=== PATIENT | male | born 1945 | race Caucasian/White ===

== ENCOUNTER → 2017-04-22 | Outpatient (CLI) | payer MEDICARE ==
--- NOTE | 2017-04-22 18:45 | CONS ---
DATE OF CONSULTATION: 04/22/2017 72-year-old gentleman who has been evaluated in the sleep center for possible obstructive sleep apnea-hypopnea syndrome. CONSULTATION/NEW PATIENT EVALUATION HISTORY OF PRESENT ILLNESS/SLEEP-WAKE EVALUATION: SLEEP SCHEDULE: Patient's usual sleep schedule is from around 11:30 p.m. until 7:30 or 8 a.m. FALLING ASLEEP: No problem with falling asleep. He has a TV set in bedroom. DURING SLEEP: Usually sleeps on the side position. He has loud snoring and witnessed episodes of stopped breathing during sleep by his . He wakes up from sleep 3 times with one episode nocturia. He has also sweating, dry mouth. DURING THE DAY/WAKE STATE: In the morning, patient wakes up tired, falling asleep during the day. He has problems with memory, [place] Sleepiness Scale is 5. Past medical history is positive for hypertension, end-stage renal disease, status post kidney transplant, coronary artery disease, with stent insertion and CABG. Recently has been told about atrial fibrillation, arthritis of the ankles, hips and arms. Left knee replacement. CABG, hernia repair, kidney transplant. MEDICATIONS: 1. Aspirin. 2. Simvastatin. 3. Tacrolimus. 4. Doxazosin. 5. Amlodipine. 6. Xarelto. 7. Vitamins. 8. Iron supplements. SOCIAL HISTORY: Positive for smoking many years ago; quit 45 years ago. Alcohol consumption rarely. FAMILY HISTORY: Hypertension, heart problems, hyperlipidemia, epilepsy, arthritis, cancer. REVIEW OF SYSTEMS: No fevers. No double vision. No recent chest pain. No shortness of breath. No abdominal pain. No bleeding episodes. No blood in urine. No seizure episodes. PHYSICAL EXAMINATION: gentleman without distress. VITAL SIGNS: BP 136/82, HR 58, RR 16. Height 5 feet 6 inches. Weight 167, BMI 26.9. Neck 15-1/2 inches in circumference. Temperature 97.3. Oxygen saturation at room air 96%. Oropharynx retrognathia 8 mm, low position of soft palate, restriction of nasal breathing. NECK: Supple. No JVD. Thyroid is not palpable. LUNGS: Clear to percussion and to auscultation. Good air exchange. No wheezing or rhonchi. HEART: S1, S2 irregular irregularly heart tones. ABDOMEN: Soft and nontender. Bowel sounds are present. No organomegaly appreciated. EXTREMITIES: No clubbing or cyanosis. FRUIT VENDOR: Awake, alert, and oriented x3. Cranial nerves 2 to 7 intact. There is no fasciculation or atrophy noted. No focal deficits observed. IMPRESSION: 1. Snoring, witnessed episodes of stopped breathing, low position of his soft palate, awakenings from sleep, retrognathia, patient takes naps during the day, obstructive sleep apnea-hypopnea syndrome. 2. Coronary artery disease, status post stent insertions coronary artery bypass graft. 3. Hypertension. 4. History of end-stage renal disease secondary to Hypertension ? Status post kidney transplant in 1997. 5. Status post hernia repair. 6. Hyperlipidemia. 7. Atrial fibrillation. 8. Status post left knee replacement. 9. Arthritis, of the hands, ankles and hips. PLAN: 1. Polysomnography for evaluation of patient's breathing during sleep. 2. CPAP/BiPAP titration if sleep study confirms obstructive sleep apnea-hypopnea syndrome. 3. Preferable position during sleep on the side. 4. No driving if patient feels any sleepiness. Patient is aware of civil and criminal liability for unsafe driving. 5. I will see patient for follow-up visit to explain results of the testing and following plan. Thank you very much for referring this patient for consultation. Sincerely, Mike Cervantes MD, PhD, FAASM. Diplomat of [place] [employer], Sleep Medicine Board by [place] [employer] [place] [employer] Care Connector of [facility] [place]
== END ==
LOC: SLEEP 13:55
PROVIDERS: ATTEND Internal Medicine
DX: R06.83 Snoring (principal); I25.10 Atherosclerotic heart disease of native coronary artery without angina pectoris; I10 Essential (primary) hypertension; I12.0 Hypertensive chronic kidney disease with stage 5 chronic kidney disease or end stage renal disease; N18.6 End stage renal disease; M19.90 Unspecified osteoarthritis, unspecified site; E78.5 Hyperlipidemia, unspecified; I48.91 Unspecified atrial fibrillation; Z96.652 Presence of left artificial knee joint; Z79.82 Long term (current) use of aspirin; Z79.899 Other long term (current) drug therapy
CPT/HCPCS: 99211

== ENCOUNTER → 2017-08-05 | Outpatient (CLI) | payer MEDICARE ==
--- NOTE | 2017-08-05 19:00 | PN ---
PROGRESS NOTE DATE OF SERVICE: 08/05/2017. 72-year-old gentleman has been followed in the Sleep center for treatment of severe obstructive sleep apnea-hypopnea syndrome. The patient recently had CPAP titration and I checked his new machine. He is trying to use machine every night with a nasal pillow mask but has some leak from the mask and sometimes probably takes his mask off for the second part of the night. I checked his CPAP unit. Usage is 30/30 nights, but 16/30 nights for more than 4 hours. Average usage according to the machine is 3.6 hours. Pressure on the machine is 10/6 cm of water. Apnea-hypopnea index 15.5. [place] Sleepiness Scale today is 7. MEDICATIONS: 1. Simvastatin. 2. . 3. Doxazosin. 4. Amlodipine. 5. Xarelto. 6. Vitamins. 7. Iron supplement. PHYSICAL EXAM: General: Patient is in no distress. VITAL SIGNS: BP 148/100, HR 60, RR 16, weight 174 pounds. Temp 98.2, oxygen saturation at room air 97%. HEENT: PERRLA, EOMI. Evaluation of oropharynx extremely low position of soft palate. NECK: Supple. No JVD. Thyroid is not palpable. HEART: S1, S2 irregularly irregular. LUNGS: clear to percussion and to auscultation. Good air exchange. No wheezing or rhonchi. ABDOMEN: Slightly obese. Soft and nontender. Bowel sounds are present. No organomegaly appreciated. EXTREMITIES: No cyanosis or clubbing. LASER PRINT OPERATOR: Awake, alert and oriented x3. Cranial nerves II through VII intact. There is no fasciculation or atrophy noted. No focal deficits observed. IMPRESSION: 1. Obstructive sleep apnea-hypopnea syndrome. Patient is using equipment every night but not for the whole night. Sleeps better with the machine and feels better. 2. Severe periodic limb movements during titration. 3. Coronary artery disease, status post stent insertion and coronary artery bypass grafting. 4. Hypertension. 5. History of end-stage renal disease, status post kidney transplant in 1997. 6. Status post hernia repair. 7. Hyperlipidemia. 8. Atrial fibrillation. 9. Status post left knee replacement. 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 PLAN: 1. We fitted the patient with a different nasal pillow mask Franco FX. 2. I adjusted regimen in the machine to higher level with maximum of 15 and minimal 6. 3. The patient is to continue to use equipment every night for the whole night. 4. No driving if feeling sleepiness. Thank you very much for allowing me to participate in management of your patient. Sincerely, Mike Cervantes MD, PhD, FAASM Diplomat of [place] Board of Sleep Medicine, Sleep Medicine Board by [employer] Specialties [employer] Board of Internal Medicine House Wrecker [facility] [place] MMODL / ENEDINAN: [id number] /
== END ==
LOC: SLEEP 16:38
PROVIDERS: ATTEND Internal Medicine
DX: G47.33 Obstructive sleep apnea (adult) (pediatric) (principal); G47.61 Periodic limb movement disorder; I25.10 Atherosclerotic heart disease of native coronary artery without angina pectoris; I10 Essential (primary) hypertension; E78.5 Hyperlipidemia, unspecified; I48.91 Unspecified atrial fibrillation; M19.041 Primary osteoarthritis, right hand; M19.042 Primary osteoarthritis, left hand; M16.0 Bilateral primary osteoarthritis of hip; Z79.899 Other long term (current) drug therapy

== ENCOUNTER → 2017-08-25 | Outpatient (CLI) | payer MEDICARE ==
--- NOTE | 2017-08-25 18:47 | PN ---
PROGRESS NOTE DATE OF SERVICE: 08/25/2017 72-year-old gentleman has been followed in Sleep Center for treatment of obstructive sleep apnea-hypopnea syndrome. The patient continued to use his machine every night, and according to him and his family he is using it for the whole nights, but reading from the machine shows for the last months usage is 30/30 nights, but usage for more than 4 hours only 9/30 nights. Average usage according to the machine 2.8 hours. Average pressure in the machine is 13.2/9.2. I put it in automatic regimen and a maximal inspiratory pressure 15 and minimal expiratory pressure 6. Leak is 29 L/minute which is borderline. With this regimen Apnea-hypopnea index 19.5, central abnormalities 2.3. [place] Sleepiness Scale today is 8. MEDICATIONS: 1. Simvastatin. 2. Doxazosin. 3. Amlodipine. 4. Xarelto. 5. Vitamins. 6. Iron supplement. PHYSICAL EXAM: gentleman without distress BP 167/92, HR 49, RR 16, height 5 feet 6 inches and weight 174, BMI 27.6, temperature 97.9, oxygen saturation on room air 96%. Evaluation of oropharynx showed low position of soft palate: Heart S1, S2 irregularly regular. Neck Supple, no JVD. Thyroid is not palpable. LUNGS Clear to percussion and to auscultation. Good air exchange. No wheezing or rhonchi. HEART S1, S2 regular. No murmurs, gallops, or rubs. ABDOMEN Soft and nontender. Bowel sounds are present. No organomegaly appreciated. EXTREMITIES No clubbing or cyanosis. HEDGE FUND TRADER Awake, alert, and oriented X3. Cranial nerves 2 to 7 intact. There is no fasciculation or atrophy. noted. No focal deficits observed. IMPRESSION: 1. Obstructive sleep apnea-hypopnea syndrome. Patient is using equipment every night but possibly not always for the whole night by the reading from the machine, but according to family, again he is using equipment every night for the whole night. Breathing improved on the machine, but not to the normal range. 2. Coronary artery disease, status post stent insertion. 3. Hypertension. 4. Atrial fibrillation. 5. Polyarthritis of hands and hips. 6. History of severe periodic limb movements during titration. 7. Hyperlipidemia. 8. Status post left knee replacement. PLAN: 1. I adjusted maximal inspiratory pressure to 16 and minimal expiratory pressure to 5. 2. Patient will continue to use his equipment every night for the whole night. 3. I will write a prescription to check machine in [employer]. 4. No driving if feeling sleepiness. Thank you very much for allowing me to participate in management of your patient. Sincerely, Mike Cervantes MD, PhD, FAASM Diplomat of [employer] Board [employer] Medical Specialties [employer] Board of Internal Medicine Gunite Mixer of [facility] [place] MMODL / IJN: [id number] /
== END | disposition home or self-care (01) ==
LOC: SLEEP 16:15
PROVIDERS: ATTEND Internal Medicine
DX: G47.33 Obstructive sleep apnea (adult) (pediatric) (principal); I25.10 Atherosclerotic heart disease of native coronary artery without angina pectoris; I10 Essential (primary) hypertension; E78.5 Hyperlipidemia, unspecified; I48.91 Unspecified atrial fibrillation; M13.842 Other specified arthritis, left hand; M13.841 Other specified arthritis, right hand; M13.852 Other specified arthritis, left hip; M13.851 Other specified arthritis, right hip; Z79.899 Other long term (current) drug therapy; Z96.652 Presence of left artificial knee joint

== ENCOUNTER → 2017-10-14 | Outpatient (CLI) | payer MEDICARE ==
--- NOTE | 2017-10-14 11:50 | PN ---
PROGRESS NOTE DATE OF SERVICE: 10/14/2017 A 72-year-old gentleman has been followed in sleep center for treatment of obstructive sleep apnea-hypopnea syndrome. During the previous visit because of significant respiratory abnormalities on the machine, apnea-hypopnea index at that time was 19.5 with central abnormality just 2.3. I changed regimen in the machine to minimal expiratory pressure of 5.0 and maximal inspiratory pressure to 16 cm of water with a pressure support of 4. The patient came back to check his progress. He sleeps well. No sleepiness during the day. [place] Sleepiness Scale is 5. No snoring with the machine. I checked his machine. Usage is 100% of the time more than 4 hours. Average usage is 8 hours, 95% of pressure is 14.2 with expiratory pressure 10.2. Leak is 26 L/minute which is about the same. Apnea-hypopnea index for the last night only 3.8 for the last month it is 7.2, total apnea index 6.9, central apnea index 2.0. MEDICATIONS: Doxazosin, simvastatin, amlodipine, Xarelto, iron supplement, vitamins. PHYSICAL EXAM: During physical exam, patient in no distress. VITAL SIGNS: BP 150/82, HR 54, RR 16, height 5 feet 6 inches, weight 180, BMI 29.0, temperature 97.7, oxygen saturation on room 98%. HEENT: PERRLA, EOMI, evaluation of oropharynx showed low position of soft palate. Neck: Supple, no JVD. Thyroid is not palpable. LUNGS: Clear to percussion and to auscultation. Good air exchange. No wheezing or rhonchi. HEART: S1, S2, irregular. ABDOMEN: Soft and nontender. Bowel sounds are present. No organomegaly appreciated. EXTREMITIES: No clubbing or cyanosis. LEVEL VIAL INSIDE GRINDER: Awake, alert, and oriented x3. Cranial nerves 2 to 7 intact. There is no fasciculation or atrophy. noted. No focal deficits observed. IMPRESSION: 1. Obstructive sleep apnea-hypopnea syndrome, presently on control with above- mentioned regimen of minimal expiratory pressure of 5.0, maximal inspiratory pressure of 16, and pressure support of 4. 2. Coronary artery disease, status post stent insertion. 3. Hypertension. 4. History of atrial fibrillation. 5. Polyarthritis of hands and hips. 6. History of severe periodic limb movements during titration. 7. Hyperlipidemia. 8. Status post left knee replacement. PLAN: 1. Continue treatment with positive air pressure every night for the whole night. 2. Watching weight. 3. Sleep hygiene with regular time in bed for at least 8 hours. 4. No driving if feeling sleepiness. Thank you very much for allowing me to participate in management of your patient Sincerely, Mike Cervantes MD, PhD, FAASM Diplomat of [place] [employer] Medical Specialties [place] Board of Internal Medicine Hand Button Splitter of [facility] [place] MMODL / IJN: [id number] /
== END | disposition home or self-care (01) ==
LOC: SLEEP 10:56
PROVIDERS: ATTEND Internal Medicine
DX: G47.33 Obstructive sleep apnea (adult) (pediatric) (principal); I25.10 Atherosclerotic heart disease of native coronary artery without angina pectoris; I10 Essential (primary) hypertension; E78.5 Hyperlipidemia, unspecified; M13.89 Other specified arthritis, multiple sites; Z96.652 Presence of left artificial knee joint; Z95.5 Presence of coronary angioplasty implant and graft; Z86.79 Personal history of other diseases of the circulatory system; Z79.899 Other long term (current) drug therapy; Z79.01 Long term (current) use of anticoagulants

== ENCOUNTER → 2018-03-31 | Outpatient (CLI) | payer MEDICARE ==
--- NOTE | 2018-03-31 11:33 | SFUN ---
SLEEP CENTER FOLLOW UP NOTE DATE OF SERVICE: 03/31/2018 A 73-year-old gentleman has been followed in the sleep center for treatment of obstructive sleep apnea-hypopnea syndrome. Patient continued to use CPAP equipment every night without significant problems. He did not change any of his equipment for the last year. I checked his BiPAP unit for the last 6 months, usage is 159/180 nights for more than 4 hours. Average usage is 7.1 hour. Pressure in the range of BiPAP up to 16 with a pressure support of 4, minimal inspiratory pressure is 5. Most of the time, pressure in the range 14/10. Leak about 23 L/minute. Apnea-hypopnea index for the 6 months is 7.6. The patient was hospitalized recently for COPD problems. [place] Sleepiness Scale today is 4. MEDICATIONS: Albuterol, budesonide, amlodipine, doxazosin, losartan, mycophenolate, Xarelto, , simvastatin. PHYSICAL EXAMINATION: During physical exam, patient in no distress. VITAL SIGNS: BP 133/77, HR 60, RR 16, height 5 feet 6-1/2 inches, weight 172, BMI 27.3. The patient decreased his weight around 8 pounds comparing with the previous visit. Temperature 97.2, oxygen saturation room air 97% HEENT: PERRLA, EOMI. Oropharynx extremely low position of soft palate. NECK: Supple, no JVD. Thyroid is not palpable. LUNGS: Clear to percussion and to auscultation. Good air exchange. No wheezing or rhonchi. HEART: S1, S2 regular. No murmurs, gallops, or rubs. ABDOMEN: Soft and nontender. Bowel sounds are present. No organomegaly appreciated. EXTREMITIES: No clubbing or cyanosis. PHARMACY TEACHER: Awake, alert, and oriented X3. Cranial nerves 2 to 7 intact. There is no fasciculation or atrophy. noted. No focal deficits observed. IMPRESSION: 1. Obstructive sleep apnea-hypopnea syndrome. The patient demonstrated good compliance with treatment, benefitting from treatment. 2. Leak has been documented. Patient did not change his mask and filters in the machine for about 1 year. 3. Coronary artery disease, status post stent insertion. 4. Chronic obstructive pulmonary disease. 5. Hypertension. 6. History of atrial fibrillation. 7. Polyarthritis of hands and hips. 8. History of significant periodic limb movements during titration. Clinically no significant amount of leg movements at night according to his . 9. Hyperlipidemia. 10.Status post left knee replacement. PLAN: 1. Patient will continue to use BiPAP equipment every night. 2. Prescription for all necessary CPAP supplies including mask, tube, filters to replace. 3. Sleep hygiene with regular time in bed for at least 8 hours. 4. Precautions related to driving. No driving if feeling any sleepiness. Thank you very much for allowing me to participate in management of your patient. Sincerely, Mike Cervantes MD, PhD, FAASM Diplomat of [place] [employer] Medical Specialties [place] Board of Internal Medicine Em Physician of [facility] [place] MMODL / IJN: [id number] /
== END | disposition home or self-care (01) ==
LOC: SLEEP 09:56
PROVIDERS: ATTEND Internal Medicine
DX: G47.33 Obstructive sleep apnea (adult) (pediatric) (principal); G47.61 Periodic limb movement disorder; I25.10 Atherosclerotic heart disease of native coronary artery without angina pectoris; M19.041 Primary osteoarthritis, right hand; M16.0 Bilateral primary osteoarthritis of hip; M19.042 Primary osteoarthritis, left hand; J44.9 Chronic obstructive pulmonary disease, unspecified; I10 Essential (primary) hypertension; I48.91 Unspecified atrial fibrillation; Z99.89 Dependence on other enabling machines and devices; Z79.51 Long term (current) use of inhaled steroids; Z79.899 Other long term (current) drug therapy; Z96.651 Presence of right artificial knee joint; Z95.5 Presence of coronary angioplasty implant and graft

== ENCOUNTER 2018-04-24 22:46 | Emergency (ER) | payer MEDICARE ==
[2018-04-24 22:51] VITALS: TEMP 97.7
--- NOTE | 2018-04-24 23:21 | ED ---
Abdominal Pain HPI - General Chief Complaint: Abdominal Pain Stated Complaint: Constipation Time Seen by Provider: 04/24/18 23:00 Source: patient, family, RN notes reviewed Mode of arrival: ambulatory Limitations: no limitations - History of Present Illness Initial Comments: This is a 73-year-old male who presents to the emergency department with chief complaint of low abdominal pain for the past 5-6 hours. Patient states that he has been trying to have a bowel movement all afternoon but has been unable to. He states his last bowel movement was this morning but it was hard. He states he has been taking laxatives and stool softeners. Patient describes his abdominal pain as achy. He states that it is constant. He denies any urinary symptoms such as dysuria or hematuria. 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 His last chemotherapy treatment was on . Patient denies any fevers but does report chills. - Related Data Home Medications Medication Instructions Recorded Confirmed Aspirin 325 mg PO DAILY 03/15/14 03/15/14 Cyclosporine, Modified [Neoral] 100 mg PO HS 03/15/14 03/16/14 Cyclosporine, Modified [Neoral] 125 mg PO DAILY 03/15/14 03/16/14 Doxazosin [Cardura] 2 mg PO BID 03/15/14 03/16/[address] [Myfortic] 480 mg PO BID 03/15/14 03/16/14 Niacin [Niacin ER] 500 mg PO HS 03/15/14 03/16/14 Simvastatin [Zocor] 20 mg PO HS 03/15/14 03/16/14 amLODIPine BESYLATE 2.5 mg PO DAILY 03/16/14 03/16/14 Previous Rx's Medication Instructions Recorded Polyethylene Glycol 3350 [Miralax] 17 gm PO DAILY #1 bottle 04/25/18 Allergies Allergy/AdvReac Type Severity Reaction Status Date / Time No Known Allergies Allergy Verified 04/24/18 22:51 Review of Systems ROS Statement: Those systems with pertinent positive or pertinent negative responses have been documented in the HPI. ROS Other: All systems not noted in ROS Statement are negative. Past Medical History Past Medical History: Cancer, Hypertension, Myocardial Infarction (VT), Renal Disease Additional Past Medical History / Comment(s): skin cancer Last Myocardial Infarction Date:: unknown History of Any Multi-Drug Resistant Organisms: None Reported Past Surgical History: Coronary Bypass/CABG, Heart Catheterization With Stent, Hernia Repair, Joint Replacement Additional Past Surgical History / Comment(s): kidney transplant Past Anesthesia/Blood Transfusion Reactions: No Reported Reaction Date of Last Stent Placement:: unknown Smoking Status: Former smoker Past Alcohol Use History: None Reported Past Drug Use History: None Reported General Exam - General Exam Comments Initial Comments: General: Awake and alert, well-developed; in no apparent distress. HEENT: Head atraumatic, normocephalic. Pupils are equal, round and reactive to light. Extraocular movements intact. Oropharynx moist without erythema or exudate. Neck: Supple. Normal ROM. Cardiovascular: Regular rate and rhythm. No murmurs, rubs or gallops. Chest symmetrical. Respiratory: Lungs clear to auscultation bilaterally. No wheezes, rales or rhonchi. Normal respiratory effort with no use of accessory muscles. Abdomen: Soft, non-distended. Mild generalized tenderness on palpation of lower abdomen. No rigidity, rebound or guarding. Normal bowel sounds in all 4 quadrants. Musculoskeletal: Normal ROM, no tenderness bilateral upper and lower extremities. Ambulating normally. Skin: [place], warm and dry without rashes or lesions. Neurological: Alert and oriented x3. CN II-XII grossly intact. Speech is fluent and answers are appropriate. No focal neuro deficits. Psychiatric: Normal mood and affect. No overt signs of depression or anxiety noted. Limitations: no limitations Course Vital Signs 04/24/18 04/25/18 22:48 01:24 Temperature 97.7 F Pulse Rate 85 77 Respiratory 18 16 Rate Blood Pressure 178/80 159/79 O2 Sat by Pulse 96 98 Oximetry - Reevaluation(s) Reevaluation #1: At this time, patient resting comfortably in bed. He continues to complain of abdominal pain. There is tenderness on palpation of the left lower quadrant. Discussed further evaluation with computed tomography scan. Patient is in agreement. 04/25/18 00:33 Medical Decision Making - Medical Decision Making This is a 73-year-old male who presented to the emergency department with chief complaint of low abdominal pain that started a few hours prior to arrival. Patient thought that it may be due to constipation, however does report that he had a bowel movement earlier this morning. X-ray KUB was obtained and revealed 2 calcifications over the left kidney, however no evidence for constipation. Patient is currently undergoing chemotherapy for squamous cell carcinoma. On physical examination, there is tenderness on palpation of the left lower quadrant. CMP revealed a BUN of 42 and a creatinine of 1.3, however patient does have a renal transplant. UA revealed moderate leukocyte esterase but is otherwise unremarkable. Computed tomography scan of the abdomen and pelvis without contrast revealed evidence for constipation and probable abdominal aortic aneurysm with chronic dissection. I spoke directly with radiology, Dr. Lundberg. He states that he saw calcifications in the lumen which are indicative of chronic minor dissections. He states this is a not a concern and patient is not actively dissecting. Did not recommend CTA. I discussed findings with patient. I did recommend taking MiraLAX daily until stools are soft for patient's constipation. Patient is in agreement with this. Vital signs are stable and he is in no acute distress. He will be discharged home at this time. All questions answered. - Lab Data Result diagrams: 04/24/18 23:13 04/24/18 23:13 Lab Results 04/24/18 04/24/18 04/24/18 Range/Units 23:13 23:13 23:13 WBC 8.1 (3.8-10.6) k/uL RBC 3.99 L (4.30-5.90) m/uL Hgb 11.1 L (13.0-17.5) gm/dL Hct 38.1 L (39.0-53.0) % MCV 95.5 (80.0-100.0) fL MCH 28.0 (25.0-35.0) pg MCHC 29.3 L (31.0-37.0) g/dL RDW 15.3 (11.5-15.5) % Plt Count 176 (150-450) k/uL Neutrophils % 93 % Lymphocytes % 3 % Monocytes % 3 % Eosinophils % 0 % Basophils % 0 % Neutrophils # 7.5 (1.3-7.7) k/uL Lymphocytes # 0.3 L (1.0-4.8) k/uL Monocytes # 0.2 (0-1.0) k/uL Eosinophils # 0.0 (0-0.7) k/uL Basophils # 0.0 (0-0.2) k/uL Hypochromasia Moderate Sodium 139 (137-145) mmol/L Potassium 4.6 (3.5-5.1) mmol/L Chloride 103 (98-107) mmol/L Carbon Dioxide 21 L (22-30) mmol/L Anion Gap 15 mmol/L BUN 42 H (9-20) mg/dL Creatinine 1.30 H (0.66-1.25) mg/dL Est GFR (CKD-EPI)AfAm 64 (>60 ml/min/1.73 sqM) Est GFR (CKD-EPI)NonAf 55 (>60 ml/min/1.73 sqM) Glucose 168 H (74-99) mg/dL Calcium 9.1 (8.4-10.2) mg/dL Total Bilirubin 0.7 (0.2-1.3) mg/dL AST 35 (17-59) U/L ALT 40 (21-72) U/L Alkaline Phosphatase 100 (38-126) U/L Total Protein 7.2 (6.3-8.2) g/dL Albumin 4.3 (3.5-5.0) g/dL Amylase 114 H (30-110) U/L Lipase 47 (23-300) U/L Urine Color Yellow Urine Appearance Clear (Clear) Urine pH 5.0 (5.0-8.0) Ur Specific [place] 1.011 (1.001-1.035) Urine Protein 1+ H (Negative) Urine Glucose (UA) Negative (Negative) Urine Ketones Negative (Negative) Urine Blood Negative (Negative) Urine Nitrite Negative (Negative) Urine Bilirubin Negative (Negative) Urine Urobilinogen <2.0 (<2.0) mg/dL Ur Leukocyte Esterase Moderate H (Negative) Urine RBC 1 (0-5) /hpf Urine WBC 3 (0-5) /hpf Ur Squamous Epith Cells <1 (0-4) /hpf Urine Mucus Rare H (None) /hpf - Radiology Data Radiology results: report reviewed, image reviewed X-ray KUB impression: Possible left renal calculi. Nonacute abdomen. CT abdomen and pelvis without contrast impression: Scarring and subsegmental atelectasis at the left posterior lung bases. Cardiomegaly. Left-sided transplant kidney shows no evidence of instruction. Constipation. Abdominal aortic aneurysm with probable chronic dissection. Disposition Clinical Impression: Constipation, Abdominal pain Disposition: HOME SELF-CARE Condition: Good Instructions: Constipation (ED) Additional Instructions: Please take medications as prescribed. Please follow up with primary care provider within 1-2 days. Return to emergency department if symptoms should worsen or any concerns arise. Prescriptions: Polyethylene Glycol 3350 [Miralax] 17 gm PO DAILY #1 bottle Is patient prescribed a controlled substance at d/c from ED?: No Referrals: Robin Ibanez MD [Primary Care Provider] - 1-2 days Time of Disposition: 02:31
[2018-04-24 23:41] LABS: Basophils % (A) 0 %; Eosinophils % (A) 0 %; HCT 38.1 % (39.0-53.0); HGB 11.1 gm/dL (13.0-17.5); Hypochromasia Moderate; Lymphocytes # (A) 0.3 k/uL (1.0-4.8); Lymphocytes % (A) 3 %; MCHC 29.3 g/dL (31.0-37.0); MCV 95.5 fL (80.0-100.0); Mean Platelet Volume 7.5; Monocytes # (A) 0.2 k/uL (0-1.0); Monocytes % (A) 3 %; Neutrophils # (A) 7.5 k/uL (1.3-7.7); Neutrophils % (A) 93 %; Platelet Count 176 k/uL (150-450); RBC 3.99 m/uL (4.30-5.90); RDW 15.3 % (11.5-15.5); WBC 8.1 k/uL (3.8-10.6)
[2018-04-24 23:42] LABS: Appearance,Urine Clear (Clear); Bilirubin,Urine Negative (Negative); Blood,Urine Negative (Negative); Color,Urine Yellow; Glucose,Urine (UA) Negative (Negative); Ketones,Urine Negative (Negative); Leukocyte Esterase,Urine Moderate (Negative); Mucus,Urine Rare /hpf; Nitrite,Urine Negative (Negative); Protein,Urine 1+ (Negative); RBC,Urine 1 /hpf (0-5); Specific Gravity,Urine 1.011 (1.001-1.035); Squamous Epithelial Cell,Urine <1 /hpf (0-4); Urobilinogen,Urine <2.0 mg/dL (<2.0); WBC,Urine 3 /hpf (0-5)
[2018-04-24 23:50] LABS: Albumin 4.3 g/dL (3.5-5.0); Calcium 9.1 mg/dL (8.4-10.2); Potassium 4.6 mmol/L (3.5-5.1); Total Bilirubin 0.7 mg/dL (0.2-1.3); Total Protein 7.2 g/dL (6.3-8.2)
--- NOTE | 2018-04-24 23:53 | XR ---
EXAMINATION TYPE: XR KUB DATE OF EXAM: 04/24/2018 COMPARISON: NONE HISTORY: Abdominal pain TECHNIQUE: 2 views FINDINGS: There is no sign of intestinal obstruction or pneumoperitoneum. There are two 7 mm calcific ations over the left kidney. There is no evidence of a mass. Lung bases are clear. IMPRESSION: Possible left renal calculi. Nonacute abdomen.
--- NOTE | 2018-04-25 01:11 | CT ---
EXAMINATION TYPE: CT abdomen pelvis wo con DATE OF EXAM: 04/25/2018 COMPARISON: NONE HISTORY: No prior, gen abd pain and constipation, history of renal transplant CT DLP: 496.50 mGycm Automated exposure control for dose reduction was used. TECHNIQUE: Helical acquisition of images was performed from the lung bases through the pelvis. FINDINGS: Lung bases are clear of consolidation. There is mild reticular linear density at the left lung base. There is no pleural effusion. Liver shows no focal defect. Bile ducts are not dilated. There is moder ate atherosclerotic vascular calcification. Spleen has normal size. There is no evidence of pancreati c mass. Gallbladder has normal size. There is advanced renal atrophy. Kidneys are small. There is 3.7 cm aneurysm of the mid abdominal aor ta. There is probably chronic aortic dissection. There is no retroperitoneal adenopathy. There is mil d aneurysm of the common iliac arteries. Bladder distends smoothly. There is left renal transplant. T here is no hydronephrosis. There is retained fecal material throughout the colon. There is no sign of free air. There is no ascites. There are spondylotic changes in the lumbar spine. IMPRESSION: SCARRING AND SUBSEGMENTAL ATELECTASIS AT THE LEFT POSTERIOR LUNG BASE. CARDIOMEGALY. LEFT SIDE TRANSP LANT KIDNEY SHOWS NO EVIDENCE OF OBSTRUCTION. CONSTIPATION. ABDOMINAL AORTIC ANEURYSM WITH PROBABLE C HRONIC DISSECTION.
[2018-04-25 01:27] VITALS: RESP 16
[2018-04-25] MEDS ORDERED: BISACODYL 5 MG TABLET.DR PO STA (02:29)
[2018-04-25 02:40] VITALS: BP 167/85; PULSE 80
== END 2018-04-25 03:03 | disposition home or self-care (01) ==
LOC: EC 22:46
DX: K59.00 Constipation, unspecified (principal); R10.30 Lower abdominal pain, unspecified; C80.1 Malignant (primary) neoplasm, unspecified; I10 Essential (primary) hypertension; I25.2 Old myocardial infarction; Z95.1 Presence of aortocoronary bypass graft; Z95.5 Presence of coronary angioplasty implant and graft; Z87.891 Personal history of nicotine dependence; Z94.0 Kidney transplant status; Z92.21 Personal history of antineoplastic chemotherapy; Z79.82 Long term (current) use of aspirin; Z79.899 Other long term (current) drug therapy
CPT/HCPCS: 36415; 74018; 74176; 80053; 81001; 82150; 83690; 85025; 99284

== ENCOUNTER 2018-04-27 05:22 | Inpatient (IN) | payer MEDICARE ==
[2018-04-27 06:08] LABS: Basophils % (A) 0 %; Eosinophils % (A) 0 %; HCT 35.7 % (39.0-53.0); HGB 11.1 gm/dL (13.0-17.5); Hypochromasia Slight; Lymphocytes # (A) 0.8 k/uL (1.0-4.8); Lymphocytes % (A) 17 %; MCH 29.4 pg (25.0-35.0); MCHC 31.2 g/dL (31.0-37.0); MCV 94.4 fL (80.0-100.0); Mean Platelet Volume 7.5; Monocytes # (A) 0.1 k/uL (0-1.0); Monocytes % (A) 3 %; Neutrophils # (A) 3.5 k/uL (1.3-7.7); Neutrophils % (A) 78 %; Platelet Count 195 k/uL (150-450); RBC 3.78 m/uL (4.30-5.90); RDW 15.1 % (11.5-15.5); WBC 4.5 k/uL (3.8-10.6)
[2018-04-27 06:36] LABS: ALT 75 U/L (21-72); AST 45 U/L (17-59); Albumin 3.8 g/dL (3.5-5.0); Alkaline Phosphatase 93 U/L (38-126); Amylase 106 U/L (30-110); Anion Gap 18 mmol/L; Blood Urea Nitrogen 68 mg/dL (9-20); Carbon Dioxide 20 mmol/L (22-30); Chloride 97 mmol/L (98-107); Glucose 139 mg/dL (74-99); Lipase <10 U/L (23-300); Potassium 4.5 mmol/L (3.5-5.1); Sodium 135 mmol/L (137-145); Total Protein 6.6 g/dL (6.3-8.2)
--- NOTE | 2018-04-27 06:44 | XR ---
EXAMINATION TYPE: XR abdomen acute w cxr DATE OF EXAM: 04/27/2018 COMPARISON: 04/24/2018 HISTORY: Lower abdominal pain TECHNIQUE: There is small calcified granuloma in the right upper lobe. There is mild linear density at the left lung base. There are some gas and fluid-filled loops of bowel in the abdomen. There are m ultiple fluid levels. There is 5 mm calcification over the left kidney. There is no sign of free air. IMPRESSION: Subsegmental atelectasis at the left lung base. Intestinal gas pattern consistent with ileus or parti al mechanical obstruction. No free air. Follow-up is recommended. Fluid levels and distention are inc reased compared to last exam.
[2018-04-27] MEDS ORDERED: ONDANSETRON 4 MG/2 ML VIAL IVP PRN (06:48)
[2018-04-27] MEDS ORDERED: NALOXONE 0.4 MG/ML 1 ML VIAL IV PRN (06:48)
[2018-04-27] MEDS: MORPHINE SULFATE 2 MG/ML SYRINGE IV PRN ×2 (06:58→11:34)
--- NOTE | 2018-04-27 07:13 | ED ---
Abdominal Pain HPI - General Chief Complaint: Abdominal Pain Stated Complaint: constipation Time Seen by Provider: 04/27/18 05:57 Source: patient, family Mode of arrival: wheelchair Limitations: no limitations - History of Present Illness Initial Comments: This patient is a 73-year-old man, who presents to be evaluated for abdominal pain. This is been going on for 3-4 days now. The patient also has been having some episodes of nausea and vomiting, and he feels like he is constipated , as he has not had a bowel movement since Wednesday. The patient was seen here 3 days ago for similar symptoms, but was feeling a little better and went home. He states that since then he has had increasing abdominal distention, more episodes of vomiting, now with some coffee-ground material, and is not passing any bowel movements and not having any flatus for the past day. MD Complaint: abdominal pain Onset/Timin -: days(s) Location: diffuse Radiation: none Migration to: no migration Severity: moderate Quality: cramping, fullness Consistency: colicky Improves With: vomiting Worsens With: nothing Associated Symptoms: nausea, vomiting, constipation - Related Data Home Medications Medication Instructions Recorded Confirmed Aspirin 325 mg PO DAILY 03/15/14 04/27/18 Cyclosporine, Modified [Neoral] 100 mg PO HS 03/15/14 04/27/18 Cyclosporine, Modified [Neoral] 125 mg PO DAILY 03/15/14 04/27/18 Doxazosin [Cardura] 2 mg PO BID 03/15/14 04/27/[address] [Myfortic] 480 mg PO BID 03/15/14 04/27/18 Niacin [Niacin ER] 500 mg PO HS 03/15/14 04/27/18 Simvastatin [Zocor] 20 mg PO HS 03/15/14 04/27/18 amLODIPine BESYLATE 2.5 mg PO DAILY 03/16/14 04/27/18 Previous Rx's Medication Instructions Recorded Polyethylene Glycol 3350 [Miralax] 17 gm PO DAILY #1 bottle 04/25/18 Allergies Allergy/AdvReac Type Severity Reaction Status Date / Time No Known Allergies Allergy Verified 04/27/18 05:29 Review of Systems ROS Statement: Those systems with pertinent positive or pertinent negative responses have been documented in the HPI. ROS Other: All systems not noted in ROS Statement are negative. Constitutional: Denies: fever, chills Respiratory: Denies: cough, dyspnea Cardiovascular: Denies: chest pain, edema, syncope Gastrointestinal: Reports: abdominal pain, nausea, vomiting, constipation, hematemesis (Coffee-ground material). Denies: diarrhea, melena, hematochezia Genitourinary: Denies: dysuria, hematuria Musculoskeletal: Denies: back pain Skin: Denies: rash Neurological: Denies: headache, weakness, numbness Hematological/Lymphatic: Denies: easy bleeding Past Medical History Past Medical History: Cancer, Hypertension, Myocardial Infarction ([place]), Renal Disease Additional Past Medical History / Comment(s): skin cancer Last Myocardial Infarction Date:: unknown History of Any Multi-Drug Resistant Organisms: None Reported Past Surgical History: Coronary Bypass/CABG, Heart Catheterization With Stent, Hernia Repair, Joint Replacement Additional Past Surgical History / Comment(s): kidney transplant Past Anesthesia/Blood Transfusion Reactions: No Reported Reaction Date of Last Stent Placement:: unknown Smoking Status: Former smoker Past Alcohol Use History: None Reported Past Drug Use History: None Reported General Exam Limitations: no limitations General appearance: alert, in no apparent distress Head exam: Present: atraumatic, normocephalic Eye exam: Present: normal appearance. Absent: scleral icterus, conjunctival injection ENT exam: Present: normal oropharynx Neck exam: Present: normal inspection Respiratory exam: Present: normal lung sounds bilaterally. Absent: respiratory distress, wheezes, rales, rhonchi, stridor Cardiovascular Exam: Present: regular rate, normal rhythm, normal heart sounds. Absent: systolic murmur, diastolic murmur, rubs, gallop GI/Abdominal exam: Present: soft, distended, diminished bowel sounds, hernia ( Patient has a left inguinal hernia which is currently reduced and is nontender.) . Absent: tenderness, guarding, rebound, rigid, mass, pulsatile mass Extremities exam: Present: normal inspection, normal capillary refill. Absent: pedal edema, calf tenderness Back exam: Present: normal inspection. Absent: CVA tenderness (R), CVA tenderness (L) Neurological exam: Present: alert Skin exam: Present: warm, dry, intact, normal color. Absent: rash Course Vital Signs 04/27/18 04/27/18 05:26 07:10 Temperature 98.6 F 97.4 F L Pulse Rate 92 81 Respiratory 18 18 Rate Blood Pressure 128/81 125/71 O2 Sat by Pulse 96 96 Oximetry Medical Decision Making - Medical Decision Making This patient is 73-year-old man presenting with increasing abdominal distention as well as abdominal discomfort and little bit of coffee-ground emesis. The patient's x-ray appears to show worsening ileus versus early small bowel obstruction. Given the discomfort and repeat vomiting, NG tube was discussed and the patient did agree for placement. I placed the NG tube personally, which the patient tolerated well. We did obtain a few 100 mL of coffee-ground material. - Lab Data Result diagrams: 04/27/18 05:50 04/27/18 05:50 Lab Results 04/27/18 04/27/18 04/27/18 Range/Units 05:50 05:50 05:50 WBC 4.5 (3.8-10.6) k/uL RBC 3.78 L (4.30-5.90) m/uL Hgb 11.1 L (13.0-17.5) gm/dL Hct 35.7 L (39.0-53.0) % MCV 94.4 (80.0-100.0) fL MCH 29.4 (25.0-35.0) pg MCHC 31.2 (31.0-37.0) g/dL RDW 15.1 (11.5-15.5) % Plt Count 195 (150-450) k/uL Neutrophils % 78 % Lymphocytes % 17 % Monocytes % 3 % Eosinophils % 0 % Basophils % 0 % Neutrophils # 3.5 (1.3-7.7) k/uL Lymphocytes # 0.8 L (1.0-4.8) k/uL Monocytes # 0.1 (0-1.0) k/uL Eosinophils # 0.0 (0-0.7) k/uL Basophils # 0.0 (0-0.2) k/uL Hypochromasia Slight Sodium 135 L (137-145) mmol/L Potassium 4.5 (3.5-5.1) mmol/L Chloride 97 L (98-107) mmol/L Carbon Dioxide 20 L (22-30) mmol/L Anion Gap 18 mmol/L BUN 68 H (9-20) mg/dL Creatinine 1.70 H (0.66-1.25) mg/dL Est GFR (CKD-EPI)AfAm 46 (>60 ml/min/1.73 sqM) Est GFR (CKD-EPI)NonAf 40 (>60 ml/min/1.73 sqM) Glucose 139 H (74-99) mg/dL Plasma Lactic Acid Papito 1.8 (0.7-2.0) mmol/L Calcium 9.0 (8.4-10.2) mg/dL Total Bilirubin 1.0 (0.2-1.3) mg/dL AST 45 (17-59) U/L ALT 75 H (21-72) U/L Alkaline Phosphatase 93 (38-126) U/L Total Protein 6.6 (6.3-8.2) g/dL Albumin 3.8 (3.5-5.0) g/dL Amylase 106 (30-110) U/L Lipase <10 L (23-300) U/L Disposition Clinical Impression: Partial small bowel obstruction, Abdominal pain Disposition: ADMITTED IP TO THIS HOSP Condition: Fair Is patient prescribed a controlled substance at d/c from ED?: No
[2018-04-27] MEDS ORDERED: SODIUM CHLORIDE 0.9% 1,000 ML IV ONE (07:31)
[2018-04-27] MEDS: SODIUM CHLORIDE 0.9% 1,000 ML IV SCH ×2 (07:35→16:35)
--- NOTE | 2018-04-27 08:50 | HP ---
HISTORY AND PHYSICAL CHIEF COMPLAINT: A 73-year-old white male with bowel obstruction. HISTORY OF PRESENT ILLNESS: This 73-year-old white male feels he has been constipated since Wednesday morning. He was in the ER 3 days ago for similar problems. He went home. He came back. He had some coffee-grounds emesis. An x-ray shows small bowel obstruction for which he is admitted. Surgical consult is pending. He has cramping, fullness of the abdomen, moderate severity, no radiating, diffuse abdomen, vomiting, worsens with nothing. NG tube was placed in the ER. HOME MEDICATIONS: Home medications include: 1. Aspirin. 2. Cyclosporine. 3. Cardura. 4. Myfortic. 5. Niacin ER. 6. Zocor. 7. Amlodipine. ALLERGIES: Allergies are negative. REVIEW OF SYSTEM: Fourteen point review of systems negative except for as mentioned in HPI. PAST MEDICAL HISTORY: Cancer, hypertension, myocardial infarction, renal disease. SURGICAL HISTORY: CABG, heart catheterization with stent, hernia repair, joint replacement. SOCIAL HISTORY: Former smoker. No alcohol. No illicit drugs. PHYSICAL EXAMINATION: Temp 97 to 98, pulse 81 to 90, respirations 18 to 20, blood pressure 120s over 70s to 80s, O2 96% on room air. CARDIOVASCULAR: Regular rate with no murmurs, rubs or gallops. LUNGS: Normal breath sounds. OPHTHALMOLOGIC: Pupils equal, round, react to light and accommodation. ENT: External ear canals within normal limits. EXTREMITIES: Soft, nontender. ABDOMEN: Soft, distended. Diminished bowel sounds. Left inguinal hernia, reducible. Tenderness, guarding, rebound. ASSESSMENT: 1. Small-bowel obstruction with coffee-grounds emesis, abdominal discomfort. NG tube was placed. Surgical recommendations pending. 2. Acute on chronic anemia. 3. Chronic renal disease stage III. 4. Liver enzyme elevation. 5. Hypertension. 6. History of coronary artery disease with stents. 7. History of skin cancer. 8. History of renal disease. Please see further orders in the chart. MMODL / IJN: [id number] /
[2018-04-27] MEDS: ALBUTEROL NEBULIZED 2.5 MG/3 ML INHALATION PRN ×3 (09:16→20:51)
[2018-04-27] MEDS: TACROLIMUS 1 MG CAP PO SCH ×2 (10:43→20:31)
[2018-04-27] MEDS: LOSARTAN 25 MG TAB PO SCH (10:43)
[2018-04-27] MEDS: amLODIPine 10 MG TAB PO SCH (10:43)
[2018-04-27] MEDS: HYDROcodone/APAP 10-325MG 1 EACH TAB PO SCH ×2 (10:43→20:29)
[2018-04-27] MEDS: DOXAZOSIN 2 MG TAB PO SCH (10:43)
[2018-04-27] MEDS: MYCOPHENOLATE SODIUM DR 180 MG TABLET.DR PO SCH ×2 (10:43→20:30)
[2018-04-27] MEDS: CHOLECALCIFEROL 1,000 UNIT TAB PO SCH (10:44)
[2018-04-27] MEDS: FERROUS SULFATE 325 MG TAB PO SCH (10:44)
[2018-04-27] MEDS: ASPIRIN 81 MG PO SCH (10:44)
[2018-04-27] MEDS: IOPAMIDOL-300 CONTRAST 30 ML VIAL (ORAL USE) PO PRN ×2 (15:16→16:25)
--- NOTE | 2018-04-27 16:11 | P.GSCN ---
History of Present Illness Consult date: 04/27/18 Reason for Consult: Partial small bowel obstruction History of present illness: This is a 73-year-old male was admitted to the hospital complaints of abdominal pain nausea. Patient had a x-ray performed yesterday which shows evidence of a partial small bowel structure. Patient states he feels quite distended. He denies any nausea or vomiting. Past Medical History Past Medical History: Cancer, Eye Disorder, Hyperlipidemia, Hypertension, Myocardial Infarction ([place]), Renal Disease, Sleep Apnea/CPAP/BIPAP Additional Past Medical History / Comment(s): Pt completed 1st round chemotherapy on 04/21/18 for squamous cell cancer-growth under L arm per pt, past hx squamous cell skin cancer with removals, 1997 renal transplant, anemia with iron therapy, 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-found on cat scan, CACHORRO with CPAP use, [place] x 2, limited vision d/t bilateral macular degeneration-gets eye injections, past gout bilateral feet Last Myocardial Infarction Date:: 2004 History of Any Multi-Drug Resistant Organisms: None Reported Past Surgical History: Coronary Bypass/CABG, Ear Surgery, Heart Catheterization With Stent, Hernia Repair, Joint Replacement Additional Past Surgical History / Comment(s): January 2018 growth under L arm biopsied, PCI with 3 stents, 1997 kidney transplant, 2004 CABG-3 vessels, multiple skin cancer removals and L ear incision dehisence/repaired, bilateral myringotomy/tubes, L total knee, colonoscopy, QUYNH, R inguinal hernia repair. Past Anesthesia/Blood Transfusion Reactions: No Reported Reaction Additional Past Anesthesia/Blood Transfusion Reaction / Comm: Pt has received blood without reaction. Date of Last Stent Placement:: unknown Smoking Status: Former smoker - Past Family History Father Family Medical History: Myocardial Infarction ([place]) Additional Family Medical History / Comment(s): Father of a [place] in his late 50s or early 60s. Mother Family Medical History: No Reported History Additional Family Medical History / Comment(s): Pt states mother was pretty healthy and lived into her 80s. Medications and Allergies Home Medications Medication Instructions Recorded Confirmed Type Doxazosin [Cardura] 2 mg PO DAILY 03/15/14 04/27/[address] [Myfortic] 540 mg PO BID 03/15/14 04/27/18 History Simvastatin [Zocor] 20 mg PO HS 03/15/14 04/27/18 History Albuterol Sulfate [Proair Hfa] 2 puff INHALATION RT-Q6H PRN 04/27/18 04/27/18 History Aspirin EC [Ecotrin Low Dose] 81 mg PO DAILY 04/27/18 04/27/18 History Budesonide/Formoterol Fumarate 2 puff INHALATION RT-BID 04/27/18 04/27/18 History [Symbicort 160-4.5 Mcg Inhaler] Cholecalciferol [Vitamin D3] 1,000 unit PO DAILY 04/27/18 04/27/18 History Ferrous Sulfate [Feosol] 325 mg PO DAILY 04/27/18 04/27/18 History HYDROcodone/APAP 10-325MG [Meacham 2 tab PO BID 04/27/18 04/27/18 History 10-325] Losartan Potassium [Cozaar] 25 mg PO DAILY 04/27/18 04/27/18 History Nausea Medicaine Unknown 1 tab PO Q6H PRN 04/27/18 04/27/18 History Rivaroxaban [Xarelto] 15 mg PO HS 04/27/18 04/27/18 History Tacrolimus [Prograf] 2 mg PO Q12H 04/27/18 04/27/18 History amLODIPine [Norvasc] 10 mg PO DAILY 04/27/18 04/27/18 History Allergies Allergy/AdvReac Type Severity Reaction Status Date / Time No Known Allergies Allergy Verified 04/27/18 07:28 Surgical - Exam Vital Signs Temp Pulse Resp BP Pulse Ox 98.6 F 92 18 128/81 96 04/27/18 05:26 04/27/18 05:26 04/27/18 05:26 04/27/18 05:26 04/27/18 05:26 - General well developed, no distress - Eyes PERRL - ENT normal pinna - Neck no masses - Respiratory normal expansion - Cardiovascular Rhythm: regular - Abdomen Abdomen is distended. It is quite firm. Abdomen: soft, non tender Results - Labs 04/27/18 05:50 04/27/18 05:50 Abnormal Lab Results - Last 24 Hours (Table) 04/27/18 04/27/18 Range/Units 05:50 05:50 RBC 3.78 L (4.30-5.90) m/uL Hgb 11.1 L (13.0-17.5) gm/dL Hct 35.7 L (39.0-53.0) % Lymphocytes # 0.8 L (1.0-4.8) k/uL Sodium 135 L (137-145) mmol/L Chloride 97 L (98-107) mmol/L Carbon Dioxide 20 L (22-30) mmol/L BUN 68 H (9-20) mg/dL Creatinine 1.70 H (0.66-1.25) mg/dL Glucose 139 H (74-99) mg/dL ALT 75 H (21-72) U/L Lipase <10 L (23-300) U/L Diabetes panel 04/27/18 Range/Units 05:50 Sodium 135 L (137-145) mmol/L Potassium 4.5 (3.5-5.1) mmol/L Chloride 97 L (98-107) mmol/L Carbon Dioxide 20 L (22-30) mmol/L BUN 68 H (9-20) mg/dL Creatinine 1.70 H (0.66-1.25) mg/dL Glucose 139 H (74-99) mg/dL Calcium 9.0 (8.4-10.2) mg/dL AST 45 (17-59) U/L ALT 75 H (21-72) U/L Alkaline Phosphatase 93 (38-126) U/L Total Protein 6.6 (6.3-8.2) g/dL Albumin 3.8 (3.5-5.0) g/dL Calcium panel 04/27/18 Range/Units 05:50 Calcium 9.0 (8.4-10.2) mg/dL Albumin 3.8 (3.5-5.0) g/dL Pituitary panel 04/27/18 Range/Units 05:50 Sodium 135 L (137-145) mmol/L Potassium 4.5 (3.5-5.1) mmol/L Chloride 97 L (98-107) mmol/L Carbon Dioxide 20 L (22-30) mmol/L BUN 68 H (9-20) mg/dL Creatinine 1.70 H (0.66-1.25) mg/dL Glucose 139 H (74-99) mg/dL Calcium 9.0 (8.4-10.2) mg/dL Adrenal panel 04/27/18 Range/Units 05:50 Sodium 135 L (137-145) mmol/L Potassium 4.5 (3.5-5.1) mmol/L Chloride 97 L (98-107) mmol/L Carbon Dioxide 20 L (22-30) mmol/L BUN 68 H (9-20) mg/dL Creatinine 1.70 H (0.66-1.25) mg/dL Glucose 139 H (74-99) mg/dL Calcium 9.0 (8.4-10.2) mg/dL Total Bilirubin 1.0 (0.2-1.3) mg/dL AST 45 (17-59) U/L ALT 75 H (21-72) U/L Alkaline Phosphatase 93 (38-126) U/L Total Protein 6.6 (6.3-8.2) g/dL Albumin 3.8 (3.5-5.0) g/dL - Imaging Abdominal x-ray: report reviewed (Ileus versus partial small bowel obstruction) Assessment and Plan Assessment: Partial small bowel obstruction. Patient's abdomen is quite firm and distended. He'll undergo computed tomography scan of the abdomen with oral contrast today.
--- NOTE | 2018-04-27 17:35 | CT ---
EXAMINATION TYPE: CT abdomen pelvis wo con DATE OF EXAM: 04/27/2018 COMPARISON: 04/25/2018 HISTORY: Partial small bowel obstruction, abdominal pain. CT DLP: 1131 mGycm Automated exposure control for dose reduction was used. TECHNIQUE: Helical acquisition of images was performed from the lung bases through the pelvis. FINDINGS: There is patchy linear density at the lung bases and more on the left side consistent with scarring a nd atelectasis. There is no pleural effusion. Heart is enlarged. Liver shows no focal defect. Spleen appears normal. There is no pancreatic mass. There is advanced bi lateral renal atrophy. Abdominal aorta is atheromatous. There is 4 cm aneurysm of the mid abdominal a liana. There is mild aneurysm of common iliac arteries. Proximal small bowel measures 2.5 cm. There is left side transplant kidney. Urinary bladder is dilated and measures almost 15 cm. There is some fecal material in the proximal sigmoid colon. There is a markedly dilated right colon a nd transverse colon and descending colon with fluid levels. The cecum measures more than 12 cm. Dista l small bowel appears to be dilated with fluid levels. I see no evidence of free air. There are spond ylotic changes in the lumbar spine. IMPRESSION: MARKEDLY DILATED FLUID-FILLED LARGE BOWEL DOWN TO THE PROXIMAL SIGMOID COLON. LARGE BOWEL IS MORE DIL ATED THAN LAST EXAM OF 04/25/2018. THIS IS CONSISTENT WITH ILEUS. NO DEFINITE COLONIC STRICTURE IDENTI FIED. THERE IS DECREASED FECAL MATERIAL IN THE LARGE BOWEL TO SOME EXTENT COMPARED TO LAST EXAM. DIST AL SMALL BOWEL APPEARS MORE DILATED THAN LAST EXAM AND CONSISTENT WITH PARTIAL MECHANICAL OBSTRUCTION OR ILEUS. Abdominal aortic aneurysm. There is increased atelectasis at the lung bases compared to last exam.
[2018-04-27] MEDS: SYMBICORT 160-4.5 MCG INHALER INHALATION SCH (20:51)
[2018-04-27] MEDS ORDERED: ATORVASTATIN 10 MG TAB PO SCH (21:00)
[2018-04-27] MEDS ORDERED: RIVAROXABAN 15 MG TAB PO SCH (21:00)
[2018-04-27 21:27] LABS: Glucose,Whole Blood 125 mg/dL (75-99)
[2018-04-27 22:51] LABS: Amorphous Sediment,Urine Rare /hpf; Appearance,Urine Clear (Clear); Bilirubin,Urine Negative (Negative); Blood,Urine Trace (Negative); Color,Urine Yellow; Glucose,Urine (UA) Negative (Negative); Ketones,Urine Negative (Negative); Leukocyte Esterase,Urine Negative (Negative); Mucus,Urine Rare /hpf; Nitrite,Urine Negative (Negative); Protein,Urine 1+ (Negative); RBC,Urine 20 /hpf (0-5); Specific Gravity,Urine 1.014 (1.001-1.035); Squamous Epithelial Cell,Urine 7 /hpf (0-4); Urobilinogen,Urine <2.0 mg/dL (<2.0); WBC,Urine 1 /hpf (0-5)
[2018-04-28 00:13] LABS: Glucose,Whole Blood 121 mg/dL (75-99)
[2018-04-28 00:16] LABS: ABG Base Excess -6.5 mmol/L; ABG HCO3 18 mmol/L (21-25); ABG Oxygen Saturation 93.1 % (94-97); ABG PCO2 26 mmHg (35-45); ABG PH 7.44 (7.35-7.45); ABG PO2 68 mmHg (83-108); ABG TCO2 18 mmol/L (19-24)
[2018-04-28 00:48] LABS: HCT 28.8 % (39.0-53.0); Hypochromasia Slight; MCHC 30.5 g/dL (31.0-37.0); MCV 95.2 fL (80.0-100.0); Mean Platelet Volume 8.6; Platelet Count 141 k/uL (150-450); RBC 3.02 m/uL (4.30-5.90); RDW 15.5 % (11.5-15.5); WBC 2.2 k/uL (3.8-10.6)
[2018-04-28 00:49] LABS: Albumin 2.7 g/dL (3.5-5.0); Magnesium 2.6 mg/dL (1.6-2.3); Potassium 5.4 mmol/L (3.5-5.1); Total Bilirubin 0.9 mg/dL (0.2-1.3)
[2018-04-28 00:50] LABS: HGB 8.8 gm/dL (13.0-17.5)
[2018-04-28 01:12] LABS: Band Neutrophils % 5 %; Monocytes # (M) 0.07 k/uL (0-1.0); Neutrophils % (M) 42 %; Nucleated Red Blood Cells 0 /100 WBC (0-0); Total Cells Counted 100
[2018-04-28 01:14] LABS: Poikilocytosis (M) Present
[2018-04-28 01:53] LABS: Appearance,Urine Cloudy (Clear); Bilirubin,Urine 1+ (Negative); Blood,Urine Moderate (Negative); Color,Urine Dark Yellow; Glucose,Urine (UA) Negative (Negative); Ketones,Urine Negative (Negative); Leukocyte Esterase,Urine Negative (Negative); Mucus,Urine Rare /hpf; Nitrite,Urine Negative (Negative); Protein,Urine 1+ (Negative); RBC,Urine 17 /hpf (0-5); Specific Gravity,Urine 1.017 (1.001-1.035); Squamous Epithelial Cell,Urine <1 /hpf (0-4); WBC,Urine 5 /hpf (0-5)
[2018-04-28] MEDS: SODIUM CHLORIDE 0.9% 1,000 ML IV SCH ×10 (02:19→18:30)
[2018-04-28] MEDS: NOREPINEPHRIN 4 MG-0.9% NS PMX 4 MG/250 ML ML IV SCH ×4 (02:48→11:29)
[2018-04-28] MEDS ORDERED: ACETAMINOPHEN IV (For NPO) 1,000 MG in EMPTY BAG 1 BAG IVPB PRN (03:23)
[2018-04-28 05:09] LABS: Basophils % (A) 0 %; Eosinophils % (A) 0 %; HCT 26.7 % (39.0-53.0); HGB 8.2 gm/dL (13.0-17.5); Hypochromasia Slight; Lymphocytes # (A) 0.5 k/uL (1.0-4.8); Lymphocytes % (A) 42 %; MCH 29.1 pg (25.0-35.0); MCHC 30.6 g/dL (31.0-37.0); MCV 95.2 fL (80.0-100.0); Mean Platelet Volume 8.9; Monocytes # (A) 0.1 k/uL (0-1.0); Monocytes % (A) 5 %; Neutrophils # (A) 0.6 k/uL (1.3-7.7); Neutrophils % (A) 50 %; Platelet Count 115 k/uL (150-450); RDW 15.1 % (11.5-15.5)
[2018-04-28 05:12] LABS: WBC 1.2 k/uL (3.8-10.6)
[2018-04-28 05:16] LABS: Calcium 7.1 mg/dL (8.4-10.2); Magnesium 2.5 mg/dL (1.6-2.3); Phosphorus 6.6 mg/dL (2.5-4.5); Potassium 4.9 mmol/L (3.5-5.1)
[2018-04-28 05:23] LABS: ABG Base Excess -7.9 mmol/L; ABG HCO3 16 mmol/L (21-25); ABG Oxygen Saturation 94.3 % (94-97); ABG PCO2 24 mmHg (35-45); ABG PH 7.44 (7.35-7.45); ABG PO2 73 mmHg (83-108); ABG TCO2 17 mmol/L (19-24)
--- NOTE | 2018-04-28 05:37 | XR ---
EXAM: XR Abdomen, 2 Views CLINICAL HISTORY: ITS.REASON XR Reason: bowel obstruction with possible perf. TECHNIQUE: Frontal view of the abdomen/pelvis with upright view of the abdomen. COMPARISON: CT scan 04/27/18 FINDINGS: Lower thorax: Left basilar airspace disease. Intraperitoneal space: No definitive free air seen on upright imaging, though limited at the left hemithorax due to airspace disease. Anti-- dependent air on decubitus imaging is likely within a bowel loop. Prominent small bowel dilation noted to caliber 4.3, possibly larger within the rightward abdomen. Gastrointestinal tract: As above Bones/joints: Multilevel degenerative disc disease with prominent disc osteophytes. IMPRESSION: 1. No definitive free air is identified though visualization is limited under the left hemithorax due to airspace disease. There is anti- dependent air on decubitus imaging, though this appears to be within a bowel loop. Repeat CT scan can be considered to exclude free air if needed. 2. Persistent small bowel dilation with known obstruction.
--- NOTE | 2018-04-28 05:40 | XR ---
ADDENDUM - Added by Gil Rosenthal MD on 04/28/2018 6:21 AM (-07:00) Addition to report: There is a tubular structure overlying the mediastinum, curled at the distal esophagus level and tip oriented cephalad just above the clavicular head level. If this is an orogastric tube, this should be repositioned. EXAM: XR Chest, 1 View CLINICAL HISTORY: ITS.REASON XR Reason: shortness of breath TECHNIQUE: Frontal view of the chest. COMPARISON: 04/27/18 FINDINGS: Lungs: Left basilar airspace disease. Stable right upper lobe pulmonary nodule, likely granuloma. Pleural space: Blunting of the left costophrenic sulcus. No pneumothorax. Heart: Cardiomegaly, stable. Mediastinum: Unremarkable. Bones/joints: Sternotomy wires. Vasculature: Atherosclerosis. IMPRESSION: 1. Left lower lobe airspace disease which may represent dense atelectasis or infiltrate. There is also possibly a new small left pleural effusion. 2. Otherwise unchanged. [employer] 04/28/18 06:32 Verify Receipt with Nurse Verified receipt with ICU nurse Migue Hale on 04/28 06:32 (-04:00)
[2018-04-28] MEDS ORDERED: LORazepam 2 MG/ML INJ IV PRN (06:58)
[2018-04-28] MEDS: ALBUTEROL NEBULIZED 2.5 MG/3 ML INHALATION PRN ×2 (07:40→15:15)
[2018-04-28] MEDS: SYMBICORT 160-4.5 MCG INHALER INHALATION SCH (07:40)
--- NOTE | 2018-04-28 08:30 | XR ---
EXAMINATION TYPE: XR chest 1V portable DATE OF EXAM: 04/28/2018 COMPARISON: Prior chest x-ray 04/28/2018 and earlier time HISTORY: NG tube placement TECHNIQUE: Single frontal view of the chest is obtained. FINDINGS: There is been interval repositioning of the NG tube which is coursing towards the stomach, the distal tip not included on the exam. There is a loop present within the neck. No other significa nt interval change. IMPRESSION: Interval repositioning of the NG tube which appears looped in the neck.
[2018-04-28] MEDS: PIPERACILLIN-TAZOBACTAM 3.375 GM in DEXTROSE/WATER 1 50ML.BAG IVPB SCH ×3 (08:51→23:25)
[2018-04-28] MEDS: metroNIDAZOLE-NS PMX 500 MG in SALINE 1 100ML.BAG IVPB SCH ×3 (08:51→23:24)
[2018-04-28] MEDS: PANTOPRAZOLE 40 MG/10 ML VIAL IV SCH (08:54)
[2018-04-28] MEDS ORDERED: Kcentra PER PHARMACY 1 EACH MISC MISCELLANE PRN (09:02)
--- NOTE | 2018-04-28 09:28 | P.PN ---
Progress Note - Text Progress Note Date: 04/28/18 The patient was transferred to the ICU last night. Apparently the notify Dr. Andrew Clements. I was not notified until about 8:30 this morning. The patient's clinical exam is changed. His diffuse abdominal pain. His chest x- ray performed this morning suspicious for free air. On exam her vital signs are stable. His abdomen is distended and firm with peritoneal signs. I discussed patient he will need emergent exploration. I'm concerned of possible bowel perforation and obstruction. The patient is extremely high risk due to his recent chemotherapy and kidney transplant. I discussed these findings patient's . He reported for emergent exploratory laparotomy this morning.
[2018-04-28] MEDS ORDERED: HUMAN PROTHROMBIN COMPLX IV ONE ×2 (09:30→09:45)
[2018-04-28] MEDS ORDERED: CISATRACURIUM 2 MG/ML 5 ML VIAL IV ONE (09:43)
[2018-04-28] MEDS ORDERED: HUMAN PROTHROMBIN COMPLX 500 UNIT/16 ML VIAL IV ONE (09:50)
[2018-04-28] MEDS: LOSARTAN 25 MG TAB PO SCH (09:54)
[2018-04-28] MEDS: DOXAZOSIN 2 MG TAB PO SCH (09:54)
[2018-04-28] MEDS: HYDROcodone/APAP 10-325MG 1 EACH TAB PO SCH (09:54)
[2018-04-28] MEDS: CHOLECALCIFEROL 1,000 UNIT TAB PO SCH (09:54)
[2018-04-28] MEDS: ASPIRIN 81 MG PO SCH (09:54)
[2018-04-28] MEDS: amLODIPine 10 MG TAB PO SCH (09:54)
[2018-04-28] MEDS: FERROUS SULFATE 325 MG TAB PO SCH (09:54)
[2018-04-28] MEDS: CISATRACURIUM 2 MG/ML 5 ML VIAL IV ONE ×2 (09:59→10:09)
[2018-04-28] MEDS ORDERED: PROPOFOL 100 ML IV ONE (09:59)
[2018-04-28] MEDS: PROPOFOL 1,000 MG in EMPTY BAG 1 BAG IV SCH ×2 (10:45→18:48)
[2018-04-28 10:49] LABS: ABG Base Excess -11.2 mmol/L; ABG HCO3 16 mmol/L (21-25); ABG Oxygen Saturation 97.9 % (94-97); ABG PCO2 39 mmHg (35-45); ABG PH 7.23 (7.35-7.45); ABG PO2 160 mmHg (83-108); ABG TCO2 18 mmol/L (19-24)
[2018-04-28 10:54] LABS: INR 1.3 (<1.2); Partial Thromboplastin Time 30.9 sec (22.0-30.0); Prothrombin Time 11.9 sec (9.0-12.0)
[2018-04-28] MEDS ORDERED: SODIUM CHLORIDE 0.9% 1,000 ML IV SCH (11:00)
--- NOTE | 2018-04-28 11:11 | XR ---
EXAMINATION TYPE: XR chest 1V confirm line [facility] DATE OF EXAM: 04/28/2018 COMPARISON: 04/28/2018 HISTORY: Endotracheal tube placement and central line placement. TECHNIQUE: Single frontal view of the chest is obtained. FINDINGS: Endotracheal tube terminates at the level of the aortic arch, appropriately placed. Left-s ided internal jugular central venous catheter terminates near the cavoatrial junction and also appear s appropriately placed. No postprocedural pneumothorax is identified. Heart is again enlarged with po st CABG changes. Enteric tube has been retracted in the interim with its fenestrated portion appearin g just beyond the gastroesophageal junction. There is obscuration of the left hemidiaphragm and right basilar atelectasis. IMPRESSION: 1. Interval placement of an appropriately placed left internal jugular central venous catheter and en dotracheal tube. Enteric tube has been retracted in the interim with its posterior portion just be on the gastroesophageal junction. 2. Bibasilar opacities that may represent atelectasis or pneumonia.
[2018-04-28] MEDS ORDERED: SODIUM BICARB 8.4% 50 ML SYR (1 MEQ/ML) IV STA (11:16)
[2018-04-28] MEDS: DEXTROSE 5% IN WATER 1,000 ML with SODIUM BICARB (1 MEQ/ML) 150 ML IV SCH (11:48)
[2018-04-28] MEDS ORDERED: PHENYLEPHRINE-0.9% NACL SYG 1 MG/10 ML SYRINGE ONE (12:28)
[2018-04-28] MEDS ORDERED: SODIUM CHLORIDE 0.9% 1,000 ML IV ONE (12:28)
[2018-04-28] MEDS ORDERED: VECURONIUM 10 MG VIAL IV ONE (12:28)
[2018-04-28] MEDS ORDERED: SODIUM BICARB 8.4% 50 ML SYR (1 MEQ/ML) ONE (12:28)
[2018-04-28] MEDS ORDERED: fentaNYL (PF) 50 MCG/ML 2 ML AMP ONE (12:28)
--- NOTE | 2018-04-28 13:15 | CONS ---
CONSULTATION Patient is a 73-year-old male with history of donor allograft in July of 1998 at the [facility]. The patient had CKD stage III with his baseline creatinine about 1.2 to 1.4 mg/dL recently. He was diagnosed with squamous cell cancer and started on chemotherapy recently. The patient had his first chemo about 1 week ago. He was admitted to the hospital with abdominal pain. He was found to have free air. He deteriorated on the regular medical floor and was transferred to the ICU yesterday. The patient is currently hypotensive requiring 30 mcg of Levophed. He will be taken to the OR. His creatinine is 2.5 mg/dL, which it went up from 1.7 from yesterday. The patient's white count is low at 1.2. He is on empiric antibiotics as well. PAST MEDICAL HISTORY: CKD stage III with baseline creatinine about 1.3 mg/dL, history of A. Fib, BPH, coronary artery disease, hypertension, iron deficiency anemia, cancer started chemotherapy a few days ago. PAST SURGICAL HISTORY: Coronary artery bypass surgery, cardiac catheterization, coronary stent placement, hernia repair, renal transplant in 1997. MEDICATIONS: Medications at home prior to admission included amlodipine, Zocor, Niacin, Myfortic, Cardura, cyclosporine, aspirin. PHYSICAL EXAMINATION: On examination, patient is currently awake. He is comfortable. He is not in any acute distress. He is complaining of abdominal pain. Blood pressure is low at 91/61, heart rate 84 per minute. Patient is afebrile. EXAMINATION OF THE HEART: S1, S2. EXAMINATION OF THE LUNGS: Bilateral breath sounds are heard. Decreased breath sounds at bases. Abdomen is soft, distended, and tender. Examination of the lower extremities shows trace edema bilaterally. PANMAN exam is grossly intact. Patient moving all 4 extremities. The patient has a lump in his left axilla. LAB: Labs show sodium 132, potassium 4.9, chloride 100, CO2 of 16, BUN 94, serum creatinine 2.5. Lactic acid 2.9. UA shows 1+ protein, 1+ bilirubin, and WBCs 5. ASSESSMENT: 1. Acute kidney injury secondary to hypotension and hypoperfusion, currently nonoliguric. 2. Chronic kidney disease stage III, baseline creatinine about 1.3 secondary to chronic allograft nephropathy. 3. Status post donor transplant in 1997, maintained on Prograf and CellCept. At this time, I will continue to hold off on the immunosuppression. Once the patient has a NG tube, we can restart with some degree of immunosuppression likely with the CellCept and hold off on the Prograf if he remains in septic shock. 4. Septic shock, maintained on empiric antibiotics. 5. Acute abdomen with free air noted. The patient is going to be taken to the OR. 6. Squamous cell cancer, recently started chemotherapy. PLAN: Continue aggressive IV hydration. We can resume immunosuppression depending upon his hemodynamic status over the next 2 to 3 days. I will hold off on the immunosuppression for now given the severe sepsis. We can start phosphate binders once the patient is using his gut if his phosphorus remains elevated. Thank you for this consultation. We will continue to follow the patient with you during his hospitalization. MMJAELYN / SHANTELLE: [id number] /
[2018-04-28 13:19] LABS: ABG Base Excess -13.2 mmol/L; ABG HCO3 13 mmol/L (21-25); ABG Oxygen Saturation 97.7 % (94-97); ABG PCO2 33 mmHg (35-45); ABG PH 7.22 (7.35-7.45); ABG PO2 201 mmHg (83-108)
[2018-04-28 13:55] LABS: ABG Base Excess -4.6 mmol/L; ABG HCO3 20 mmol/L (21-25); ABG Oxygen Saturation 98.4 % (94-97); ABG PCO2 35 mmHg (35-45); ABG PH 7.37 (7.35-7.45); ABG PO2 244 mmHg (83-108)
[2018-04-28 14:00] LABS: HCT 25.3 % (39.0-53.0); MCH 29.2 pg (25.0-35.0); MCHC 31.7 g/dL (31.0-37.0); Mean Platelet Volume 9.1; RBC 2.75 m/uL (4.30-5.90); RDW 15.5 % (11.5-15.5)
--- NOTE | 2018-04-28 14:01 | P.OP ---
Date of Procedure: 04/28/18 Preoperative Diagnosis: Acute abdomen Bowel obstruction Postoperative Diagnosis: Toxic megacolon Sigmoid colon obstruction secondary to stool Procedure(s) Performed: Exploratory laparotomy subtotal colectomy ileostomy Anesthesia: PAZ Surgeon: Viral Hayden Estimated Blood Loss (ml): 226 Pathology: other (Abdominal colon) Disposition: ICU Description of Procedure: The patient's placed in the operative table in the supine position. He received general anesthesia. Patient was prepped and draped usual sterile fashion. The abdomen was very distended. Midline incision was made and approximately 200 mL of ascites was aspirated. The ascites was blood-tinged. The colon was massively dilated. The incision was lengthened and there appeared to be normal caliber distal sigmoid colon. There appeared to be a stool impaction proximal sigmoid colon at this point the colon was transected at the distal sigmoid colon. The cecum was then examined. Initially the cecum measured approximately 20 cm diameter. There are serosal tears on the cecum. Cecum was reflected medially and there was patchy necrosis seen in the cecum. At this point decided perform a subtotal colectomy. The right colon was mobilized medially and the left colon was mobilized medially. Using LigaSure device the mesentery of the right colon was divided. Hepatic flexure taken down with the LigaSure device. The omentum was taken off the colon. And then the transverse colon mesentery was divided. With the LigaSure. The sigmoid colon had been previously transected. The white line of Toldt was divided in the left colon and then the mesentery of the left colon was divided with the LigaSure device. The splenic flexure was taken down using LigaSure device. The specimen was massive. It was placed in a container and sent to pathology. This point the abdomen was irrigated. There is no bleeding seen. A suitable spot for ileostomy brought out in the right lower quadrant. The fascia was closed with looped #1 PDS suture. Skin was closed basilio. The ileostomy was then matured using 3-0 Vicryl suture. Sterile dressings was applied. Patient was sent to the ICU on the ventilator in guarded condition.
[2018-04-28 14:14] LABS: Platelet Count 94 k/uL (150-450)
[2018-04-28 14:16] LABS: WBC 1.2 k/uL (3.8-10.6)
[2018-04-28 14:49] LABS: Band Neutrophils % 2 %; Lymphocytes # (M) 0.43 k/uL (1.0-4.8); Monocytes # (M) 0.07 k/uL (0-1.0); Neutrophils % (M) 56 %; Nucleated Red Blood Cells 0 /100 WBC (0-0); Polychromasia Present; Total Cells Counted 100
[2018-04-28] MEDS ORDERED: SODIUM CHLORIDE 0.9% 2,000 ML IV ONE (15:18)
--- NOTE | 2018-04-28 17:14 | P.CNPUL ---
History of Present Illness Consult date: 04/28/18 Reason for consult: dyspnea, cough, hypoxemia Chief complaint: Hypertension, hypoxemia/impending respiratory failure History of present illness: 73-year-old male well-known to me patient has been admitted into the hospital with abdominal discomfort and pain and severe constipation symptoms started about 4-5 days ago patient has similar episode about 3 days ago was presented into the emergency department and was evaluated subsequently discharged and came back again with coffee-ground emesis constipation abdominal discomfort and pain of crampiness, this patient was initially initially admitted on the medical floor where he developed problems with hypotension and was transferred to the ICU patient was resuscitated with fluid with continuation of the hypertension also in the interim found to have a worsening of abdominal discomfort and pain, patient has been given crystalloids and eventually was started on vasopressors. During my evaluation patient was tachypneic tachycardic respiratory rate as well as mid 30s heart rate was 100 210 patient continued to complain of abdominal discomfort and pain he is been on 15 L high flow oxygen with saturation in low 90s and has very ill-looking appearance decision was made to intubate patient electively for airway protection also notify surgical service for evaluation with a repeat computed tomography scan of the abdominal and pelvis and compared with the one performed yesterday. This patient is well-known to me for the lump found on the left axilla eventually with a diagnosis of squamous cell cancer of unknown etiology or unknown primary patient has been currently on chemotherapy by Dr. Velásquez, patient also has probable problems with chronic atrial fibrillation and congestive heart failure and history of renal transplant and has been on immunosuppressive agent Laboratory data radiographic studies reviewed care plan discussed with oncology service as well Review of Systems All systems: negative Past Medical History Past Medical History: Cancer, Eye Disorder, Hyperlipidemia, Hypertension, Myocardial Infarction ([place]), Renal Disease, Sleep Apnea/CPAP/BIPAP Additional Past Medical History / Comment(s): Pt completed 1st round chemotherapy on 04/21/18 for squamous cell cancer-growth under L arm per pt, past hx squamous cell skin cancer with removals, 1997 renal transplant, anemia with iron therapy, 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-found on cat scan, CACHORRO with CPAP use, [place] x 2, limited vision d/t bilateral macular degeneration-gets eye injections, past gout bilateral feet Last Myocardial Infarction Date:: 2004 History of Any Multi-Drug Resistant Organisms: None Reported Past Surgical History: Coronary Bypass/CABG, Ear Surgery, Heart Catheterization With Stent, Hernia Repair, Joint Replacement Additional Past Surgical History / Comment(s): January 2018 growth under L arm biopsied, PCI with 3 stents, 1997 kidney transplant, 2004 CABG-3 vessels, multiple skin cancer removals and L ear incision dehisence/repaired, bilateral myringotomy/tubes, L total knee, colonoscopy, QUYNH, R inguinal hernia repair. Past Anesthesia/Blood Transfusion Reactions: No Reported Reaction Additional Past Anesthesia/Blood Transfusion Reaction / Comment(s): Pt has received blood without reaction. Date of Last Stent Placement:: unknown Smoking Status: Former smoker - Past Family History Father Family Medical History: Myocardial Infarction ([place]) Additional Family Medical History / Comment(s): Father of a [place] in his late 50s or early 60s. Mother Family Medical History: No Reported History Additional Family Medical History / Comment(s): Pt states mother was pretty healthy and lived into her 80s. Medications and Allergies Home Medications Medication Instructions Recorded Confirmed Type Doxazosin [Cardura] 2 mg PO DAILY 03/15/14 04/27/[address] [Myfortic] 540 mg PO BID 03/15/14 04/27/18 History Simvastatin [Zocor] 20 mg PO HS 03/15/14 04/27/18 History Albuterol Sulfate [Proair Hfa] 2 puff INHALATION RT-Q6H PRN 04/27/18 04/27/18 History Aspirin EC [Ecotrin Low Dose] 81 mg PO DAILY 04/27/18 04/27/18 History Budesonide/Formoterol Fumarate 2 puff INHALATION RT-BID 04/27/18 04/27/18 History [Symbicort 160-4.5 Mcg Inhaler] Cholecalciferol [Vitamin D3] 1,000 unit PO DAILY 04/27/18 04/27/18 History Ferrous Sulfate [Feosol] 325 mg PO DAILY 04/27/18 04/27/18 History HYDROcodone/APAP 10-325MG [[place] 2 tab PO BID 04/27/18 04/27/18 History 10-325] Losartan Potassium [Cozaar] 25 mg PO DAILY 04/27/18 04/27/18 History Nausea Medicaine Unknown 1 tab PO Q6H PRN 04/27/18 04/27/18 History Rivaroxaban [Xarelto] 15 mg PO HS 04/27/18 04/27/18 History Tacrolimus [Prograf] 2 mg PO Q12H 04/27/18 04/27/18 History amLODIPine [Norvasc] 10 mg PO DAILY 04/27/18 04/27/18 History Allergies Allergy/AdvReac Type Severity Reaction Status Date / Time No Known Allergies Allergy Verified 04/27/18 07:28 Physical Exam Vitals: Vital Signs Temp Pulse Pulse Pulse Resp BP BP 04/28/18 16:15 80 27 H 101/64 04/28/18 16:00 98.1 F 75 22 101/64 04/28/18 15:54 80 04/28/18 15:45 79 22 04/28/18 15:30 78 22 04/28/18 15:18 83 04/28/18 15:15 79 22 04/28/18 15:00 79 22 04/28/18 14:45 83 22 118/71 04/28/18 14:30 22 149/84 04/28/18 14:28 22 140/75 04/28/18 12:00 98.8 F 82 22 100/60 04/28/18 11:32 98.9 F 89 22 103/66 04/28/18 11:30 84 22 91/61 04/28/18 11:00 96 22 98/58 04/28/18 10:30 82 22 99/69 04/28/18 10:00 80 22 107/64 04/28/18 09:30 91 31 H 123/71 04/28/18 09:00 84 25 H 116/63 04/28/18 08:30 87 20 107/66 04/28/18 08:00 97.6 F 83 14 111/62 04/28/18 07:53 77 04/28/18 07:44 73 04/28/18 07:30 84 22 106/64 04/28/18 07:00 81 4 L 92/62 04/28/18 06:30 86 8 L 04/28/18 06:00 99.9 F H 80 27 H 93/52 04/28/18 05:30 87 36 H 109/66 04/28/18 05:00 90 17 96/56 04/28/18 04:30 102 H 25 H 92/59 04/28/18 04:00 101.2 F H 92 27 H 95/56 04/28/18 03:30 90 23 62/40 04/28/18 03:00 84 18 04/28/18 02:30 85 24 98/55 04/28/18 02:00 92 24 94/57 04/28/18 01:30 88 12 99/62 04/28/18 00:20 81 81/54 04/28/18 00:10 81 73/50 04/28/18 00:00 86 28 H 82/51 04/27/18 23:50 99.2 F 80 30 H 63/41 04/27/18 23:15 04/27/18 22:10 121 H 36 H 04/27/18 22:05 34 H 04/27/18 22:00 98.0 F 92 36 H 04/27/18 21:01 90 04/27/18 20:51 89 04/27/18 20:47 89 32 H BP Pulse Ox 04/28/18 16:15 97 04/28/18 16:00 96 04/28/18 15:54 04/28/18 15:45 96 04/28/18 15:30 94 L 04/28/18 15:18 04/28/18 15:15 94 L 04/28/18 15:00 94 L 04/28/18 14:45 95 04/28/18 14:30 98 04/28/18 14:28 99 04/28/18 12:00 96 04/28/18 11:32 99 04/28/18 11:30 98 04/28/18 11:00 98 04/28/18 10:30 96 04/28/18 10:00 95 04/28/18 09:30 94 L 04/28/18 09:00 94 L 04/28/18 08:30 92 L 04/28/18 08:00 90 L 04/28/18 07:53 04/28/18 07:44 93 L 04/28/18 07:30 91 L 04/28/18 07:00 91 L 04/28/18 06:30 90 L 04/28/18 06:00 93 L 04/28/18 05:30 92 L 04/28/18 05:00 94 L 04/28/18 04:30 94 L 04/28/18 04:00 92 L 04/28/18 03:30 91 L 04/28/18 03:00 92 L 04/28/18 02:30 90 L 04/28/18 02:00 93 L 04/28/18 01:30 93 L 04/28/18 00:20 93 L 04/28/18 00:10 93 L 04/28/18 00:00 93 L 04/27/18 23:50 93 L 04/27/18 23:15 93 L 04/27/18 22:10 230/162 94 L 04/27/18 22:05 158/124 04/27/18 22:00 88/54 94 L 04/27/18 21:01 04/27/18 20:51 04/27/18 20:47 80/53 97 Intake and Output 04/28/18 04/28/18 04/28/18 06:59 14:59 22:59 Intake Total 2750.000 4795.462 478.87 Output Total 1070 935 33 Balance 0617.674 4837.462 445.87 Intake: IV 2500 3300 6 0.9 per pressure 6 ACETAMINOPHEN IV (For NPO 100 ) 1,000 mg In Empty Bag 1 bag @ 400 mls/hr IVPB Q6HR PRN Rx#:[id number] Sodium Chloride 0.9% 1, 400 000 ml @ 100 mls/hr IV . Q10H JENNA Rx#:[id number] Sodium Chloride 0.9% 1, 2000 2500 000 ml @ 500 mls/hr IV . Q2H JENNA Rx#:[id number] Intake, IV Titration 250.000 875.462 472.87 Amount Dextrose 5% in Water 1, 50 100 000 ml @ 50 mls/hr IV . Q23H JENNA with Sodium Bicarb (1 Meq/ml) 150 ml Rx#:[id number] Empty Bag 1 bag @ 3 UNIT/ 123.9 KG/MIN 434.3 mls/hr IV . Q18M ONE with Human Prothrombin Complx 3,872 unit Rx#:[id number] Norepinephrin 4 mg-0.9% 250.000 344.312 17.5 Ns Pmx 4 mg In 250 ml @ Titrate IV .Q0M JENNA Rx#: [id number] Piperacillin-Tazobactam 3 50 .375 gm In Dextrose/Water 1 50ml.bag @ 12.5 mls/hr IVPB Q8HR JENNA Rx#: [id number] Propofol 1,000 mg In 7.25 55.37 Empty Bag 1 bag @ Titrate IV .Q0M JENNA Rx#: [id number] Sodium Chloride 0.9% 1, 250 250 000 ml @ 250 mls/hr IV . Q4H JENNA Rx#:[id number] metroNIDAZOLE-NS PMX 500 100 mg In Saline 1 100ml.bag @ 100 mls/hr IVPB Q8HR JENNA Rx#:[id number] Blood Product 620 Rc As-1 Unit 310 [id number] Rc As-1 Unit 310 [id number] Output: Gastric Drainage 850 575 Urine 220 160 33 Estimated Blood Loss 200 Other: Voiding Method Indwelling Catheter Indwelling Catheter Weight 75.4 kg ABP, PAP, CO, CI - Last 8 Hours Arterial Blood Pressure 119/59 Arterial Blood Pressure 116/56 Arterial Blood Pressure 113/58 Arterial Blood Pressure 100/55 Arterial Blood Pressure 100/52 Arterial Blood Pressure 98/53 Arterial Blood Pressure 137/61 Arterial Blood Pressure 126/23 Arterial Blood Pressure 170/68 - Constitutional General appearance: average body habitus, disheveled, severe distress - EENT Eyes: PERRLA, poor dentition, normal appearance ENT: hard of hearing Ears: bilateral: normal - Neck Neck: normal ROM Carotids: bilateral: upstroke normal, bruit absent Thyroid: bilateral: normal size - Respiratory Respiratory: bilateral: CTA (With very poor air entry), diminished (Bilaterally few crackles are noted), negative: dullness, rales, rhonchi, wheezing - Cardiovascular Heart sounds: normal: S1, S2 - Gastrointestinal Diffuse distention with tenderness and hypoactive bowel sounds General gastrointestinal: absent bowel sounds, distended, tenderness - Integumentary Integumentary: decreased turgor - Neurologic Neurologic: CNII-XII intact - Musculoskeletal Musculoskeletal: gait normal, generalized weakness, strength equal bilaterally - Psychiatric Psychiatric: A&O x's 3, appropriate affect, intact judgment & insight Results - Laboratory Findings CBC and BMP: 04/28/18 13:40 04/28/18 04:42 ABG ABG pH 7.37 (7.35-7.45) 04/28/18 13:41 ABG pCO2 35 mmHg (35-45) 04/28/18 13:41 ABG pO2 244 mmHg (83-108) H 04/28/18 13:41 ABG O2 Saturation 98.4 % (94-97) H 04/28/18 13:41 PT/INR, D-dimer PT 11.9 sec (9.0-12.0) 04/28/18 10:35 INR 1.3 (<1.2) H 04/28/18 10:35 Abnormal lab findings: Abnormal Labs 04/27/18 04/27/18 04/27/18 05:50 05:50 21:25 WBC RBC 3.78 L Hgb 11.1 L Hct 35.7 L MCHC Plt Count Neutrophils # Neutrophils # (Manual) Lymphocytes # 0.8 L Lymphocytes # (Manual) INR APTT ABG pH ABG pCO2 ABG pO2 ABG HCO3 ABG Total CO2 ABG O2 Saturation Sodium 135 L Potassium Chloride 97 L Carbon Dioxide 20 L BUN 68 H Creatinine 1.70 H Glucose 139 H POC Glucose (mg/dL) 125 H Plasma Lactic Acid Papito Calcium Phosphorus Magnesium ALT 75 H Total Protein Albumin Lipase <10 L Urine Protein Urine Blood Urine Bilirubin Urine RBC Ur Squamous Epith Cells Amorphous Sediment Urine Mucus Crossmatch 04/27/18 04/27/18 04/28/18 21:40 23:38 00:10 WBC RBC Hgb Hct MCHC Plt Count Neutrophils # Neutrophils # (Manual) Lymphocytes # Lymphocytes # (Manual) INR APTT ABG pH ABG pCO2 26 L ABG pO2 68 L ABG HCO3 18 L ABG Total CO2 18 L ABG O2 Saturation 93.1 L Sodium Potassium Chloride Carbon Dioxide BUN Creatinine Glucose POC Glucose (mg/dL) 121 H Plasma Lactic Acid Papito Calcium Phosphorus Magnesium ALT Total Protein Albumin Lipase Urine Protein 1+ H Urine Blood Trace H Urine Bilirubin Urine RBC 20 H Ur Squamous Epith Cells 7 H Amorphous Sediment Rare H Urine Mucus Rare H Crossmatch 04/28/18 04/28/18 04/28/18 00:17 00:17 00:17 WBC 2.2 L RBC 3.02 L Hgb 8.8 L D Hct 28.8 L MCHC 30.5 L Plt Count 141 L Neutrophils # Neutrophils # (Manual) 1.00 L Lymphocytes # Lymphocytes # (Manual) INR APTT ABG pH ABG pCO2 ABG pO2 ABG HCO3 ABG Total CO2 ABG O2 Saturation Sodium 132 L Potassium 5.4 H Chloride Carbon Dioxide 18 L BUN 98 H* Creatinine 2.70 H Glucose 111 H POC Glucose (mg/dL) Plasma Lactic Acid Papito 2.8 H* Calcium 8.0 L Phosphorus 7.0 H Magnesium 2.6 H ALT 84 H Total Protein 5.0 L Albumin 2.7 L Lipase Urine Protein Urine Blood Urine Bilirubin Urine RBC Ur Squamous Epith Cells Amorphous Sediment Urine Mucus Crossmatch 04/28/18 04/28/18 04/28/18 01:30 04:42 04:42 WBC 1.2 L* RBC 2.80 L Hgb 8.2 L Hct 26.7 L MCHC 30.6 L Plt Count 115 L Neutrophils # 0.6 L Neutrophils # (Manual) Lymphocytes # 0.5 L Lymphocytes # (Manual) INR APTT ABG pH ABG pCO2 ABG pO2 ABG HCO3 ABG Total CO2 ABG O2 Saturation Sodium 132 L Potassium Chloride Carbon Dioxide 16 L BUN 94 H* Creatinine 2.50 H Glucose POC Glucose (mg/dL) Plasma Lactic Acid Papito Calcium 7.1 L Phosphorus 6.6 H Magnesium 2.5 H ALT Total Protein Albumin Lipase Urine Protein 1+ H Urine Blood Moderate H Urine Bilirubin 1+ H Urine RBC 17 H Ur Squamous Epith Cells Amorphous Sediment Urine Mucus Rare H Crossmatch 04/28/18 04/28/18 04/28/18 04:42 05:00 10:35 WBC RBC Hgb Hct MCHC Plt Count Neutrophils # Neutrophils # (Manual) Lymphocytes # Lymphocytes # (Manual) INR 1.3 H APTT 30.9 H ABG pH ABG pCO2 24 L ABG pO2 73 L ABG HCO3 16 L ABG Total CO2 17 L ABG O2 Saturation Sodium Potassium Chloride Carbon Dioxide BUN Creatinine Glucose POC Glucose (mg/dL) Plasma Lactic Acid Papito 2.9 H* Calcium Phosphorus Magnesium ALT Total Protein Albumin Lipase Urine Protein Urine Blood Urine Bilirubin Urine RBC Ur Squamous Epith Cells Amorphous Sediment Urine Mucus Crossmatch 04/28/18 04/28/18 04/28/18 10:47 11:35 13:05 WBC RBC Hgb Hct MCHC Plt Count Neutrophils # Neutrophils # (Manual) Lymphocytes # Lymphocytes # (Manual) INR APTT ABG pH 7.23 L 7.22 L ABG pCO2 33 L ABG pO2 160 H 201 H ABG HCO3 16 L 13 L ABG Total CO2 18 L ABG O2 Saturation 97.9 H 97.7 H Sodium Potassium Chloride Carbon Dioxide BUN Creatinine Glucose POC Glucose (mg/dL) Plasma Lactic Acid Papito Calcium Phosphorus Magnesium ALT Total Protein Albumin Lipase Urine Protein Urine Blood Urine Bilirubin Urine RBC Ur Squamous Epith Cells Amorphous Sediment Urine Mucus Crossmatch See Detail 04/28/18 04/28/18 13:40 13:41 WBC 1.2 L* RBC 2.75 L Hgb 8.0 L Hct 25.3 L MCHC Plt Count 94 L Neutrophils # Neutrophils # (Manual) 0.60 L Lymphocytes # Lymphocytes # (Manual) 0.43 L INR APTT ABG pH ABG pCO2 ABG pO2 244 H ABG HCO3 20 L ABG Total CO2 ABG O2 Saturation 98.4 H Sodium Potassium Chloride Carbon Dioxide BUN Creatinine Glucose POC Glucose (mg/dL) Plasma Lactic Acid Papito Calcium Phosphorus Magnesium ALT Total Protein Albumin Lipase Urine Protein Urine Blood Urine Bilirubin Urine RBC Ur Squamous Epith Cells Amorphous Sediment Urine Mucus Crossmatch - Diagnostic Findings Chest x-ray: report reviewed, image reviewed (Chest x-ray and abdominal CAT scan reviewed) Assessment and Plan Assessment: Acute bowel obstruction with sepsis and septic shock Suspect secondary peritonitis related to bowel obstruction Bowel perforation less likely Acute hypoxic respirator failure related to acute lung injury related to overwhelming sepsis and septic shock Squamous cell cancer of unknown primary Hemetemesis and upper GI bleed Chronic atrial fibrillation on anticoagulation Chronic renal failure is stage 2-3 with history of renal transplant and being on immunosuppressive agent Plan: Aggressive fluid resuscitation Broad-spectrum antibiotics Bicarb drip Central line A-line Intubation for airway protection and respiratory support Surgery to evaluate pressure patient further for exploratory laparotomy Further recommendations pending plan of care as per clinical response of the patient Protonix IV Time with Patient: Greater than 30
[2018-04-28] MEDS: MORPHINE SULFATE 2 MG/ML SYRINGE IV PRN (17:15)
--- NOTE | 2018-04-28 17:17 | P.PCN ---
Date of Procedure: 04/28/18 Preoperative Diagnosis: Severe sepsis and septic shock, bowel obstruction, acute respirator failure Postoperative Diagnosis: As above Procedure(s) Performed: Endotracheal tube insertion Surgeon: Lyle Gordon Condition: critical Disposition: ICU Indications for Procedure: As above Operative Findings: As below Description of Procedure: Direct laryngoscopy was performed with #4 Luis blade, 8-Kazakh endotracheal tube passed without any difficulty through the vocal cords old clotted blood were seen which was suctioned and cleaned prior to the insertion of tube secured at 22 cm guillaume positive end-tidal CO2 good bilateral breath sounds chest x-ray pending
--- NOTE | 2018-04-28 17:18 | P.PCN ---
Date of Procedure: 04/28/18 Preoperative Diagnosis: Severe sepsis and septic shock, acute hypoxic respirator failure, acute bowel obstruction Postoperative Diagnosis: As above Procedure(s) Performed: Left-sided triple-lumen catheter insertion at left internal jugular vein via anterior approach Surgeon: Lyle Ali Condition: critical Disposition: ICU Indications for Procedure: As above Operative Findings: As below Description of Procedure: Using a modified Seldinger technique triple-lumen catheter inserted into the left internal jugular vein via anterior approach patient tolerated procedure well no complication noted chest x-ray pending
--- NOTE | 2018-04-28 17:20 | P.PCN ---
Date of Procedure: 04/28/18 Preoperative Diagnosis: Severe sepsis and septic shock, acute bowel obstruction, acute hypoxic respiratory failure Postoperative Diagnosis: As above Procedure(s) Performed: Right radial A-line placement Anesthesia: local Surgeon: Lyle Ali Condition: critical Disposition: ICU Indications for Procedure: As above Operative Findings: As below Description of Procedure: Patient prepared and draped in a usual fashion very feeble wilda was present at radial artery area, was able to get access into the artery but unable to pass the guidewire blood gas for ABG obtained hemostasis achieved
[2018-04-28] MEDS: NOREPINEPHRIN 16 MG-0.9%NS PMX 16 MG/250 ML ML IV SCH ×2 (17:54→23:15)
[2018-04-28 18:04] LABS: HCT 25.3 % (39.0-53.0); HGB 8.2 gm/dL (13.0-17.5); Hypochromasia Slight; MCH 29.9 pg (25.0-35.0); MCHC 32.3 g/dL (31.0-37.0); MCV 92.4 fL (80.0-100.0); RBC 2.74 m/uL (4.30-5.90); RDW 15.9 % (11.5-15.5)
[2018-04-28 18:12] LABS: Albumin 1.6 g/dL (3.5-5.0); Platelet Count 80 k/uL (150-450); Potassium 4.4 mmol/L (3.5-5.1); Total Bilirubin 0.8 mg/dL (0.2-1.3); Total Protein 3.2 g/dL (6.3-8.2)
[2018-04-28 18:15] LABS: Calcium 5.6 mg/dL (8.4-10.2)
[2018-04-28] MEDS ORDERED: CALCIUM CHLORIDE 2,000 MG in SODIUM CHLORIDE 0.9% 100 ML IVPB STA (18:25)
[2018-04-28 19:21] LABS: Band Neutrophils % 3 %; Lymphocytes # (M) 0.27 k/uL (1.0-4.8); Metamyelocytes # (M) 0.02 k/uL (0); Metamyelocytes % 2 %; Neutrophils % (M) 58 %; Nucleated Red Blood Cells 0 /100 WBC (0-0); Polychromasia Present; Total Cells Counted 100
--- NOTE | 2018-04-28 20:07 | P.CONS ---
History of Present Illness - Reason for Consult Consult date: 04/28/18 On chemotherapy for locally advanced carcinoma Requesting physician: Paulina العلي - Chief Complaint Abdominal Distention and nausea and vomiting - History of Present Illness Mr Galvan is a pleasant white male, with multiple medical problems, including a history of end-stage renal disease status post cadaveric renal transplant in 1997. The patient presented with a mass in the left armpit, associated with pain radiating down the left arm. He had first noted this sometime in the early part of 01/30. He sought attention with his primary care physician, Dr. Ibanez, and was referred for core biopsy of the left axilla. This was positive for squamous cell carcinoma. It could not be determined based on staining pattern, if this was a primary or metastatic lesion. He 16 was strongly positive suggesting possibility of head and neck origin the other sites could not be ruled out. The case was discussed with Dr. Ibanez, and the patient referred here. Based on our discussion, a PET scan was performed on 02/15/18. This showed a ring-enhancing lesion in the left axilla at the site of the known mass with an SUV of 9.15. Focal areas of uptake were seen in the pretracheal space with SUV varying between 2.2-5.6. The patient has a history of multiple skin cancers removed from the face and head. The most prominent lesion was removed from the left cheek between 2-3 years prior to his first visit here, and required radiation. Most recent was a superficial one removed from the scalp in late 2016. Biopsy of axilla revealed squamous cell carcinoma with strong P16. He started on chemotherapy with carboplatin and taxol on 04/21/18. Approximately two days after chemotherapy he states he had pain and started to note his abdomen swelling. It progressed and he was not moving bowels (Last BM Wednesday). He was brought to Emergency room and evaluated for free air in abdomen. His at bedside and patient is currently stable in ICU, they are planning on surgical intervention with ex lap for the concern of perforation. His abddomen is tender firm and distended. Review of Systems A 14 point review of systems assessed and completed and all negative except HPI Past Medical History Past Medical History: Cancer, Eye Disorder, Hyperlipidemia, Hypertension, Myocardial Infarction (ND), Renal Disease, Sleep Apnea/CPAP/BIPAP Additional Past Medical History / Comment(s): Pt completed 1st round chemotherapy on 04/21/18 for squamous cell cancer-growth under L arm per pt, past hx squamous cell skin cancer with removals, 1997 renal transplant, anemia with iron therapy, 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-found on cat scan, CACHORRO with CPAP use, ND x 2, limited vision d/t bilateral macular degeneration-gets eye injections, past gout bilateral feet Last Myocardial Infarction Date:: 2004 History of Any Multi-Drug Resistant Organisms: None Reported Past Surgical History: Coronary Bypass/CABG, Ear Surgery, Heart Catheterization With Stent, Hernia Repair, Joint Replacement Additional Past Surgical History / Comment(s): January 2018 growth under L arm biopsied, PCI with 3 stents, 1997 kidney transplant, 2004 CABG-3 vessels, multiple skin cancer removals and L ear incision dehisence/repaired, bilateral myringotomy/tubes, L total knee, colonoscopy, QUYNH, R inguinal hernia repair. Past Anesthesia/Blood Transfusion Reactions: No Reported Reaction Additional Past Anesthesia/Blood Transfusion Reaction / Comm: Pt has received blood without reaction. Date of Last Stent Placement:: unknown Smoking Status: Former smoker - Past Family History Father Family Medical History: Myocardial Infarction (ND) Additional Family Medical History / Comment(s): Father of a ND in his late 50s or early 60s. Mother Family Medical History: No Reported History Additional Family Medical History / Comment(s): Pt states mother was pretty healthy and lived into her 80s. Medications and Allergies Home Medications Medication Instructions Recorded Confirmed Type Doxazosin [Cardura] 2 mg PO DAILY 03/15/14 04/27/[address] [Myfortic] 540 mg PO BID 03/15/14 04/27/18 History Simvastatin [Zocor] 20 mg PO HS 03/15/14 04/27/18 History Albuterol Sulfate [Proair Hfa] 2 puff INHALATION RT-Q6H PRN 04/27/18 04/27/18 History Aspirin EC [Ecotrin Low Dose] 81 mg PO DAILY 04/27/18 04/27/18 History Budesonide/Formoterol Fumarate 2 puff INHALATION RT-BID 04/27/18 04/27/18 History [Symbicort 160-4.5 Mcg Inhaler] Cholecalciferol [Vitamin D3] 1,000 unit PO DAILY 04/27/18 04/27/18 History Ferrous Sulfate [Feosol] 325 mg PO DAILY 04/27/18 04/27/18 History HYDROcodone/APAP 10-325MG [[place] 2 tab PO BID 04/27/18 04/27/18 History 10-325] Losartan Potassium [Cozaar] 25 mg PO DAILY 04/27/18 04/27/18 History Nausea Medicaine Unknown 1 tab PO Q6H PRN 04/27/18 04/27/18 History Rivaroxaban [Xarelto] 15 mg PO HS 04/27/18 04/27/18 History Tacrolimus [Prograf] 2 mg PO Q12H 04/27/18 04/27/18 History amLODIPine [Norvasc] 10 mg PO DAILY 04/27/18 04/27/18 History Allergies Allergy/AdvReac Type Severity Reaction Status Date / Time No Known Allergies Allergy Verified 04/27/18 07:28 Physical Exam Vitals: Vital Signs Temp Pulse Pulse Pulse Resp BP BP 04/28/18 16:15 80 27 H 101/64 04/28/18 16:00 98.1 F 75 22 101/64 04/28/18 15:54 80 04/28/18 15:45 79 22 04/28/18 15:30 78 22 04/28/18 15:18 83 04/28/18 15:15 79 22 04/28/18 15:00 79 22 04/28/18 14:45 83 22 118/71 04/28/18 14:30 22 149/84 04/28/18 14:28 22 140/75 04/28/18 12:00 98.8 F 82 22 100/60 04/28/18 11:32 98.9 F 89 22 103/66 04/28/18 11:30 84 22 91/61 04/28/18 11:00 96 22 98/58 04/28/18 10:30 82 22 99/69 04/28/18 10:00 80 22 107/64 04/28/18 09:30 91 31 H 123/71 04/28/18 09:00 84 25 H 116/63 04/28/18 08:30 87 20 107/66 04/28/18 08:00 97.6 F 83 14 111/62 04/28/18 07:53 77 04/28/18 07:44 73 04/28/18 07:30 84 22 106/64 04/28/18 07:00 81 4 L 92/62 04/28/18 06:30 86 8 L 04/28/18 06:00 99.9 F H 80 27 H 93/52 04/28/18 05:30 87 36 H 109/66 04/28/18 05:00 90 17 96/56 04/28/18 04:30 102 H 25 H 92/59 04/28/18 04:00 101.2 F H 92 27 H 95/56 04/28/18 03:30 90 23 62/40 04/28/18 03:00 84 18 04/28/18 02:30 85 24 98/55 04/28/18 02:00 92 24 94/57 04/28/18 01:30 88 12 99/62 04/28/18 00:20 81 81/54 04/28/18 00:10 81 73/50 04/28/18 00:00 86 28 H 82/51 04/27/18 23:50 99.2 F 80 30 H 63/41 04/27/18 23:15 04/27/18 22:10 121 H 36 H 04/27/18 22:05 34 H 04/27/18 22:00 98.0 F 92 36 H 04/27/18 21:01 90 04/27/18 20:51 89 04/27/18 20:47 89 32 H BP Pulse Ox 04/28/18 16:15 97 04/28/18 16:00 96 04/28/18 15:54 04/28/18 15:45 96 04/28/18 15:30 94 L 04/28/18 15:18 04/28/18 15:15 94 L 04/28/18 15:00 94 L 04/28/18 14:45 95 04/28/18 14:30 98 04/28/18 14:28 99 04/28/18 12:00 96 04/28/18 11:32 99 04/28/18 11:30 98 04/28/18 11:00 98 04/28/18 10:30 96 04/28/18 10:00 95 04/28/18 09:30 94 L 04/28/18 09:00 94 L 04/28/18 08:30 92 L 04/28/18 08:00 90 L 04/28/18 07:53 04/28/18 07:44 93 L 04/28/18 07:30 91 L 04/28/18 07:00 91 L 04/28/18 06:30 90 L 04/28/18 06:00 93 L 04/28/18 05:30 92 L 04/28/18 05:00 94 L 04/28/18 04:30 94 L 04/28/18 04:00 92 L 04/28/18 03:30 91 L 04/28/18 03:00 92 L 04/28/18 02:30 90 L 04/28/18 02:00 93 L 04/28/18 01:30 93 L 04/28/18 00:20 93 L 04/28/18 00:10 93 L 04/28/18 00:00 93 L 04/27/18 23:50 93 L 04/27/18 23:15 93 L 04/27/18 22:10 230/162 94 L 04/27/18 22:05 158/124 04/27/18 22:00 88/54 94 L 04/27/18 21:01 04/27/18 20:51 04/27/18 20:47 80/53 97 Intake and Output 04/28/18 04/28/18 04/28/18 06:59 14:59 22:59 Intake Total 2750.000 4795.462 478.87 Output Total 1070 935 33 Balance 1809.066 7680.462 445.87 Intake: IV 2500 3300 6 0.9 per pressure 6 ACETAMINOPHEN IV (For NPO 100 ) 1,000 mg In Empty Bag 1 bag @ 400 mls/hr IVPB Q6HR PRN Rx#:[id number] Sodium Chloride 0.9% 1, 400 000 ml @ 100 mls/hr IV . Q10H JENNA Rx#:[id number] Sodium Chloride 0.9% 1, 1999 2500 000 ml @ 500 mls/hr IV . Q2H JENNA Rx#:[id number] Intake, IV Titration 250.000 875.462 472.87 Amount Dextrose 5% in Water 1, 50 100 000 ml @ 50 mls/hr IV . Q23H JENNA with Sodium Bicarb (1 Meq/ml) 150 ml Rx#:[id number] Empty Bag 1 bag @ 3 UNIT/ 123.9 KG/MIN 434.3 mls/hr IV . Q18M ONE with Human Prothrombin Complx 3,872 unit Rx#:[id number] Norepinephrin 4 mg-0.9% 250.000 344.312 17.5 Ns Pmx 4 mg In 250 ml @ Titrate IV .Q0M JENNA Rx#: [id number] Piperacillin-Tazobactam 3 50 .375 gm In Dextrose/Water 1 50ml.bag @ 12.5 mls/hr IVPB Q8HR [facility] Rx#: [id number] Propofol 1,000 mg In 7.25 55.37 Empty Bag 1 bag @ Titrate IV .Q0M JENNA Rx#: [id number] Sodium Chloride 0.9% 1, 250 250 000 ml @ 250 mls/hr IV . Q4H [facility] Rx#:[id number] metroNIDAZOLE-NS PMX 500 100 mg In Saline 1 100ml.bag @ 100 mls/hr IVPB Q8HR JENNA Rx#:[id number] Blood Product 620 Rc As-1 Unit 310 [id number] Rc As-1 Unit 310 [id number] Output: Gastric Drainage 850 575 Urine 220 160 33 Estimated Blood Loss 200 Other: Voiding Method Indwelling Catheter Indwelling Catheter Weight 75.4 kg ABP, PAP, CO, CI - Last 8 Hours Arterial Blood Pressure 119/59 Arterial Blood Pressure 116/56 Arterial Blood Pressure 113/58 Arterial Blood Pressure 100/55 Arterial Blood Pressure 100/52 Arterial Blood Pressure 98/53 Arterial Blood Pressure 137/61 Arterial Blood Pressure 126/23 Arterial Blood Pressure 170/68 - Constitutional General appearance: cooperative, no acute distress - EENT NG tube to low intermittent suction, dark bile content Eyes: EOMI, dentition normal ENT: hard of hearing, NA/AT, normal oropharynx - Neck supple, trachea midline - Respiratory Respiratory: bilateral: diminished (lower lobes) - Gastrointestinal General gastrointestinal: decreased bowel sounds, distended, rigid, tenderness - Integumentary Integumentary: pale - Neurologic Neurologic: CNII-XII intact - Musculoskeletal Musculoskeletal: generalized weakness, strength equal bilaterally - Psychiatric Psychiatric: A&O x's 3, appropriate affect, intact judgment & insight Results CBC & Chem 7: 04/28/18 17:31 04/28/18 17:31 Labs: Abnormal Lab Results - Last 24 Hours (Table) 04/27/18 04/27/18 04/27/18 Range/Units 21:25 21:40 23:38 WBC (3.8-10.6) k/uL RBC (4.30-5.90) m/uL Hgb (13.0-17.5) gm/dL Hct (39.0-53.0) % MCHC (31.0-37.0) g/dL Plt Count (150-450) k/uL Neutrophils # (1.3-7.7) k/uL Neutrophils # (Manual) (1.3-7.7) k/uL Lymphocytes # (1.0-4.8) k/uL Lymphocytes # (Manual) (1.0-4.8) k/uL INR (<1.2) APTT (22.0-30.0) sec ABG pH (7.35-7.45) ABG pCO2 (35-45) mmHg ABG pO2 (83-108) mmHg ABG HCO3 (21-25) mmol/L ABG Total CO2 (19-24) mmol/L ABG O2 Saturation (94-97) % Sodium (137-145) mmol/L Potassium (3.5-5.1) mmol/L Carbon Dioxide (22-30) mmol/L BUN (9-20) mg/dL Creatinine (0.66-1.25) mg/dL Glucose (74-99) mg/dL POC Glucose (mg/dL) 125 H 121 H (75-99) mg/dL Plasma Lactic Acid Papito (0.7-2.0) mmol/L Calcium (8.4-10.2) mg/dL Phosphorus (2.5-4.5) mg/dL Magnesium (1.6-2.3) mg/dL ALT (21-72) U/L Total Protein (6.3-8.2) g/dL Albumin (3.5-5.0) g/dL Urine Protein 1+ H (Negative) Urine Blood Trace H (Negative) Urine Bilirubin (Negative) Urine RBC 20 H (0-5) /hpf Ur Squamous Epith Cells 7 H (0-4) /hpf Amorphous Sediment Rare H (None) /hpf Urine Mucus Rare H (None) /hpf Crossmatch 0604/28/18 04/28/18 Range/Units 00:10 00:17 00:17 WBC 2.2 L (3.8-10.6) k/uL RBC 3.02 L (4.30-5.90) m/uL Hgb 8.8 L D (13.0-17.5) gm/dL Hct 28.8 L (39.0-53.0) % MCHC 30.5 L (31.0-37.0) g/dL Plt Count 141 L (150-450) k/uL Neutrophils # (1.3-7.7) k/uL Neutrophils # (Manual) 1.00 L (1.3-7.7) k/uL Lymphocytes # (1.0-4.8) k/uL Lymphocytes # (Manual) (1.0-4.8) k/uL INR (<1.2) APTT (22.0-30.0) sec ABG pH (7.35-7.45) ABG pCO2 26 L (35-45) mmHg ABG pO2 68 L (83-108) mmHg ABG HCO3 18 L (21-25) mmol/L ABG Total CO2 18 L (19-24) mmol/L ABG O2 Saturation 93.1 L (94-97) % Sodium 132 L (137-145) mmol/L Potassium 5.4 H (3.5-5.1) mmol/L Carbon Dioxide 18 L (22-30) mmol/L BUN 98 H* (9-20) mg/dL Creatinine 2.70 H (0.66-1.25) mg/dL Glucose 111 H (74-99) mg/dL POC Glucose (mg/dL) (75-99) mg/dL Plasma Lactic Acid Papito (0.7-2.0) mmol/L Calcium 8.0 L (8.4-10.2) mg/dL Phosphorus 7.0 H (2.5-4.5) mg/dL Magnesium 2.6 H (1.6-2.3) mg/dL ALT 84 H (21-72) U/L Total Protein 5.0 L (6.3-8.2) g/dL Albumin 2.7 L (3.5-5.0) g/dL Urine Protein (Negative) Urine Blood (Negative) Urine Bilirubin (Negative) Urine RBC (0-5) /hpf Ur Squamous Epith Cells (0-4) /hpf Amorphous Sediment (None) /hpf Urine Mucus (None) /hpf Crossmatch 04/28/18 04/28/18 04/28/18 Range/Units 00:17 01:30 04:42 WBC 1.2 L* (3.8-10.6) k/uL RBC 2.80 L (4.30-5.90) m/uL Hgb 8.2 L (13.0-17.5) gm/dL Hct 26.7 L (39.0-53.0) % MCHC 30.6 L (31.0-37.0) g/dL Plt Count 115 L (150-450) k/uL Neutrophils # 0.6 L (1.3-7.7) k/uL Neutrophils # (Manual) (1.3-7.7) k/uL Lymphocytes # 0.5 L (1.0-4.8) k/uL Lymphocytes # (Manual) (1.0-4.8) k/uL INR (<1.2) APTT (22.0-30.0) sec ABG pH (7.35-7.45) ABG pCO2 (35-45) mmHg ABG pO2 (83-108) mmHg ABG HCO3 (21-25) mmol/L ABG Total CO2 (19-24) mmol/L ABG O2 Saturation (94-97) % Sodium (137-145) mmol/L Potassium (3.5-5.1) mmol/L Carbon Dioxide (22-30) mmol/L BUN (9-20) mg/dL Creatinine (0.66-1.25) mg/dL Glucose (74-99) mg/dL POC Glucose (mg/dL) (75-99) mg/dL Plasma Lactic Acid Papito 2.8 H* (0.7-2.0) mmol/L Calcium (8.4-10.2) mg/dL Phosphorus (2.5-4.5) mg/dL Magnesium (1.6-2.3) mg/dL ALT (21-72) U/L Total Protein (6.3-8.2) g/dL Albumin (3.5-5.0) g/dL Urine Protein 1+ H (Negative) Urine Blood Moderate H (Negative) Urine Bilirubin 1+ H (Negative) Urine RBC 17 H (0-5) /hpf Ur Squamous Epith Cells (0-4) /hpf Amorphous Sediment (None) /hpf Urine Mucus Rare H (None) /hpf Crossmatch 04/28/18 04/28/18 04/28/18 Range/Units 04:42 04:42 05:00 WBC (3.8-10.6) k/uL RBC (4.30-5.90) m/uL Hgb (13.0-17.5) gm/dL Hct (39.0-53.0) % MCHC (31.0-37.0) g/dL Plt Count (150-450) k/uL Neutrophils # (1.3-7.7) k/uL Neutrophils # (Manual) (1.3-7.7) k/uL Lymphocytes # (1.0-4.8) k/uL Lymphocytes # (Manual) (1.0-4.8) k/uL INR (<1.2) APTT (22.0-30.0) sec ABG pH (7.35-7.45) ABG pCO2 24 L (35-45) mmHg ABG pO2 73 L (83-108) mmHg ABG HCO3 16 L (21-25) mmol/L ABG Total CO2 17 L (19-24) mmol/L ABG O2 Saturation (94-97) % Sodium 132 L (137-145) mmol/L Potassium (3.5-5.1) mmol/L Carbon Dioxide 16 L (22-30) mmol/L BUN 94 H* (9-20) mg/dL Creatinine 2.50 H (0.66-1.25) mg/dL Glucose (74-99) mg/dL POC Glucose (mg/dL) (75-99) mg/dL Plasma Lactic Acid Papito 2.9 H* (0.7-2.0) mmol/L Calcium 7.1 L (8.4-10.2) mg/dL Phosphorus 6.6 H (2.5-4.5) mg/dL Magnesium 2.5 H (1.6-2.3) mg/dL ALT (21-72) U/L Total Protein (6.3-8.2) g/dL Albumin (3.5-5.0) g/dL Urine Protein (Negative) Urine Blood (Negative) Urine Bilirubin (Negative) Urine RBC (0-5) /hpf Ur Squamous Epith Cells (0-4) /hpf Amorphous Sediment (None) /hpf Urine Mucus (None) /hpf Crossmatch 04/28/18 04/28/18 04/28/18 Range/Units 10:35 10:47 11:35 WBC (3.8-10.6) k/uL RBC (4.30-5.90) m/uL Hgb (13.0-17.5) gm/dL Hct (39.0-53.0) % MCHC (31.0-37.0) g/dL Plt Count (150-450) k/uL Neutrophils # (1.3-7.7) k/uL Neutrophils # (Manual) (1.3-7.7) k/uL Lymphocytes # (1.0-4.8) k/uL Lymphocytes # (Manual) (1.0-4.8) k/uL INR 1.3 H (<1.2) APTT 30.9 H (22.0-30.0) sec ABG pH 7.23 L (7.35-7.45) ABG pCO2 (35-45) mmHg ABG pO2 160 H (83-108) mmHg ABG HCO3 16 L (21-25) mmol/L ABG Total CO2 18 L (19-24) mmol/L ABG O2 Saturation 97.9 H (94-97) % Sodium (137-145) mmol/L Potassium (3.5-5.1) mmol/L Carbon Dioxide (22-30) mmol/L BUN (9-20) mg/dL Creatinine (0.66-1.25) mg/dL Glucose (74-99) mg/dL POC Glucose (mg/dL) (75-99) mg/dL Plasma Lactic Acid Papito (0.7-2.0) mmol/L Calcium (8.4-10.2) mg/dL Phosphorus (2.5-4.5) mg/dL Magnesium (1.6-2.3) mg/dL ALT (21-72) U/L Total Protein (6.3-8.2) g/dL Albumin (3.5-5.0) g/dL Urine Protein (Negative) Urine Blood (Negative) Urine Bilirubin (Negative) Urine RBC (0-5) /hpf Ur Squamous Epith Cells (0-4) /hpf Amorphous Sediment (None) /hpf Urine Mucus (None) /hpf Crossmatch See Detail 04/28/18 04/28/18 04/28/18 Range/Units 13:05 13:40 13:41 WBC 1.2 L* (3.8-10.6) k/uL RBC 2.75 L (4.30-5.90) m/uL Hgb 8.0 L (13.0-17.5) gm/dL Hct 25.3 L (39.0-53.0) % MCHC (31.0-37.0) g/dL Plt Count 94 L (150-450) k/uL Neutrophils # (1.3-7.7) k/uL Neutrophils # (Manual) 0.60 L (1.3-7.7) k/uL Lymphocytes # (1.0-4.8) k/uL Lymphocytes # (Manual) 0.43 L (1.0-4.8) k/uL INR (<1.2) APTT (22.0-30.0) sec ABG pH 7.22 L (7.35-7.45) ABG pCO2 33 L (35-45) mmHg ABG pO2 201 H 244 H (83-108) mmHg ABG HCO3 13 L 20 L (21-25) mmol/L ABG Total CO2 (19-24) mmol/L ABG O2 Saturation 97.7 H 98.4 H (94-97) % Sodium (137-145) mmol/L Potassium (3.5-5.1) mmol/L Carbon Dioxide (22-30) mmol/L BUN (9-20) mg/dL Creatinine (0.66-1.25) mg/dL Glucose (74-99) mg/dL POC Glucose (mg/dL) (75-99) mg/dL Plasma Lactic Acid Papito (0.7-2.0) mmol/L Calcium (8.4-10.2) mg/dL Phosphorus (2.5-4.5) mg/dL Magnesium (1.6-2.3) mg/dL ALT (21-72) U/L Total Protein (6.3-8.2) g/dL Albumin (3.5-5.0) g/dL Urine Protein (Negative) Urine Blood (Negative) Urine Bilirubin (Negative) Urine RBC (0-5) /hpf Ur Squamous Epith Cells (0-4) /hpf Amorphous Sediment (None) /hpf Urine Mucus (None) /hpf Crossmatch Microbiology - Last 24 Hours (Table) 04/28/18 01:30 Urine Culture - Preliminary Urine,Catheterized 04/27/18 05:50 Blood Culture - Preliminary Blood No Growth after 24 hours Assessment and Plan Plan: Assessment and Recommendations: 1. Squamous Cell Carcinoma - Axillary Nodule P16 positive - Status post cycle one of chemotherapy with carboplatin and taxol 2. Pancytopenia - Secondary to recent chemotherapy - Add Gentry stimulating factor - Prophylaxic antibiotics - Monitor CBC daily and transfuse plt less than 15 (in picture of sepsis and pancytopenia from chemotherapy) or less than 50 if s/s of bleeding - Transfuse PRBC hgb less than 7 - Neutropenia precautions - Discussed risks of surgical intervention with low blood counts, although risk of emergent situation. Patient will be taken to surgery this am. 3. Acute Bowel Obstruction, Concern for perotinitis versus perforation - Plan for emergent surgical intervention today 4. Atrial fibrillation - - On anticoagulation therapy with xarelto - Plan for reversal and recommend higher dose Kcentra with decreased renal function, to allow proper reversal of anticoagulation 5. Chronic Renal Failure with history of transplant and immunosuppressant therapy 6. Septic Shock - Per ICU and ID management Physician Attestation: I have completed the full history and physical of this patient and agree with above dictation by Julieth Clark NP. Dictated as a scribe
[2018-04-28] MEDS: CHLORHEXIDINE GLUCONATE 15 ML CUP MUCOUS MEM SCH (20:59)
[2018-04-28] MEDS ORDERED: VANCOMYCIN IV PER PHARMACY 1 EACH MISC MISCELLANE PRN (22:00)
[2018-04-28] MEDS ORDERED: VANCOMYCIN 1,500 MG in SODIUM CHLORIDE 0.9% 250 ML IVPB ONE (22:30)
[2018-04-29] MEDS: MORPHINE SULFATE 2 MG/ML SYRINGE IV PRN (04:38)
[2018-04-29 04:50] LABS: Anisocytosis Slight; HCT 27.3 % (39.0-53.0); HGB 8.6 gm/dL (13.0-17.5); MCH 28.7 pg (25.0-35.0); MCHC 31.4 g/dL (31.0-37.0); MCV 91.5 fL (80.0-100.0); RBC 2.99 m/uL (4.30-5.90); RDW 16.2 % (11.5-15.5)
[2018-04-29 04:55] LABS: ABG Base Excess -0.4 mmol/L; ABG HCO3 23 mmol/L (21-25); ABG PCO2 29 mmHg (35-45); ABG PO2 70 mmHg (83-108); ABG TCO2 24 mmol/L (19-24)
[2018-04-29 05:04] LABS: Albumin 1.7 g/dL (3.5-5.0); Calcium 6.9 mg/dL (8.4-10.2); Magnesium 2.3 mg/dL (1.6-2.3); Phosphorus 5.7 mg/dL (2.5-4.5); Potassium 4.3 mmol/L (3.5-5.1); Total Bilirubin 0.6 mg/dL (0.2-1.3); Total Protein 3.5 g/dL (6.3-8.2)
[2018-04-29 05:40] LABS: WBC 1.6 k/uL (3.8-10.6)
[2018-04-29 05:41] LABS: Platelet Count 97 k/uL (150-450)
[2018-04-29 05:49] LABS: Band Neutrophils % 19 %; Lymphocytes # (M) 0.46 k/uL (1.0-4.8); Monocytes # (M) 0.13 k/uL (0-1.0); Neutrophils % (M) 44 %; Nucleated Red Blood Cells 0 /100 WBC (0-0); Total Cells Counted 100
[2018-04-29 05:50] LABS: Crenated RBC Present; Polychromasia Present
[2018-04-29 05:52] LABS: Poikilocytosis (M) Present
[2018-04-29 05:54] LABS: Ovalocytes Present
[2018-04-29] MEDS: ALBUTEROL NEBULIZED 2.5 MG/3 ML INHALATION PRN (07:08)
[2018-04-29] MEDS: LACTATED RINGERS 1,000 ML IV SCH ×4 (08:24→16:43)
[2018-04-29] MEDS: PIPERACILLIN-TAZOBACTAM 3.375 GM in DEXTROSE/WATER 1 50ML.BAG IVPB SCH ×2 (08:25→16:30)
[2018-04-29] MEDS: metroNIDAZOLE-NS PMX 500 MG in SALINE 1 100ML.BAG IVPB SCH ×2 (08:25→16:30)
[2018-04-29] MEDS: CHLORHEXIDINE GLUCONATE 15 ML CUP MUCOUS MEM SCH ×2 (08:26→20:01)
[2018-04-29] MEDS: PANTOPRAZOLE 40 MG/10 ML VIAL IV SCH (08:26)
[2018-04-29] MEDS ORDERED: IPRATROPIUM-ALBUTEROL 3 ML NEB INHALATION PRN (08:32)
[2018-04-29] MEDS ORDERED: ACETAMINOPHEN IV (For NPO) 1,000 MG in EMPTY BAG 1 BAG IVPB PRN (08:37)
[2018-04-29] MEDS: ENOXAPARIN 30 MG/0.3 ML SYRINGE SQ SCH (09:24)
[2018-04-29] MEDS: FILGRASTIM-SNDZ 480 MCG/0.8 ML SYRINGE SQ SCH (09:25)
--- NOTE | 2018-04-29 09:27 | P.PN ---
Subjective Progress Note Date: 04/29/18 Principal diagnosis: Acute bowel obstruction with sepsis and septic shock, acute hypoxic respiratory failure related to acute lung injury secondary to overwhelming sepsis 73-year-old male well-known to me patient has been admitted into the hospital with abdominal discomfort and pain and severe constipation symptoms started about 4-5 days ago patient has similar episode about 3 days ago was presented into the emergency department and was evaluated subsequently discharged and came back again with coffee-ground emesis constipation abdominal discomfort and pain of crampiness, this patient was initially initially admitted on the medical floor where he developed problems with hypotension and was transferred to the ICU patient was resuscitated with fluid with continuation of the hypertension also in the interim found to have a worsening of abdominal discomfort and pain, patient has been given crystalloids and eventually was started on vasopressors. During my evaluation patient was tachypneic tachycardic respiratory rate as well as mid 30s heart rate was 100 210 patient continued to complain of abdominal discomfort and pain he is been on 15 L high flow oxygen with saturation in low 90s and has very ill-looking appearance decision was made to intubate patient electively for airway protection also notify surgical service for evaluation with a repeat computed tomography scan of the abdominal and pelvis and compared with the one performed yesterday. This patient is well-known to me for the lump found on the left axilla eventually with a diagnosis of squamous cell cancer of unknown etiology or unknown primary patient has been currently on chemotherapy by Dr. Velásquez, patient also has probable problems with chronic atrial fibrillation and congestive heart failure and history of renal transplant and has been on immunosuppressive agent Laboratory data radiographic studies reviewed care plan discussed with oncology service as well On 04/29/2018 patient seen again in intensive care unit. Patient is status post exploratory laparotomy, and subtotal colectomy with ileostomy for toxic megacolon. Today he remains sedated, and on mechanical ventilation, with vent settings of assist control mode with a rate of 22, tidal volume of 450, FiO2 50% , and PEEP of 5, morning blood gases were reviewed, and showed pO2 of 70, pCO2 of 29, and pH of 7.50, consistent with primary respiratory alkalosis. Today's chest x-ray has been reviewed by Dr. Delvalle, and it showed blunting of the right costophrenic angle, and some volume loss in the right lower lobe, and right basilar atelectasis/infiltrate. Patient was aggressively resuscitated with 8 L of crystalloids yesterday, he is receiving another liter of lactated Ringer's today for hypotension. His maintenance IV fluids is D5 W with 3 A of bicarb at a rate of 50 ML per hour, 0.9 normal saline at a rate of 100 ML per hour. Norepinephrine is infusing at a rate of 28 mics per minute, propofol at 25 mics per kilo per minute. Lung sounds are positive for coarse breath sounds bilaterally. Patient has a orogastric tube in place, 2 low intermittent suction. Mid abdominal incision is clean dry and intact, well approximated, right lower abdominal ileostomy is without any gas or stool. Today's labs were reviewed, and the PVCs 1.6, hemoglobin is 8.6, platelet count is 97, serum sodium is 143, potassium is 4.3, chloride is 111, renal profile with BUN 76, creatinine is 2.24. Patient has been started on Xarxio for medical oncology. Antibiotic coverage includes Zosyn, Flagyl, and vancomycin. Blood culture shows no growth to date, urine culture is pending. Patient did have a fever of 101.2F yesterday, and again this morning. No significant endotracheal secretions. Objective - Vital Signs Vital signs: Vital Signs Temp 99.7 F H 04/29/18 04:00 Pulse 82 04/29/18 07:34 Resp 26 H 04/29/18 07:00 BP 101/54 04/29/18 07:00 Pulse Ox 97 04/29/18 07:00 Intake & Output 04/28/18 04/29/18 04/29/18 18:59 06:59 18:59 Intake Total 7478.177 2432.041 Output Total 888 2115 Balance 6590.177 317.041 Weight 83.2 kg Intake: IV 5437.0 2126.5 0.9 per pressure 12 39 Calcium Chloride 2,000 mg 100 In Sodium Chloride 0.9% 100 ml @ 100 mls/hr IVPB ONCE STA Rx#:[id number] Dextrose 5% in Water 1, 650 000 ml @ 50 mls/hr IV . Q23H JENNA with Sodium Bicarb (1 Meq/ml) 150 ml Rx#:[id number] Piperacillin-Tazobactam 3 25.0 37.5 .375 gm In Dextrose/Water 1 50ml.bag @ 12.5 mls/hr IVPB Q8HR [facility] Rx#: [id number] Sodium Chloride 0.9% 1, 1300 000 ml @ 100 mls/hr IV . Q10H [facility] Rx#:[id number] Sodium Chloride 0.9% 1, 2500 000 ml @ 500 mls/hr IV . Q2H [facility] Rx#:[id number] Sodium Chloride 0.9% 2, 2000 000 ml @ 999 mls/hr IV . Q2H1M ONE Rx#:[id number] metroNIDAZOLE-NS PMX 500 100 mg In Saline 1 100ml.bag @ 100 mls/hr IVPB Q8HR [facility] Rx#:[id number] Intake, IV Titration 1421.177 305.541 Amount Dextrose 5% in Water 1, 200 000 ml @ 50 mls/hr IV . Q23H JENNA with Sodium Bicarb (1 Meq/ml) 150 ml Rx#:[id number] Empty Bag 1 bag @ 3 UNIT/ 123.9 KG/MIN 434.3 mls/hr IV . Q18M ONE with Human Prothrombin Complx 3,872 unit Rx#:[id number] Norepinephrin 16 mg-0.9% 289.221 Ns Pmx 16 mg In 250 ml @ Titrate IV .Q0M [facility] Rx#: [id number] Norepinephrin 4 mg-0.9% 361.812 Ns Pmx 4 mg In 250 ml @ Titrate IV .Q0M [facility] Rx#: [id number] Piperacillin-Tazobactam 3 50 .375 gm In Dextrose/Water 1 50ml.bag @ 12.5 mls/hr IVPB Q8HR [facility] Rx#: [id number] Propofol 1,000 mg In 85.465 16.32 Empty Bag 1 bag @ Titrate IV .Q0M [facility] Rx#: [id number] Sodium Chloride 0.9% 1, 500 000 ml @ 250 mls/hr IV . Q4H [facility] Rx#:[id number] metroNIDAZOLE-NS PMX 500 100 mg In Saline 1 100ml.bag @ 100 mls/hr IVPB Q8HR [facility] Rx#:[id number] Blood Product 620 Rc As-1 Unit 310 [id number] Rc As-1 Unit 310 [id number] Output: Gastric Drainage 495 550 Urine 193 1565 Estimated Blood Loss 200 Other: Voiding Method Indwelling Catheter Indwelling Catheter ABP, PAP, CO, CI - Last Documented Arterial Blood Pressure 108/51 - Exam - Constitutional General appearance: average body habitus, 73-year-old white male, sedated, on mechanical ventilation - EENT Eyes: PERRLA, poor dentition, normal appearance ENT: hard of hearing Ears: bilateral: normal - Neck Neck: normal ROM Carotids: bilateral: upstroke normal, bruit absent Thyroid: bilateral: normal size - Respiratory Respiratory: bilateral: Coarse lung sounds noted bilaterally, negative: dullness , rales, rhonchi, wheezing - Cardiovascular Heart sounds: normal: S1, S2 - Gastrointestinal Diffuse distention with tenderness and hypoactive bowel sounds. Mid abdominal incision is covered with a surgical dressing, clean dry and intact, approximated , there is a right lower quadrant ileostomy, with no gas or stool General gastrointestinal: absent bowel sounds, distended, tenderness - Integumentary Integumentary: decreased turgor - Neurologic Neurologic: CNII-XII intact - Musculoskeletal Musculoskeletal: gait normal, generalized weakness, strength equal bilaterally - Psychiatric Psychiatric: unable to assess, patient is sedated on mechanical ventilation. - Labs CBC & Chem 7: 04/29/18 04:19 04/29/18 04:19 Labs: Abnormal Lab Results - Last 24 Hours (Table) 04/28/18 04/28/18 04/28/18 Range/Units 10:35 10:47 11:35 WBC (3.8-10.6) k/uL RBC (4.30-5.90) m/uL Hgb (13.0-17.5) gm/dL Hct (39.0-53.0) % RDW (11.5-15.5) % Plt Count (150-450) k/uL Neutrophils # (Manual) (1.3-7.7) k/uL Lymphocytes # (Manual) (1.0-4.8) k/uL Metamyelocytes # (Man) (0) k/uL INR 1.3 H (<1.2) APTT 30.9 H (22.0-30.0) sec ABG pH 7.23 L (7.35-7.45) ABG pCO2 (35-45) mmHg ABG pO2 160 H (83-108) mmHg ABG HCO3 16 L (21-25) mmol/L ABG Total CO2 18 L (19-24) mmol/L ABG O2 Saturation 97.9 H (94-97) % Chloride (98-107) mmol/L Carbon Dioxide (22-30) mmol/L BUN (9-20) mg/dL Creatinine (0.66-1.25) mg/dL Glucose (74-99) mg/dL Calcium (8.4-10.2) mg/dL Phosphorus (2.5-4.5) mg/dL AST (17-59) U/L ALT (21-72) U/L Total Protein (6.3-8.2) g/dL Albumin (3.5-5.0) g/dL Crossmatch See Detail 04/28/18 04/28/18 04/28/18 Range/Units 13:05 13:40 13:41 WBC 1.2 L* (3.8-10.6) k/uL RBC 2.75 L (4.30-5.90) m/uL Hgb 8.0 L (13.0-17.5) gm/dL Hct 25.3 L (39.0-53.0) % RDW (11.5-15.5) % Plt Count 94 L (150-450) k/uL Neutrophils # (Manual) 0.60 L (1.3-7.7) k/uL Lymphocytes # (Manual) 0.43 L (1.0-4.8) k/uL Metamyelocytes # (Man) (0) k/uL INR (<1.2) APTT (22.0-30.0) sec ABG pH 7.22 L (7.35-7.45) ABG pCO2 33 L (35-45) mmHg ABG pO2 201 H 244 H (83-108) mmHg ABG HCO3 13 L 20 L (21-25) mmol/L ABG Total CO2 (19-24) mmol/L ABG O2 Saturation 97.7 H 98.4 H (94-97) % Chloride (98-107) mmol/L Carbon Dioxide (22-30) mmol/L BUN (9-20) mg/dL Creatinine (0.66-1.25) mg/dL Glucose (74-99) mg/dL Calcium (8.4-10.2) mg/dL Phosphorus (2.5-4.5) mg/dL AST (17-59) U/L ALT (21-72) U/L Total Protein (6.3-8.2) g/dL Albumin (3.5-5.0) g/dL Crossmatch 04/28/18 04/28/18 04/29/18 Range/Units 17:31 17:31 04:19 WBC 1.0 L* 1.6 L* (3.8-10.6) k/uL RBC 2.74 L 2.99 L (4.30-5.90) m/uL Hgb 8.2 L 8.6 L (13.0-17.5) gm/dL Hct 25.3 L 27.3 L (39.0-53.0) % RDW 15.9 H 16.2 H (11.5-15.5) % Plt Count 80 L 97 L (150-450) k/uL Neutrophils # (Manual) 0.60 L 1.00 L (1.3-7.7) k/uL Lymphocytes # (Manual) 0.27 L 0.46 L (1.0-4.8) k/uL Metamyelocytes # (Man) 0.02 H (0) k/uL INR (<1.2) APTT (22.0-30.0) sec ABG pH (7.35-7.45) ABG pCO2 (35-45) mmHg ABG pO2 (83-108) mmHg ABG HCO3 (21-25) mmol/L ABG Total CO2 (19-24) mmol/L ABG O2 Saturation (94-97) % Chloride 109 H (98-107) mmol/L Carbon Dioxide 20 L (22-30) mmol/L BUN 84 H* (9-20) mg/dL Creatinine 2.17 H (0.66-1.25) mg/dL Glucose 126 H (74-99) mg/dL Calcium 5.6 L* (8.4-10.2) mg/dL Phosphorus (2.5-4.5) mg/dL AST 72 H (17-59) U/L ALT 95 H (21-72) U/L Total Protein 3.2 L (6.3-8.2) g/dL Albumin 1.6 L (3.5-5.0) g/dL Crossmatch 04/29/18 04/29/18 Range/Units 04:19 04:50 WBC (3.8-10.6) k/uL RBC (4.30-5.90) m/uL Hgb (13.0-17.5) gm/dL Hct (39.0-53.0) % RDW (11.5-15.5) % Plt Count (150-450) k/uL Neutrophils # (Manual) (1.3-7.7) k/uL Lymphocytes # (Manual) (1.0-4.8) k/uL Metamyelocytes # (Man) (0) k/uL INR (<1.2) APTT (22.0-30.0) sec ABG pH 7.50 H (7.35-7.45) ABG pCO2 29 L (35-45) mmHg ABG pO2 70 L (83-108) mmHg ABG HCO3 (21-25) mmol/L ABG Total CO2 (19-24) mmol/L ABG O2 Saturation (94-97) % Chloride 111 H (98-107) mmol/L Carbon Dioxide (22-30) mmol/L BUN 76 H (9-20) mg/dL Creatinine 2.24 H (0.66-1.25) mg/dL Glucose 106 H (74-99) mg/dL Calcium 6.9 L (8.4-10.2) mg/dL Phosphorus 5.7 H (2.5-4.5) mg/dL AST 77 H (17-59) U/L ALT 102 H (21-72) U/L Total Protein 3.5 L (6.3-8.2) g/dL Albumin 1.7 L (3.5-5.0) g/dL Crossmatch Microbiology - Last 24 Hours (Table) 04/27/18 05:50 Blood Culture - Preliminary Blood No Growth after 48 hours 04/28/18 01:30 Urine Culture - Preliminary Urine,Catheterized Assessment and Plan Plan: Assessment: Acute bowel obstruction with sepsis and septic shock, secondary to toxic megacolon, status post exploratory laparotomy, and subtotal colectomy and ileostomy, postop day 1 Suspect secondary peritonitis related to bowel obstruction, secondary to above Acute hypoxic respirator failure related to acute lung injury related to overwhelming sepsis and septic shock Acute blood loss anemia, and expected outcome of surgery, he was transfused with 2 units of PRBCs Squamous cell cancer of unknown primary Hemetemesis and upper GI bleed Chronic atrial fibrillation on anticoagulation, and the patient was administered PCC in the form of K centra prior to surgery 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 We'll continue Xarxio. Wean norepinephrine. Continue bicarb infusion, will maintain same vent settings. Continue nebulized bronchodilators, every 4 hours and as needed. Continue current antibiotic coverage. Patient's overall prognosis is extremely guarded in view of his critical illness, multiple comorbidities. Medical oncology is following in regards to his squamous cell cancer of unknown primary. GI and DVT prophylaxis, monitor labs, renal profile, electrolytes, white count and hemoglobin. Monitor fever pattern, urine output. I performed a history & physical examination of the patient and discussed their management with my nurse practitioner, Estela Harmon. I reviewed the nurse practitioner's note and agree with the documented findings and plan of care. Lung sounds are positive for coarse lung sounds. The findings and the impression was discussed with the patient. I attest to the documentation by the nurse practitioner. Time with Patient: Greater than 30
--- NOTE | 2018-04-29 09:54 | XR ---
EXAMINATION TYPE: XR chest 1V portable DATE OF EXAM: 04/29/2018 COMPARISON: Prior chest x-ray 04/28/2018 HISTORY: Intubated TECHNIQUE: Single frontal view of the chest is obtained. FINDINGS: Endotracheal and NG tube, left jugular central venous catheter are again noted and are ove rlying appropriate positions. No evident pneumothorax. Heart is enlarged. There are overlying cardiac leads. There is blunting of right costophrenic angle. Patchy basilar density is present bilaterally. IMPRESSION: Persistent cardiomegaly. Correlate for basilar atelectasis versus pneumonia associated e ffusion. Follow-up recommended.
--- NOTE | 2018-04-29 10:29 | P.PN ---
Subjective Patient is seen in follow-up for acute kidney injury and renal contrast and management. Patient received a donor renal allograft in 1997 at [facility]. Prograf and CellCept are currently held due to septic shock. Patient underwent exploratory laparotomy with subtotal colectomy and ileostomy on April 28. He is currently on 28 mics of Levophed. Urine output is 25-30 mL an hour. NG tube is in place. Vital signs are stable - on Levophed. General: The patient appeared well nourished and normally developed. NG tube in place. HEENT: Head exam is unremarkable. Neck is without jugular venous distension. LUNGS: Breath sounds decreased. Scattered rhonchi. HEART: Rate and Rhythm are regular. First and second heart sounds normal. No murmurs, rubs or gallops. ABDOMEN: Soft. Bowel sounds decreased. EXTREMITITES: No clubbing, cyanosis, or edema. Objective - Vital Signs Vital signs: Vital Signs Temp 101.2 F H 04/29/18 08:00 Pulse 81 04/29/18 09:00 Resp 22 04/29/18 09:00 BP 113/63 04/29/18 09:00 Pulse Ox 97 04/29/18 09:00 Intake & Output 04/28/18 04/29/18 04/29/18 18:59 06:59 18:59 Intake Total 7478.177 2432.041 1265.5 Output Total 888 2115 70 Balance 6590.177 942.027 5640.5 Weight 83.2 kg Intake: IV 5437.0 2126.5 1265.5 0.9 per pressure 12 39 3 Calcium Chloride 2,000 mg 100 In Sodium Chloride 0.9% 100 ml @ 100 mls/hr IVPB ONCE STA Rx#:[id number] Dextrose 5% in Water 1, 650 50 000 ml @ 50 mls/hr IV . Q23H JENNA with Sodium Bicarb (1 Meq/ml) 150 ml Rx#:[id number] Lactated Ringers 1,000 ml 1000 @ 999 mls/hr IV .Q1H1M JENNA Rx#:[id number] Piperacillin-Tazobactam 3 25.0 37.5 12.5 .375 gm In Dextrose/Water 1 50ml.bag @ 12.5 mls/hr IVPB Q8HR J[facility] Rx#: [id number] Sodium Chloride 0.9% 1, 1300 100 000 ml @ 100 mls/hr IV . Q10H [facility] Rx#:[id number] Sodium Chloride 0.9% 1, 2500 000 ml @ 500 mls/hr IV . Q2H [facility] Rx#:[id number] Sodium Chloride 0.9% 2, 2000 000 ml @ 999 mls/hr IV . Q2H1M ONE Rx#:[id number] metroNIDAZOLE-NS PMX 500 100 100 mg In Saline 1 100ml.bag @ 100 mls/hr IVPB Q8HR [facility] Rx#:[id number] Intake, IV Titration 1421.177 305.541 Amount Dextrose 5% in Water 1, 200 000 ml @ 50 mls/hr IV . Q23H JENNA with Sodium Bicarb (1 Meq/ml) 150 ml Rx#:[id number] Empty Bag 1 bag @ 3 UNIT/ 123.9 KG/MIN 434.3 mls/hr IV . Q18M ONE with Human Prothrombin Complx 3,872 unit Rx#:[id number] Norepinephrin 16 mg-0.9% 289.221 Ns Pmx 16 mg In 250 ml @ Titrate IV .Q0M [facility] Rx#: [id number] Norepinephrin 4 mg-0.9% 361.812 Ns Pmx 4 mg In 250 ml @ Titrate IV .Q0M [facility] Rx#: [id number] Piperacillin-Tazobactam 3 50 .375 gm In Dextrose/Water 1 50ml.bag @ 12.5 mls/hr IVPB Q8HR [facility] Rx#: [id number] Propofol 1,000 mg In 85.465 16.32 Empty Bag 1 bag @ Titrate IV .Q0M [facility] Rx#: [id number] Sodium Chloride 0.9% 1, 500 000 ml @ 250 mls/hr IV . Q4H [facility] Rx#:[id number] metroNIDAZOLE-NS PMX 500 100 mg In Saline 1 100ml.bag @ 100 mls/hr IVPB Q8HR [facility] Rx#:[id number] Blood Product 620 Rc As-1 Unit 310 [id number] Rc As-1 Unit 310 [id number] Output: Gastric Drainage 495 550 Urine 193 1565 70 Estimated Blood Loss 200 Other: Voiding Method Indwelling Catheter Indwelling Catheter ABP, PAP, CO, CI - Last Documented Arterial Blood Pressure 120/56 - Labs CBC & Chem 7: 04/29/18 04:19 04/29/18 04:19 Labs: Abnormal Lab Results - Last 24 Hours (Table) 04/28/18 04/28/18 04/28/18 Range/Units 10:35 10:47 11:35 WBC (3.8-10.6) k/uL RBC (4.30-5.90) m/uL Hgb (13.0-17.5) gm/dL Hct (39.0-53.0) % RDW (11.5-15.5) % Plt Count (150-450) k/uL Neutrophils # (Manual) (1.3-7.7) k/uL Lymphocytes # (Manual) (1.0-4.8) k/uL Metamyelocytes # (Man) (0) k/uL INR 1.3 H (<1.2) APTT 30.9 H (22.0-30.0) sec ABG pH 7.23 L (7.35-7.45) ABG pCO2 (35-45) mmHg ABG pO2 160 H (83-108) mmHg ABG HCO3 16 L (21-25) mmol/L ABG Total CO2 18 L (19-24) mmol/L ABG O2 Saturation 97.9 H (94-97) % Chloride (98-107) mmol/L Carbon Dioxide (22-30) mmol/L BUN (9-20) mg/dL Creatinine (0.66-1.25) mg/dL Glucose (74-99) mg/dL Calcium (8.4-10.2) mg/dL Phosphorus (2.5-4.5) mg/dL AST (17-59) U/L ALT (21-72) U/L Total Protein (6.3-8.2) g/dL Albumin (3.5-5.0) g/dL Crossmatch See Detail 04/28/18 04/28/18 04/28/18 Range/Units 13:05 13:40 13:41 WBC 1.2 L* (3.8-10.6) k/uL RBC 2.75 L (4.30-5.90) m/uL Hgb 8.0 L (13.0-17.5) gm/dL Hct 25.3 L (39.0-53.0) % RDW (11.5-15.5) % Plt Count 94 L (150-450) k/uL Neutrophils # (Manual) 0.60 L (1.3-7.7) k/uL Lymphocytes # (Manual) 0.43 L (1.0-4.8) k/uL Metamyelocytes # (Man) (0) k/uL INR (<1.2) APTT (22.0-30.0) sec ABG pH 7.22 L (7.35-7.45) ABG pCO2 33 L (35-45) mmHg ABG pO2 201 H 244 H (83-108) mmHg ABG HCO3 13 L 20 L (21-25) mmol/L ABG Total CO2 (19-24) mmol/L ABG O2 Saturation 97.7 H 98.4 H (94-97) % Chloride (98-107) mmol/L Carbon Dioxide (22-30) mmol/L BUN (9-20) mg/dL Creatinine (0.66-1.25) mg/dL Glucose (74-99) mg/dL Calcium (8.4-10.2) mg/dL Phosphorus (2.5-4.5) mg/dL AST (17-59) U/L ALT (21-72) U/L Total Protein (6.3-8.2) g/dL Albumin (3.5-5.0) g/dL Crossmatch 04/28/18 04/28/18 04/29/18 Range/Units 17:31 17:31 04:19 WBC 1.0 L* 1.6 L* (3.8-10.6) k/uL RBC 2.74 L 2.99 L (4.30-5.90) m/uL Hgb 8.2 L 8.6 L (13.0-17.5) gm/dL Hct 25.3 L 27.3 L (39.0-53.0) % RDW 15.9 H 16.2 H (11.5-15.5) % Plt Count 80 L 97 L (150-450) k/uL Neutrophils # (Manual) 0.60 L 1.00 L (1.3-7.7) k/uL Lymphocytes # (Manual) 0.27 L 0.46 L (1.0-4.8) k/uL Metamyelocytes # (Man) 0.02 H (0) k/uL INR (<1.2) APTT (22.0-30.0) sec ABG pH (7.35-7.45) ABG pCO2 (35-45) mmHg ABG pO2 (83-108) mmHg ABG HCO3 (21-25) mmol/L ABG Total CO2 (19-24) mmol/L ABG O2 Saturation (94-97) % Chloride 109 H (98-107) mmol/L Carbon Dioxide 20 L (22-30) mmol/L BUN 84 H* (9-20) mg/dL Creatinine 2.17 H (0.66-1.25) mg/dL Glucose 126 H (74-99) mg/dL Calcium 5.6 L* (8.4-10.2) mg/dL Phosphorus (2.5-4.5) mg/dL AST 72 H (17-59) U/L ALT 95 H (21-72) U/L Total Protein 3.2 L (6.3-8.2) g/dL Albumin 1.6 L (3.5-5.0) g/dL Crossmatch 04/29/18 04/29/18 Range/Units 04:19 04:50 WBC (3.8-10.6) k/uL RBC (4.30-5.90) m/uL Hgb (13.0-17.5) gm/dL Hct (39.0-53.0) % RDW (11.5-15.5) % Plt Count (150-450) k/uL Neutrophils # (Manual) (1.3-7.7) k/uL Lymphocytes # (Manual) (1.0-4.8) k/uL Metamyelocytes # (Man) (0) k/uL INR (<1.2) APTT (22.0-30.0) sec ABG pH 7.50 H (7.35-7.45) ABG pCO2 29 L (35-45) mmHg ABG pO2 70 L (83-108) mmHg ABG HCO3 (21-25) mmol/L ABG Total CO2 (19-24) mmol/L ABG O2 Saturation (94-97) % Chloride 111 H (98-107) mmol/L Carbon Dioxide (22-30) mmol/L BUN 76 H (9-20) mg/dL Creatinine 2.24 H (0.66-1.25) mg/dL Glucose 106 H (74-99) mg/dL Calcium 6.9 L (8.4-10.2) mg/dL Phosphorus 5.7 H (2.5-4.5) mg/dL AST 77 H (17-59) U/L ALT 102 H (21-72) U/L Total Protein 3.5 L (6.3-8.2) g/dL Albumin 1.7 L (3.5-5.0) g/dL Crossmatch Microbiology - Last 24 Hours (Table) 04/27/18 05:50 Blood Culture - Preliminary Blood No Growth after 48 hours 04/28/18 01:30 Urine Culture - Preliminary Urine,Catheterized Assessment and Plan Plan: Assessment: 1. Acute allograft dysfunction secondary to ischemic ATN secondary to hypotension and septic shock. Creatinine peaked at 2.5 this admission and is 2.24 today. 2. Status post donor renal allograft at [facility] in 1997. 3. Recently diagnosed squamous cell carcinoma started on chemotherapy about one week prior to admission. 4. Hypotension maintained on 28 mics of Levophed. 5. Acute abdomen with free air, status post exploratory laparotomy with subtotal colectomy and ileostomy on April 28. 6. Hyperphosphatemia secondary to acute allograft dysfunction. 7. Respiratory alkalosis with metabolic acidosis. The metabolic acidosis has mostly resolved. 8. 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 Plan: Discontinue sodium bicarbonate. Maintain normal saline at 100 mL an hour. Avoid nephrotoxic agents and hypotensive episodes. Wean Levophed as able to tolerate. Continue to hold Prograf and CellCept for now. Continue to monitor renal function and urine output closely.
[2018-04-29] MEDS: IPRATROPIUM-ALBUTEROL 3 ML NEB INHALATION SCH ×3 (10:58→20:11)
--- NOTE | 2018-04-29 11:11 | P.PN ---
Subjective Progress Note Date: 04/29/18 Principal diagnosis: Sepsis Colonic obstruction The patient is postoperative day 1 from subtotal colectomy for colonic obstruction. He has remained on the ventilator with pressure support since postop. His vasopressors have improved since yesterday. Patient is currently sedated on the ventilator. Objective - Vital Signs Vital signs: Vital Signs Temp 101.2 F H 04/29/18 08:00 Pulse 85 04/29/18 11:00 Resp 22 04/29/18 11:00 BP 109/63 04/29/18 11:00 Pulse Ox 96 04/29/18 11:00 Intake & Output 04/28/18 04/29/18 04/29/18 18:59 06:59 18:59 Intake Total 7478.177 2432.041 1696.5 Output Total 888 2115 137 Balance 6590.177 498.216 3931.5 Weight 83.2 kg Intake: IV 5437.0 2126.5 1696.5 0.9 per pressure 12 39 9 ACETAMINOPHEN IV (For NPO 100 ) 1,000 mg In Empty Bag 1 bag @ 400 mls/hr IVPB Q6HR PRN Rx#:[id number] Calcium Chloride 2,000 mg 100 In Sodium Chloride 0.9% 100 ml @ 100 mls/hr IVPB ONCE STA Rx#:[id number] Dextrose 5% in Water 1, 650 150 000 ml @ 50 mls/hr IV . Q23H JENNA with Sodium Bicarb (1 Meq/ml) 150 ml Rx#:[id number] Lactated Ringers 1,000 ml 1000 @ 999 mls/hr IV .Q1H1M JENNA Rx#:[id number] Piperacillin-Tazobactam 3 25.0 37.5 37.5 .375 gm In Dextrose/Water 1 50ml.bag @ 12.5 mls/hr IVPB Q8HR [facility] Rx#: [id number] Sodium Chloride 0.9% 1, 1300 300 000 ml @ 100 mls/hr IV . Q10H JENNA Rx#:[id number] Sodium Chloride 0.9% 1, 2500 000 ml @ 500 mls/hr IV . Q2H JENNA Rx#:[id number] Sodium Chloride 0.9% 2, 2000 000 ml @ 999 mls/hr IV . Q2H1M ONE Rx#:[id number] metroNIDAZOLE-NS PMX 500 100 100 mg In Saline 1 100ml.bag @ 100 mls/hr IVPB Q8HR [facility] Rx#:[id number] Intake, IV Titration 1421.177 305.541 Amount Dextrose 5% in Water 1, 200 000 ml @ 50 mls/hr IV . Q23H JENNA with Sodium Bicarb (1 Meq/ml) 150 ml Rx#:[id number] Empty Bag 1 bag @ 3 UNIT/ 123.9 KG/MIN 434.3 mls/hr IV . Q18M ONE with Human Prothrombin Complx 3,872 unit Rx#:[id number] Norepinephrin 16 mg-0.9% 289.221 Ns Pmx 16 mg In 250 ml @ Titrate IV .Q0M [facility] Rx#: [id number] Norepinephrin 4 mg-0.9% 361.812 Ns Pmx 4 mg In 250 ml @ Titrate IV .Q0M [facility] Rx#: [id number] Piperacillin-Tazobactam 3 50 .375 gm In Dextrose/Water 1 50ml.bag @ 12.5 mls/hr IVPB Q8HR [facility] Rx#: [id number] Propofol 1,000 mg In 85.465 16.32 Empty Bag 1 bag @ Titrate IV .Q0M [facility] Rx#: [id number] Sodium Chloride 0.9% 1, 500 000 ml @ 250 mls/hr IV . Q4H [facility] Rx#:[id number] metroNIDAZOLE-NS PMX 500 100 mg In Saline 1 100ml.bag @ 100 mls/hr IVPB Q8HR [facility] Rx#:[id number] Blood Product 620 Rc As-1 Unit 310 [id number] Rc As-1 Unit 310 [id number] Output: Gastric Drainage 495 550 Urine 193 1565 137 Estimated Blood Loss 200 Other: Voiding Method Indwelling Catheter Indwelling Catheter Indwelling Catheter ABP, PAP, CO, CI - Last Documented Arterial Blood Pressure 111/55 - Constitutional Constitutional Comment(s): On ventilator sedated - Gastrointestinal Gastrointestinal Comment(s): Abdomen soft. There is minimal distention. Incision is clean dry and intact. - Labs CBC & Chem 7: 04/29/18 04:19 04/29/18 04:19 Labs: Abnormal Lab Results - Last 24 Hours (Table) 04/28/18 04/28/18 04/28/18 Range/Units 11:35 13:05 13:40 WBC 1.2 L* (3.8-10.6) k/uL RBC 2.75 L (4.30-5.90) m/uL Hgb 8.0 L (13.0-17.5) gm/dL Hct 25.3 L (39.0-53.0) % RDW (11.5-15.5) % Plt Count 94 L (150-450) k/uL Neutrophils # (Manual) 0.60 L (1.3-7.7) k/uL Lymphocytes # (Manual) 0.43 L (1.0-4.8) k/uL Metamyelocytes # (Man) (0) k/uL ABG pH 7.22 L (7.35-7.45) ABG pCO2 33 L (35-45) mmHg ABG pO2 201 H (83-108) mmHg ABG HCO3 13 L (21-25) mmol/L ABG O2 Saturation 97.7 H (94-97) % Chloride (98-107) mmol/L Carbon Dioxide (22-30) mmol/L BUN (9-20) mg/dL Creatinine (0.66-1.25) mg/dL Glucose (74-99) mg/dL Calcium (8.4-10.2) mg/dL Phosphorus (2.5-4.5) mg/dL AST (17-59) U/L ALT (21-72) U/L Total Protein (6.3-8.2) g/dL Albumin (3.5-5.0) g/dL Crossmatch See Detail 04/28/18 04/28/18 04/28/18 Range/Units 13:41 17:31 17:31 WBC 1.0 L* (3.8-10.6) k/uL RBC 2.74 L (4.30-5.90) m/uL Hgb 8.2 L (13.0-17.5) gm/dL Hct 25.3 L (39.0-53.0) % RDW 15.9 H (11.5-15.5) % Plt Count 80 L (150-450) k/uL Neutrophils # (Manual) 0.60 L (1.3-7.7) k/uL Lymphocytes # (Manual) 0.27 L (1.0-4.8) k/uL Metamyelocytes # (Man) 0.02 H (0) k/uL ABG pH (7.35-7.45) ABG pCO2 (35-45) mmHg ABG pO2 244 H (83-108) mmHg ABG HCO3 20 L (21-25) mmol/L ABG O2 Saturation 98.4 H (94-97) % Chloride 109 H (98-107) mmol/L Carbon Dioxide 20 L (22-30) mmol/L BUN 84 H* (9-20) mg/dL Creatinine 2.17 H (0.66-1.25) mg/dL Glucose 126 H (74-99) mg/dL Calcium 5.6 L* (8.4-10.2) mg/dL Phosphorus (2.5-4.5) mg/dL AST 72 H (17-59) U/L ALT 95 H (21-72) U/L Total Protein 3.2 L (6.3-8.2) g/dL Albumin 1.6 L (3.5-5.0) g/dL Crossmatch 04/29/18 04/29/18 04/29/18 Range/Units 04:19 04:19 04:50 WBC 1.6 L* (3.8-10.6) k/uL RBC 2.99 L (4.30-5.90) m/uL Hgb 8.6 L (13.0-17.5) gm/dL Hct 27.3 L (39.0-53.0) % RDW 16.2 H (11.5-15.5) % Plt Count 97 L (150-450) k/uL Neutrophils # (Manual) 1.00 L (1.3-7.7) k/uL Lymphocytes # (Manual) 0.46 L (1.0-4.8) k/uL Metamyelocytes # (Man) (0) k/uL ABG pH 7.50 H (7.35-7.45) ABG pCO2 29 L (35-45) mmHg ABG pO2 70 L (83-108) mmHg ABG HCO3 (21-25) mmol/L ABG O2 Saturation (94-97) % Chloride 111 H (98-107) mmol/L Carbon Dioxide (22-30) mmol/L BUN 76 H (9-20) mg/dL Creatinine 2.24 H (0.66-1.25) mg/dL Glucose 106 H (74-99) mg/dL Calcium 6.9 L (8.4-10.2) mg/dL Phosphorus 5.7 H (2.5-4.5) mg/dL AST 77 H (17-59) U/L ALT 102 H (21-72) U/L Total Protein 3.5 L (6.3-8.2) g/dL Albumin 1.7 L (3.5-5.0) g/dL Crossmatch Microbiology - Last 24 Hours (Table) 04/27/18 05:50 Blood Culture - Preliminary Blood No Growth after 48 hours 04/28/18 01:30 Urine Culture - Preliminary Urine,Catheterized Assessment and Plan Assessment: Status post subtotal colectomy for colonic obstruction with toxic megacolon. Patient is extremely high risk. I had a lengthy discussion with the patient's daughter that he has a very high mortality. The patient will be optimally medically managed. Dr. Delvalle seeing him today. I suspect that he will be on the ventilator for quite some time. His condition is extremely guarded.
[2018-04-29 11:20] VITALS: BMI 27.1
--- NOTE | 2018-04-29 11:33 | P.PN ---
Subjective Progress Note Date: 04/29/18 Principal diagnosis: HPI: This is a 72-year-old white male who came into the emergency room that he had been constipated since Wednesday morning. He was in the ER 3 days prior for similar problems. He was discharged home and came back. He now has some coffee ground emesis. An x-ray shows small bowel obstruction in which he was admitted and surgical services was put on. Patient did have cramping, films of the abdomen, moderate severity was not region was diffuse across his abdomen had some nausea and vomiting, NG tube was placed in the ER. this patient was initially initially admitted on the medical floor where he developed problems with hypotension and was transferred to the ICU patient was resuscitated with fluid with continuation of the hypertension also in the interim found to have a worsening of abdominal discomfort and pain, patient has been given crystalloids and eventually was started on vasopressors. patient was tachypneic tachycardic respiratory rate as well as mid 30s heart rate was 100 210 patient continued to complain of abdominal discomfort and pain he is been on 15 L high flow oxygen with saturation in low 90s and has very ill-looking appearance decision was made to intubate patient electively for airway protection also notify surgical service for evaluation. Of note he has a lump found on the left axilla eventually with a diagnosis of squamous cell cancer of unknown etiology or unknown primary patient has been currently on chemotherapy by Dr. Velásquez Interval history 04/29/18- this patient is being seen examined and evaluated today. He continues on mechanical ventilation with propofol for sedation. Currently the patient is also on Levophed vasopressor, who is also getting D5 with 3 A of bicarb. Nephrology is also on the case. Objective - Vital Signs Vital signs: Vital Signs Temp 101.2 F H 04/29/18 08:00 Pulse 81 04/29/18 11:20 Resp 22 04/29/18 11:00 BP 109/63 04/29/18 11:00 Pulse Ox 96 04/29/18 11:00 Intake & Output 04/28/18 04/29/18 04/29/18 18:59 06:59 18:59 Intake Total 7478.177 2432.041 1696.5 Output Total 888 2115 137 Balance 6590.177 933.281 2542.5 Weight 83.2 kg 83.2 kg Intake: IV 5437.0 2126.5 1696.5 0.9 per pressure 12 39 9 ACETAMINOPHEN IV (For NPO 100 ) 1,000 mg In Empty Bag 1 bag @ 400 mls/hr IVPB Q6HR PRN Rx#:[id number] Calcium Chloride 2,000 mg 100 In Sodium Chloride 0.9% 100 ml @ 100 mls/hr IVPB ONCE STA Rx#:[id number] Dextrose 5% in Water 1, 650 150 000 ml @ 50 mls/hr IV . Q23H JENNA with Sodium Bicarb (1 Meq/ml) 150 ml Rx#:[id number] Lactated Ringers 1,000 ml 1000 @ 999 mls/hr IV .Q1H1M [facility] Rx#:[id number] Piperacillin-Tazobactam 3 25.0 37.5 37.5 .375 gm In Dextrose/Water 1 50ml.bag @ 12.5 mls/hr IVPB Q8HR [facility] Rx#: [id number] Sodium Chloride 0.9% 1, 1300 300 000 ml @ 100 mls/hr IV . Q10H [facility] Rx#:[id number] Sodium Chloride 0.9% 1, 2500 000 ml @ 500 mls/hr IV . Q2H [facility] Rx#:[id number] Sodium Chloride 0.9% 2, 2000 000 ml @ 999 mls/hr IV . Q2H1M ONE Rx#:[id number] metroNIDAZOLE-NS PMX 500 100 100 mg In Saline 1 100ml.bag @ 100 mls/hr IVPB Q8HR [facility] Rx#:[id number] Intake, IV Titration 1421.177 305.541 Amount Dextrose 5% in Water 1, 200 000 ml @ 50 mls/hr IV . Q23H JENNA with Sodium Bicarb (1 Meq/ml) 150 ml Rx#:[id number] Empty Bag 1 bag @ 3 UNIT/ 123.9 KG/MIN 434.3 mls/hr IV . Q18M ONE with Human Prothrombin Complx 3,872 unit Rx#:[id number] Norepinephrin 16 mg-0.9% 289.221 Ns Pmx 16 mg In 250 ml @ Titrate IV .Q0M [facility] Rx#: [id number] Norepinephrin 4 mg-0.9% 361.812 Ns Pmx 4 mg In 250 ml @ Titrate IV .Q0M [facility] Rx#: [id number] Piperacillin-Tazobactam 3 50 .375 gm In Dextrose/Water 1 50ml.bag @ 12.5 mls/hr IVPB Q8HR [facility] Rx#: [id number] Propofol 1,000 mg In 85.465 16.32 Empty Bag 1 bag @ Titrate IV .Q0M [facility] Rx#: [id number] Sodium Chloride 0.9% 1, 500 000 ml @ 250 mls/hr IV . Q4H [facility] Rx#:[id number] metroNIDAZOLE-NS PMX 500 100 mg In Saline 1 100ml.bag @ 100 mls/hr IVPB Q8HR [facility] Rx#:[id number] Blood Product 620 Rc As-1 Unit 310 [id number] Rc As-1 Unit 310 [id number] Output: Gastric Drainage 495 550 Urine 193 1565 137 Estimated Blood Loss 200 Other: Voiding Method Indwelling Catheter Indwelling Catheter Indwelling Catheter ABP, PAP, CO, CI - Last Documented Arterial Blood Pressure 111/55 - Labs CBC & Chem 7: 04/29/18 04:19 04/29/18 04:19 Labs: Abnormal Lab Results - Last 24 Hours (Table) 04/28/18 04/28/18 04/28/18 Range/Units 11:35 13:05 13:40 WBC 1.2 L* (3.8-10.6) k/uL RBC 2.75 L (4.30-5.90) m/uL Hgb 8.0 L (13.0-17.5) gm/dL Hct 25.3 L (39.0-53.0) % RDW (11.5-15.5) % Plt Count 94 L (150-450) k/uL Neutrophils # (Manual) 0.60 L (1.3-7.7) k/uL Lymphocytes # (Manual) 0.43 L (1.0-4.8) k/uL Metamyelocytes # (Man) (0) k/uL ABG pH 7.22 L (7.35-7.45) ABG pCO2 33 L (35-45) mmHg ABG pO2 201 H (83-108) mmHg ABG HCO3 13 L (21-25) mmol/L ABG O2 Saturation 97.7 H (94-97) % Chloride (98-107) mmol/L Carbon Dioxide (22-30) mmol/L BUN (9-20) mg/dL Creatinine (0.66-1.25) mg/dL Glucose (74-99) mg/dL Calcium (8.4-10.2) mg/dL Phosphorus (2.5-4.5) mg/dL AST (17-59) U/L ALT (21-72) U/L Total Protein (6.3-8.2) g/dL Albumin (3.5-5.0) g/dL Crossmatch See Detail 04/28/18 04/28/18 04/28/18 Range/Units 13:41 17:31 17:31 WBC 1.0 L* (3.8-10.6) k/uL RBC 2.74 L (4.30-5.90) m/uL Hgb 8.2 L (13.0-17.5) gm/dL Hct 25.3 L (39.0-53.0) % RDW 15.9 H (11.5-15.5) % Plt Count 80 L (150-450) k/uL Neutrophils # (Manual) 0.60 L (1.3-7.7) k/uL Lymphocytes # (Manual) 0.27 L (1.0-4.8) k/uL Metamyelocytes # (Man) 0.02 H (0) k/uL ABG pH (7.35-7.45) ABG pCO2 (35-45) mmHg ABG pO2 244 H (83-108) mmHg ABG HCO3 20 L (21-25) mmol/L ABG O2 Saturation 98.4 H (94-97) % Chloride 109 H (98-107) mmol/L Carbon Dioxide 20 L (22-30) mmol/L BUN 84 H* (9-20) mg/dL Creatinine 2.17 H (0.66-1.25) mg/dL Glucose 126 H (74-99) mg/dL Calcium 5.6 L* (8.4-10.2) mg/dL Phosphorus (2.5-4.5) mg/dL AST 72 H (17-59) U/L ALT 95 H (21-72) U/L Total Protein 3.2 L (6.3-8.2) g/dL Albumin 1.6 L (3.5-5.0) g/dL Crossmatch 04/29/18 04/29/18 04/29/18 Range/Units 04:19 04:19 04:50 WBC 1.6 L* (3.8-10.6) k/uL RBC 2.99 L (4.30-5.90) m/uL Hgb 8.6 L (13.0-17.5) gm/dL Hct 27.3 L (39.0-53.0) % RDW 16.2 H (11.5-15.5) % Plt Count 97 L (150-450) k/uL Neutrophils # (Manual) 1.00 L (1.3-7.7) k/uL Lymphocytes # (Manual) 0.46 L (1.0-4.8) k/uL Metamyelocytes # (Man) (0) k/uL ABG pH 7.50 H (7.35-7.45) ABG pCO2 29 L (35-45) mmHg ABG pO2 70 L (83-108) mmHg ABG HCO3 (21-25) mmol/L ABG O2 Saturation (94-97) % Chloride 111 H (98-107) mmol/L Carbon Dioxide (22-30) mmol/L BUN 76 H (9-20) mg/dL Creatinine 2.24 H (0.66-1.25) mg/dL Glucose 106 H (74-99) mg/dL Calcium 6.9 L (8.4-10.2) mg/dL Phosphorus 5.7 H (2.5-4.5) mg/dL AST 77 H (17-59) U/L ALT 102 H (21-72) U/L Total Protein 3.5 L (6.3-8.2) g/dL Albumin 1.7 L (3.5-5.0) g/dL Crossmatch Microbiology - Last 24 Hours (Table) 04/27/18 05:50 Blood Culture - Preliminary Blood No Growth after 48 hours 04/28/18 01:30 Urine Culture - Preliminary Urine,Catheterized Assessment and Plan Assessment: Assessment Acute bowel obstruction with sepsis and septic shock Suspect secondary peritonitis related to bowel obstruction Bowel perforation less likely Acute hypoxic respirator failure related to acute lung injury related to overwhelming sepsis and septic shock Squamous cell cancer of unknown primary Hemetemesis and upper GI bleed Chronic atrial fibrillation on anticoagulation 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 Delvalle Aggressive fluid resuscitation Vasopressors for hypotension, wean as tolerated Propofol for sedation Broad-spectrum antibiotics Continue to monitor I and O's Appreciate recommendations from oncology, nephrology, surgical services, and pulmonary GI and DVT prophylaxis Surgery to evaluate pressure patient further for exploratory laparotomy Further recommendations pending plan of care as per clinical response of the patient We are providing coverage for Dr. Ibanez. I performed an examination of the patient and discussed their management with the nurse practitioner. I have reviewed the nurse practitioner's note and agree with the documented findings and plan of care.
[2018-04-29] MEDS: NOREPINEPHRIN 16 MG-0.9%NS PMX 16 MG/250 ML ML IV SCH ×2 (11:37→20:48)
[2018-04-29] MEDS: PROPOFOL 1,000 MG in EMPTY BAG 1 BAG IV SCH ×2 (12:07→19:36)
[2018-04-29] MEDS: DEXTROSE 5% IN WATER 1,000 ML with SODIUM BICARB (1 MEQ/ML) 150 ML IV SCH (12:16)
[2018-04-29 14:08] LABS: Ionized Calcium 4.4 mg/dL (4.5-5.3)
[2018-04-29] MEDS: SODIUM CHLORIDE 0.9% 1,000 ML IV SCH (14:56)
[2018-04-29] MEDS ORDERED: PARENTERAL ELECTROLYTES 20 ML, MVI, ADULT NO.4 WITH VIT K 10 ML, TRACE (CONC-1ML/DOSE) ... IV SCH ×4 (15:00)
[2018-04-29] MEDS ORDERED: MVI, ADULT NO.4 WITH VIT K 10 ML, TRACE (CONC-1ML/DOSE) 1 ML, SODIUM ACETATE 30 MEQ, PO... IV SCH ×7 (16:00)
[2018-04-29 18:10] LABS: Glucose,Whole Blood 108 mg/dL (75-99)
[2018-04-30 00:12] LABS: Glucose,Whole Blood 144 mg/dL (75-99)
[2018-04-30] MEDS: PROPOFOL 1,000 MG in EMPTY BAG 1 BAG IV SCH ×4 (00:12→22:29)
[2018-04-30] MEDS: IPRATROPIUM-ALBUTEROL 3 ML NEB INHALATION SCH ×6 (00:14→20:10)
[2018-04-30] MEDS: metroNIDAZOLE-NS PMX 500 MG in SALINE 1 100ML.BAG IVPB SCH ×4 (00:15→23:16)
[2018-04-30] MEDS: PIPERACILLIN-TAZOBACTAM 3.375 GM in DEXTROSE/WATER 1 50ML.BAG IVPB SCH ×4 (00:15→23:15)
[2018-04-30] MEDS: MORPHINE SULFATE 2 MG/ML SYRINGE IV PRN (03:45)
[2018-04-30 04:54] LABS: HGB 7.3 gm/dL (13.0-17.5); Hypochromasia Marked; MCH 28.6 pg (25.0-35.0); MCHC 30.4 g/dL (31.0-37.0); MCV 94.1 fL (80.0-100.0); Mean Platelet Volume 8.7; RBC 2.55 m/uL (4.30-5.90); RDW 15.9 % (11.5-15.5); WBC 4.6 k/uL (3.8-10.6)
[2018-04-30 04:57] LABS: Platelet Count 86 k/uL (150-450)
[2018-04-30 05:03] LABS: Calcium 7.3 mg/dL (8.4-10.2); Magnesium 2.4 mg/dL (1.6-2.3); Phosphorus 6.3 mg/dL (2.5-4.5); Potassium 4.1 mmol/L (3.5-5.1)
[2018-04-30 05:17] LABS: Band Neutrophils % 15 %; Eosinophils # (M) 0.09 k/uL (0-0.7); Monocytes # (M) 0.18 k/uL (0-1.0); Neutrophils % (M) 66 %; Nucleated Red Blood Cells 0 /100 WBC (0-0); Total Cells Counted 100
[2018-04-30 05:22] LABS: Crenated RBC Present; Poikilocytosis (M) Present
[2018-04-30 05:24] LABS: Spherocytes Present
[2018-04-30 05:27] LABS: Glucose,Whole Blood 140 mg/dL (75-99)
[2018-04-30 05:28] LABS: ABG Base Excess -1.7 mmol/L; ABG HCO3 24 mmol/L (21-25); ABG Oxygen Saturation 96.2 % (94-97); ABG PCO2 41 mmHg (35-45); ABG PH 7.37 (7.35-7.45); ABG PO2 88 mmHg (83-108); ABG TCO2 25 mmol/L (19-24)
[2018-04-30] MEDS: NOREPINEPHRIN 16 MG-0.9%NS PMX 16 MG/250 ML ML IV SCH ×2 (05:42→16:24)
[2018-04-30] MEDS: SODIUM CHLORIDE 0.9% 1,000 ML IV SCH ×4 (06:20→17:08)
--- NOTE | 2018-04-30 07:08 | XR ---
EXAMINATION: XR chest 1V portable DATE AND TIME: 04/30/2018 4:21 AM ORDERING PROVIDER: Lyle Gordon CLINICAL INDICATION: Tube placement TECHNIQUE: AP upright portable COMPARISON: 04/29/2018 at 6:21 AM DESCRIPTION: ET tube tip superimposing the mid trachea. Left IJ central line tip superimposed over th e junction of the SVC with the azygos. NG tube present, with its port approximately 3 cm above the ex pected position of the esophagogastric junction, the NG tube may be better placed 7 to 10 cm distally . There is evidence of bilateral pleural effusions, moderate on the right and relatively mild on the le ft. There is bilateral airlessness within the lower lobes, marked on the right and moderate on the le ft. There is no definite pneumothorax. The mid and upper lungs are unremarkable, no alma evidence of pulmonary edema. Marked enlargement of the cardiac silhouette redemonstrated. Bones and soft tissues unremarkable for acute findings. IMPRESSION: 1. NG tube present, with its port approximately 3 cm above the expected position of the esophagogast jaylen junction, the NG tube may be better placed 7 to 10 cm distally. 2. Bilateral pleural effusions and bilateral lower lobe airlessness; changes are greater on the righ t.
--- NOTE | 2018-04-30 08:19 | P.PN ---
Subjective Progress Note Date: 04/30/18 Principal diagnosis: Acute bowel obstruction with sepsis and septic shock, acute hypoxic respiratory failure related to acute lung injury secondary to overwhelming sepsis 73-year-old male well-known to me patient has been admitted into the hospital with abdominal discomfort and pain and severe constipation symptoms started about 4-5 days ago patient has similar episode about 3 days ago was presented into the emergency department and was evaluated subsequently discharged and came back again with coffee-ground emesis constipation abdominal discomfort and pain of crampiness, this patient was initially initially admitted on the medical floor where he developed problems with hypotension and was transferred to the ICU patient was resuscitated with fluid with continuation of the hypertension also in the interim found to have a worsening of abdominal discomfort and pain, patient has been given crystalloids and eventually was started on vasopressors. During my evaluation patient was tachypneic tachycardic respiratory rate as well as mid 30s heart rate was 100 210 patient continued to complain of abdominal discomfort and pain he is been on 15 L high flow oxygen with saturation in low 90s and has very ill-looking appearance decision was made to intubate patient electively for airway protection also notify surgical service for evaluation with a repeat computed tomography scan of the abdominal and pelvis and compared with the one performed yesterday. This patient is well-known to me for the lump found on the left axilla eventually with a diagnosis of squamous cell cancer of unknown etiology or unknown primary patient has been currently on chemotherapy by Dr. Velásquez, patient also has probable problems with chronic atrial fibrillation and congestive heart failure and history of renal transplant and has been on immunosuppressive agent Laboratory data radiographic studies reviewed care plan discussed with oncology service as well On 04/29/2018 patient seen again in intensive care unit. Patient is status post exploratory laparotomy, and subtotal colectomy with ileostomy for toxic megacolon. Today he remains sedated, and on mechanical ventilation, with vent settings of assist control mode with a rate of 22, tidal volume of 450, FiO2 50% , and PEEP of 5, morning blood gases were reviewed, and showed pO2 of 70, pCO2 of 29, and pH of 7.50, consistent with primary respiratory alkalosis. Today's chest x-ray has been reviewed by Dr. Delvalle, and it showed blunting of the right costophrenic angle, and some volume loss in the right lower lobe, and right basilar atelectasis/infiltrate. Patient was aggressively resuscitated with 8 L of crystalloids yesterday, he is receiving another liter of lactated Ringer's today for hypotension. His maintenance IV fluids is D5 W with 3 A of bicarb at a rate of 50 ML per hour, 0.9 normal saline at a rate of 100 ML per hour. Norepinephrine is infusing at a rate of 28 mics per minute, propofol at 25 mics per kilo per minute. Lung sounds are positive for coarse breath sounds bilaterally. Patient has a orogastric tube in place, 2 low intermittent suction. Mid abdominal incision is clean dry and intact, well approximated, right lower abdominal ileostomy is without any gas or stool. Today's labs were reviewed, and the PVCs 1.6, hemoglobin is 8.6, platelet count is 97, serum sodium is 143, potassium is 4.3, chloride is 111, renal profile with BUN 76, creatinine is 2.24. Patient has been started on Xarxio for medical oncology. Antibiotic coverage includes Zosyn, Flagyl, and vancomycin. Blood culture shows no growth to date, urine culture is pending. Patient did have a fever of 101.2F yesterday, and again this morning. No significant endotracheal secretions. The patient is seen again today 04/30/2018 in follow-up in the intensive care unit. We're covering for Dr. Gordon today. The patient remains intubated and on mechanical ventilator with current settings assist-control 22, tidal volume 450 , FiO2 80% and a PEEP of 5. Morning blood gases reveal a P O2 of 88, pCO2 41, pH 7.37. He remains on drips of norepinephrine at 30 mcg/m, propofol at 40 mcg/ kg/m, 0.9% normal saline at 100 ML's per hour. TPN at 30 MLS per hour. Nasogastric tube remains in place. Morning chest x-ray reveals bilateral pleural effusions with lower lobe loss of volume right greater than left. Blood cultures are revealing no growth to date. Urine culture reveals no growth. White count 4.6. Hemoglobin 7.3. Platelet count 86,000. Creatinine 2.50. Abdominal dressing is dry and intact. Ileostomy with minimal output. Current temperature 99.0. Mean arterial pressures in this low 70s. Objective - Vital Signs Vital signs: Vital Signs Temp 99 F 04/30/18 06:00 Pulse 74 04/30/18 07:53 Resp 20 04/30/18 06:00 BP 95/59 04/30/18 06:00 Pulse Ox 95 04/30/18 06:00 Intake & Output 04/29/18 04/30/18 04/30/18 18:59 06:59 18:59 Intake Total 3858.929 1262.323 Output Total 1214 2050 Balance 2644.929 -787.677 Weight 83.2 kg 84.4 kg Intake: IV 2460.0 691.5 0.9 per pressure 30 69 ACETAMINOPHEN IV (For NPO 100 ) 1,000 mg In Empty Bag 1 bag @ 400 mls/hr IVPB Q6HR PRN Rx#:[id number] Dextrose 5% in Water 1, 200 000 ml @ 50 mls/hr IV . Q23H [facility] with Sodium Bicarb (1 Meq/ml) 150 ml Rx#:[id number] Lactated Ringers 1,000 ml 1000 @ 999 mls/hr IV .Q1H1M [facility] Rx#:[id number] Mvi, Adult No.4 with Vit 30 360 K 10 ml Trace (Conc-1Ml/ Dose) 1 ml Sodium Acetate 30 meq Potassium Chloride 20 meq Magnesium Sulfate 5 meq Calcium Chloride 350 mg In Amino Acid 5%-D15w 1,000 ml @ 30 mls/hr IV .Q24H [facility] Rx #:[id number] Piperacillin-Tazobactam 3 100.0 62.5 .375 gm In Dextrose/Water 1 50ml.bag @ 12.5 mls/hr IVPB Q8HR [facility] Rx#: [id number] Sodium Chloride 0.9% 1, 800 100 000 ml @ 100 mls/hr IV . Q10H [facility] Rx#:[id number] metroNIDAZOLE-NS PMX 500 200 100 mg In Saline 1 100ml.bag @ 100 mls/hr IVPB Q8HR [facility] Rx#:[id number] Intake, IV Titration 1398.929 570.823 Amount Lactated Ringers 1,000 ml 1000 @ 999 mls/hr IV .Q1H1M [facility] Rx#:[id number] Norepinephrin 16 mg-0.9% 215.249 387.563 Ns Pmx 16 mg In 250 ml @ Titrate IV .Q0M [facility] Rx#: [id number] Propofol 1,000 mg In 183.68 183.26 Empty Bag 1 bag @ Titrate IV .Q0M [facility] Rx#: [id number] Output: Gastric Drainage 500 1200 Urine 714 850 Other: Voiding Method Indwelling Catheter Indwelling Catheter # Voids 1 ABP, PAP, CO, CI - Last Documented Arterial Blood Pressure 89/49 - Exam - Constitutional General appearance: average body habitus, 73-year-old white male, sedated, on mechanical ventilation - EENT Eyes: PERRLA, poor dentition, normal appearance ENT: hard of hearing Ears: bilateral: normal - Neck Neck: normal ROM Carotids: bilateral: upstroke normal, bruit absent Thyroid: bilateral: normal size - Respiratory Respiratory: bilateral: Coarse lung sounds noted bilaterally, negative: dullness , rales, rhonchi, wheezing - Cardiovascular Heart sounds: normal: S1, S2 - Gastrointestinal Diffuse distention with tenderness and hypoactive bowel sounds. Mid abdominal incision is covered with a surgical dressing, clean dry and intact, approximated , there is a right lower quadrant ileostomy, with no gas or stool General gastrointestinal: absent bowel sounds, distended, tenderness - Integumentary Integumentary: decreased turgor - Neurologic Neurologic: CNII-XII intact - Musculoskeletal Musculoskeletal: gait normal, generalized weakness, strength equal bilaterally - Psychiatric Psychiatric: unable to assess, patient is sedated on mechanical ventilation. - Labs CBC & Chem 7: 04/30/18 04:40 04/30/18 04:40 Labs: Abnormal Lab Results - Last 24 Hours (Table) 04/29/18 04/29/18 04/30/18 Range/Units 13:35 18:07 00:10 RBC (4.30-5.90) m/uL Hgb (13.0-17.5) gm/dL Hct (39.0-53.0) % MCHC (31.0-37.0) g/dL RDW (11.5-15.5) % Plt Count (150-450) k/uL Lymphocytes # (Manual) (1.0-4.8) k/uL ABG Total CO2 (19-24) mmol/L Chloride (98-107) mmol/L BUN (9-20) mg/dL Creatinine (0.66-1.25) mg/dL Glucose (74-99) mg/dL POC Glucose (mg/dL) 108 H 144 H (75-99) mg/dL Calcium (8.4-10.2) mg/dL Ionized Calcium Micky 4.4 L (4.5-5.3) mg/dL Phosphorus (2.5-4.5) mg/dL Magnesium (1.6-2.3) mg/dL Triglycerides 342 H (<150) mg/dL 04/30/18 04/30/18 04/30/18 Range/Units 04:40 04:40 05:26 RBC 2.55 L (4.30-5.90) m/uL Hgb 7.3 L (13.0-17.5) gm/dL Hct 24.0 L (39.0-53.0) % MCHC 30.4 L (31.0-37.0) g/dL RDW 15.9 H (11.5-15.5) % Plt Count 86 L (150-450) k/uL Lymphocytes # (Manual) 0.60 L (1.0-4.8) k/uL ABG Total CO2 (19-24) mmol/L Chloride 113 H (98-107) mmol/L BUN 68 H (9-20) mg/dL Creatinine 2.50 H (0.66-1.25) mg/dL Glucose 132 H (74-99) mg/dL POC Glucose (mg/dL) 140 H (75-99) mg/dL Calcium 7.3 L (8.4-10.2) mg/dL Ionized Calcium Micky (4.5-5.3) mg/dL Phosphorus 6.3 H (2.5-4.5) mg/dL Magnesium 2.4 H (1.6-2.3) mg/dL Triglycerides (<150) mg/dL 04/30/18 Range/Units 05:26 RBC (4.30-5.90) m/uL Hgb (13.0-17.5) gm/dL Hct (39.0-53.0) % MCHC (31.0-37.0) g/dL RDW (11.5-15.5) % Plt Count (150-450) k/uL Lymphocytes # (Manual) (1.0-4.8) k/uL ABG Total CO2 25 H (19-24) mmol/L Chloride (98-107) mmol/L BUN (9-20) mg/dL Creatinine (0.66-1.25) mg/dL Glucose (74-99) mg/dL POC Glucose (mg/dL) (75-99) mg/dL Calcium (8.4-10.2) mg/dL Ionized Calcium Micky (4.5-5.3) mg/dL Phosphorus (2.5-4.5) mg/dL Magnesium (1.6-2.3) mg/dL Triglycerides (<150) mg/dL Microbiology - Last 24 Hours (Table) 04/27/18 05:50 Blood Culture - Preliminary Blood No Growth after 72 hours 04/28/18 01:30 Urine Culture - Final Urine,Catheterized Assessment and Plan Assessment: Assessment: Acute bowel obstruction with sepsis and septic shock, secondary to toxic megacolon, status post exploratory laparotomy, and subtotal colectomy and ileostomy, postop day 2 Suspect secondary peritonitis related to bowel obstruction, secondary to above Acute hypoxic respirator failure related to acute lung injury related to overwhelming sepsis and septic shock Acute blood loss anemia, and expected outcome of surgery, he was transfused with 2 units of PRBCs Squamous cell cancer of unknown primary Hemetemesis and upper GI bleed Chronic atrial fibrillation on anticoagulation, and the patient was administered PCC in the form of K centra prior to surgery 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 Delvalle. Chest x-ray, ABGs and labs all reviewed. We'll continue to titrate down the FiO2 will maintaining O2 saturations greater than 90%. The patient's white count has improved and he remains on Zarxio. Lovenox for DVT prophylaxis. He remains on Flagyl and vancomycin. We will continue to follow and make further recommendations based on his clinical status. Critical care time 38 minutes. I, the cosigning physician, performed a history & physical examination of the patient. Lungs sounds with few scattered rhonchi, crackles in posterior bases. Maintaining good O2 saturations in the 90s on 80% FiO2. We'll continue to titrate down.. I discussed the assessment and plan of care with my nurse practitioner, Marilynn Constantino. I attest to the above note as dictated by her. Time with Patient: Greater than 30
[2018-04-30] MEDS: ENOXAPARIN 30 MG/0.3 ML SYRINGE SQ SCH (08:37)
[2018-04-30] MEDS: PANTOPRAZOLE 40 MG/10 ML VIAL IV SCH (08:37)
[2018-04-30] MEDS: CHLORHEXIDINE GLUCONATE 15 ML CUP MUCOUS MEM SCH ×2 (08:38→21:22)
--- NOTE | 2018-04-30 09:33 | P.PN ---
Subjective Progress Note Date: 04/30/18 Principal diagnosis: Colonic obstruction The patient remains on the ventilator. He had his FiO2 increased 80% today. His vasopressors aren't approximate same level as yesterday. Objective - Vital Signs Vital signs: Vital Signs Temp 99 F 04/30/18 06:00 Pulse 78 04/30/18 08:00 Resp 20 04/30/18 08:00 BP 100/67 04/30/18 08:00 Pulse Ox 96 04/30/18 08:00 Intake & Output 04/29/18 04/30/18 04/30/18 18:59 06:59 18:59 Intake Total 3858.929 1262.323 36 Output Total 1214 2050 125 Balance 2644.929 -787.677 -89 Weight 83.2 kg 84.4 kg Intake: IV 2460.0 691.5 36 0.9 per pressure 30 69 6 ACETAMINOPHEN IV (For NPO 100 ) 1,000 mg In Empty Bag 1 bag @ 400 mls/hr IVPB Q6HR PRN Rx#:[id number] Dextrose 5% in Water 1, 200 000 ml @ 50 mls/hr IV . Q23H [facility]ENNA with Sodium Bicarb (1 Meq/ml) 150 ml Rx#:[id number] Lactated Ringers 1,000 ml 1000 @ 999 mls/hr IV .Q1H1M [facility] Rx#:[id number] Mvi, Adult No.4 with Vit 30 360 30 K 10 ml Trace (Conc-1Ml/ Dose) 1 ml Sodium Acetate 30 meq Potassium Chloride 20 meq Magnesium Sulfate 5 meq Calcium Chloride 350 mg In Amino Acid 5%-D15w 1,000 ml @ 30 mls/hr IV .Q24H [facility] Rx #:[id number] Piperacillin-Tazobactam 3 100.0 62.5 .375 gm In Dextrose/Water 1 50ml.bag @ 12.5 mls/hr IVPB Q8HR [facility] Rx#: [id number] Sodium Chloride 0.9% 1, 800 100 000 ml @ 100 mls/hr IV . Q10H [facility] Rx#:[id number] metroNIDAZOLE-NS PMX 500 200 100 mg In Saline 1 100ml.bag @ 100 mls/hr IVPB Q8HR [facility] Rx#:[id number] Intake, IV Titration 1398.929 570.823 Amount Lactated Ringers 1,000 ml 1000 @ 999 mls/hr IV .Q1H1M [facility] Rx#:[id number] Norepinephrin 16 mg-0.9% 215.249 387.563 Ns Pmx 16 mg In 250 ml @ Titrate IV .Q0M [facility] Rx#: [id number] Propofol 1,000 mg In 183.68 183.26 Empty Bag 1 bag @ Titrate IV .Q0M [facility] Rx#: [id number] Output: Gastric Drainage 500 1200 Urine 714 850 60 Stool 65 Other: Voiding Method Indwelling Catheter Indwelling Catheter # Voids 1 ABP, PAP, CO, CI - Last Documented Arterial Blood Pressure 105/52 - Gastrointestinal Gastrointestinal Comment(s): Abdomen soft. Incision is clean dry and intact. Ileostomy is pink. - Labs CBC & Chem 7: 04/30/18 04:40 04/30/18 04:40 Labs: Abnormal Lab Results - Last 24 Hours (Table) 04/29/18 04/29/18 04/30/18 Range/Units 13:35 18:07 00:10 RBC (4.30-5.90) m/uL Hgb (13.0-17.5) gm/dL Hct (39.0-53.0) % MCHC (31.0-37.0) g/dL RDW (11.5-15.5) % Plt Count (150-450) k/uL Lymphocytes # (Manual) (1.0-4.8) k/uL ABG Total CO2 (19-24) mmol/L Chloride (98-107) mmol/L BUN (9-20) mg/dL Creatinine (0.66-1.25) mg/dL Glucose (74-99) mg/dL POC Glucose (mg/dL) 108 H 144 H (75-99) mg/dL Calcium (8.4-10.2) mg/dL Ionized Calcium Micky 4.4 L (4.5-5.3) mg/dL Phosphorus (2.5-4.5) mg/dL Magnesium (1.6-2.3) mg/dL Triglycerides 342 H (<150) mg/dL 04/30/18 04/30/18 04/30/18 Range/Units 04:40 04:40 05:26 RBC 2.55 L (4.30-5.90) m/uL Hgb 7.3 L (13.0-17.5) gm/dL Hct 24.0 L (39.0-53.0) % MCHC 30.4 L (31.0-37.0) g/dL RDW 15.9 H (11.5-15.5) % Plt Count 86 L (150-450) k/uL Lymphocytes # (Manual) 0.60 L (1.0-4.8) k/uL ABG Total CO2 (19-24) mmol/L Chloride 113 H (98-107) mmol/L BUN 68 H (9-20) mg/dL Creatinine 2.50 H (0.66-1.25) mg/dL Glucose 132 H (74-99) mg/dL POC Glucose (mg/dL) 140 H (75-99) mg/dL Calcium 7.3 L (8.4-10.2) mg/dL Ionized Calcium Micky (4.5-5.3) mg/dL Phosphorus 6.3 H (2.5-4.5) mg/dL Magnesium 2.4 H (1.6-2.3) mg/dL Triglycerides (<150) mg/dL 04/30/18 Range/Units 05:26 RBC (4.30-5.90) m/uL Hgb (13.0-17.5) gm/dL Hct (39.0-53.0) % MCHC (31.0-37.0) g/dL RDW (11.5-15.5) % Plt Count (150-450) k/uL Lymphocytes # (Manual) (1.0-4.8) k/uL ABG Total CO2 25 H (19-24) mmol/L Chloride (98-107) mmol/L BUN (9-20) mg/dL Creatinine (0.66-1.25) mg/dL Glucose (74-99) mg/dL POC Glucose (mg/dL) (75-99) mg/dL Calcium (8.4-10.2) mg/dL Ionized Calcium Micky (4.5-5.3) mg/dL Phosphorus (2.5-4.5) mg/dL Magnesium (1.6-2.3) mg/dL Triglycerides (<150) mg/dL Microbiology - Last 24 Hours (Table) 04/27/18 05:50 Blood Culture - Preliminary Blood No Growth after 72 hours 04/28/18 01:30 Urine Culture - Final Urine,Catheterized Assessment and Plan Assessment: Status post subtotal colectomy for colonic obstruction. Patient condition is essentially the same as yesterday. We will continue supportive care. His condition is guarded.
[2018-04-30] MEDS ORDERED: FUROSEMIDE 10 MG/ML 10 ML VIAL IV STA (09:40)
--- NOTE | 2018-04-30 09:43 | P.PN ---
Subjective Patient is seen in follow-up for acute kidney injury and renal transplant management. Patient received a donor renal allograft in 1997 at [facility]. Prograf and CellCept are currently held due to septic shock. Patient underwent exploratory laparotomy with subtotal colectomy and ileostomy on April 28. He is currently on 30 mics of Levophed. Urine output is 30-60 mL an hour. He is receiving TPN and maintained on normal saline at 100 mL an hour. He is now requiring 100% FiO2. Vital signs are stable - on Levophed. General: The patient appeared well nourished and normally developed. NG tube in place. HEENT: Head exam is unremarkable. Neck is without jugular venous distension. LUNGS: Breath sounds decreased. Scattered rhonchi. HEART: Rate and Rhythm are regular. First and second heart sounds normal. No murmurs, rubs or gallops. ABDOMEN: Soft. Bowel sounds decreased. EXTREMITITES: No clubbing, cyanosis, or edema. Objective - Vital Signs Vital signs: Vital Signs Temp 99 F 04/30/18 06:00 Pulse 78 04/30/18 08:00 Resp 20 04/30/18 08:00 BP 100/67 04/30/18 08:00 Pulse Ox 96 04/30/18 08:00 Intake & Output 04/29/18 04/30/18 04/30/18 18:59 06:59 18:59 Intake Total 3858.929 1262.323 36 Output Total 1214 2050 125 Balance 2644.929 -787.677 -89 Weight 83.2 kg 84.4 kg Intake: IV 2460.0 691.5 36 0.9 per pressure 30 69 6 ACETAMINOPHEN IV (For NPO 100 ) 1,000 mg In Empty Bag 1 bag @ 400 mls/hr IVPB Q6HR PRN Rx#:[id number] Dextrose 5% in Water 1, 200 000 ml @ 50 mls/hr IV . Q23H [facility] with Sodium Bicarb (1 Meq/ml) 150 ml Rx#:[id number] Lactated Ringers 1,000 ml 1000 @ 999 mls/hr IV .Q1H1M [facility] Rx#:[id number] Mvi, Adult No.4 with Vit 30 360 30 K 10 ml Trace (Conc-1Ml/ Dose) 1 ml Sodium Acetate 30 meq Potassium Chloride 20 meq Magnesium Sulfate 5 meq Calcium Chloride 350 mg In Amino Acid 5%-D15w 1,000 ml @ 30 mls/hr IV .Q24H [facility] Rx #:[id number] Piperacillin-Tazobactam 3 100.0 62.5 .375 gm In Dextrose/Water 1 50ml.bag @ 12.5 mls/hr IVPB Q8HR [facility] Rx#: [id number] Sodium Chloride 0.9% 1, 800 100 000 ml @ 100 mls/hr IV . Q10H [facility] Rx#:[id number] metroNIDAZOLE-NS PMX 500 200 100 mg In Saline 1 100ml.bag @ 100 mls/hr IVPB Q8HR [facility] Rx#:[id number] Intake, IV Titration 1398.929 570.823 Amount Lactated Ringers 1,000 ml 1000 @ 999 mls/hr IV .Q1H1M [facility] Rx#:[id number] Norepinephrin 16 mg-0.9% 215.249 387.563 Ns Pmx 16 mg In 250 ml @ Titrate IV .Q0M [facility] Rx#: [id number] Propofol 1,000 mg In 183.68 183.26 Empty Bag 1 bag @ Titrate IV .Q0M [facility] Rx#: [id number] Output: Gastric Drainage 500 1200 Urine 714 850 60 Stool 65 Other: Voiding Method Indwelling Catheter Indwelling Catheter # Voids 1 ABP, PAP, CO, CI - Last Documented Arterial Blood Pressure 105/52 - Labs CBC & Chem 7: 04/30/18 04:40 04/30/18 04:40 Labs: Abnormal Lab Results - Last 24 Hours (Table) 04/29/18 04/29/18 04/30/18 Range/Units 13:35 18:07 00:10 RBC (4.30-5.90) m/uL Hgb (13.0-17.5) gm/dL Hct (39.0-53.0) % MCHC (31.0-37.0) g/dL RDW (11.5-15.5) % Plt Count (150-450) k/uL Lymphocytes # (Manual) (1.0-4.8) k/uL ABG Total CO2 (19-24) mmol/L Chloride (98-107) mmol/L BUN (9-20) mg/dL Creatinine (0.66-1.25) mg/dL Glucose (74-99) mg/dL POC Glucose (mg/dL) 108 H 144 H (75-99) mg/dL Calcium (8.4-10.2) mg/dL Ionized Calcium Micky 4.4 L (4.5-5.3) mg/dL Phosphorus (2.5-4.5) mg/dL Magnesium (1.6-2.3) mg/dL Triglycerides 342 H (<150) mg/dL 04/30/18 04/30/18 04/30/18 Range/Units 04:40 04:40 05:26 RBC 2.55 L (4.30-5.90) m/uL Hgb 7.3 L (13.0-17.5) gm/dL Hct 24.0 L (39.0-53.0) % MCHC 30.4 L (31.0-37.0) g/dL RDW 15.9 H (11.5-15.5) % Plt Count 86 L (150-450) k/uL Lymphocytes # (Manual) 0.60 L (1.0-4.8) k/uL ABG Total CO2 (19-24) mmol/L Chloride 113 H (98-107) mmol/L BUN 68 H (9-20) mg/dL Creatinine 2.50 H (0.66-1.25) mg/dL Glucose 132 H (74-99) mg/dL POC Glucose (mg/dL) 140 H (75-99) mg/dL Calcium 7.3 L (8.4-10.2) mg/dL Ionized Calcium Micky (4.5-5.3) mg/dL Phosphorus 6.3 H (2.5-4.5) mg/dL Magnesium 2.4 H (1.6-2.3) mg/dL Triglycerides (<150) mg/dL 04/30/18 Range/Units 05:26 RBC (4.30-5.90) m/uL Hgb (13.0-17.5) gm/dL Hct (39.0-53.0) % MCHC (31.0-37.0) g/dL RDW (11.5-15.5) % Plt Count (150-450) k/uL Lymphocytes # (Manual) (1.0-4.8) k/uL ABG Total CO2 25 H (19-24) mmol/L Chloride (98-107) mmol/L BUN (9-20) mg/dL Creatinine (0.66-1.25) mg/dL Glucose (74-99) mg/dL POC Glucose (mg/dL) (75-99) mg/dL Calcium (8.4-10.2) mg/dL Ionized Calcium Micky (4.5-5.3) mg/dL Phosphorus (2.5-4.5) mg/dL Magnesium (1.6-2.3) mg/dL Triglycerides (<150) mg/dL Microbiology - Last 24 Hours (Table) 04/27/18 05:50 Blood Culture - Preliminary Blood No Growth after 72 hours 04/28/18 01:30 Urine Culture - Final Urine,Catheterized Assessment and Plan Plan: Assessment: 1. Acute allograft dysfunction secondary to ischemic ATN secondary to hypotension and septic shock. Creatinine 2.5 today. 2. Status post donor renal allograft at [facility] in 1997. 3. Recently diagnosed squamous cell carcinoma started on chemotherapy about one week prior to admission. 4. Hypotension maintained on 30 mics of Levophed. 5. Acute abdomen with free air, status post exploratory laparotomy with subtotal colectomy and ileostomy on April 28. 6. Hyperphosphatemia secondary to acute allograft dysfunction. 7. Respiratory alkalosis with metabolic acidosis. Improved. 8. 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 Plan: I will decrease rate of normal saline to 50 mL an hour. Lasix 60 mg IV once today. Avoid nephrotoxic agents and hypotensive episodes. Wean Levophed and FiO2 as able to tolerate. Continue to hold Prograf and CellCept for now. Continue to monitor renal function and urine output closely. Decrease phosphorus content and TPN.
[2018-04-30] MEDS: FILGRASTIM-SNDZ 480 MCG/0.8 ML SYRINGE SQ SCH (10:10)
[2018-04-30 11:54] LABS: Glucose,Whole Blood 133 mg/dL (75-99)
[2018-04-30] MEDS ORDERED: VANCOMYCIN 1,500 MG in SODIUM CHLORIDE 0.9% 250 ML IVPB SCH (12:00)
[2018-04-30] MEDS: TACROLIMUS 1 MG CAP PO SCH (12:48)
[2018-04-30] MEDS: MYCOPHENOLATE SODIUM DR 180 MG TABLET.DR PO SCH (12:48)
--- NOTE | 2018-04-30 13:02 | PN ---
PROGRESS NOTE He remains on the vent. He is sedated at this time, does not follow any commands. He continues to require a small amount of pressors. His blood pressure is 96/56, respiratory rate 24, pulse rate 95. He is on a ventilator and intubated. O2 saturation is 93% on an FiO2 of 100%. HEENT reveals ET tube in place. Chest reveals occasional rhonchi. Cardiovascular system reveals a S1, S2. Abdomen is soft. There is trace pedal edema. LABS: Reveal a white count of 4.6, hemoglobin of 7.3. ABG showed a pH of 7.37, pCO2 41, PO2 of 88, bicarb of 25, O2 saturation of 96% on FiO2 of 80%. IMPRESSION: At this time: 1. Acute hypoxic respiratory failure with acute lung injury. 2. Sepsis with septic shock. 3. Squamous cell carcinoma, unknown primary. 4. Chronic renal failure with history of renal transplant. 5. Status post colectomy for colon obstruction and toxic megacolon. Continue mechanical ventilation and vasopressors, optimize his fluid status. Consultants input, recommendations and intervention is appreciated. MMODL / IJN: [id number] /
[2018-04-30] MEDS ORDERED: PARENTERAL ELECTROLYTES 20 ML, MVI, ADULT NO.4 WITH VIT K 10 ML, TRACE (CONC-1ML/DOSE) ... IV SCH ×4 (15:00)
[2018-04-30] MEDS ORDERED: MVI, ADULT NO.4 WITH VIT K 10 ML, TRACE (CONC-1ML/DOSE) 1 ML, SODIUM ACETATE 30 MEQ, PO... IV SCH ×7 (16:00)
[2018-04-30 16:56] LABS: Potassium 4.4 mmol/L (3.5-5.1)
[2018-04-30 17:10] LABS: Calcium 7.2 mg/dL (8.4-10.2); Magnesium 2.4 mg/dL (1.6-2.3); Phosphorus 7.4 mg/dL (2.5-4.5)
[2018-04-30 18:19] LABS: Glucose,Whole Blood 122 mg/dL (75-99)
[2018-04-30] MEDS: MVI, ADULT NO.4 WITH VIT K 10 ML, TRACE (CONC-1ML/DOSE) 1 ML, SODIUM ACETATE 20 MEQ, PO... IV SCH ×7 (18:37)
[2018-04-30] MEDS ORDERED: VANCOMYCIN 1,250 MG in SODIUM CHLORIDE 0.9% 250 ML IVPB SCH (21:00)
[2018-05-01] MEDS: IPRATROPIUM-ALBUTEROL 3 ML NEB INHALATION SCH ×4 (00:03→11:05)
[2018-05-01] MEDS: NOREPINEPHRIN 16 MG-0.9%NS PMX 16 MG/250 ML ML IV SCH ×2 (00:15→06:43)
[2018-05-01 01:51] LABS: Glucose,Whole Blood 143 mg/dL (75-99)
[2018-05-01 04:57] LABS: Calcium 7.4 mg/dL (8.4-10.2); Magnesium 2.3 mg/dL (1.6-2.3); Phosphorus 7.3 mg/dL (2.5-4.5); Potassium 4.3 mmol/L (3.5-5.1)
[2018-05-01 05:32] LABS: Anisocytosis Slight; Hypochromasia Marked; MCH 28.7 pg (25.0-35.0); MCHC 28.5 g/dL (31.0-37.0); Macrocytosis Slight; Mean Platelet Volume 8.8; RBC 2.38 m/uL (4.30-5.90); RDW 16.1 % (11.5-15.5); WBC 5.3 k/uL (3.8-10.6)
[2018-05-01 05:33] LABS: ABG Base Excess -5.3 mmol/L; ABG HCO3 22 mmol/L (21-25); ABG Oxygen Saturation 94.8 % (94-97); ABG PCO2 53 mmHg (35-45); ABG PH 7.23 (7.35-7.45); ABG PO2 79 mmHg (83-108); ABG TCO2 24 mmol/L (19-24)
[2018-05-01 05:38] LABS: Platelet Count 86 k/uL (150-450)
[2018-05-01 05:41] LABS: HGB 6.8 gm/dL (13.0-17.5)
[2018-05-01 05:43] LABS: Glucose,Whole Blood 143 mg/dL (75-99)
[2018-05-01] MEDS ORDERED: VANCOMYCIN IV PER PHARMACY 1 EACH MISC MISCELLANE PRN (07:00)
--- NOTE | 2018-05-01 07:14 | XR ---
EXAMINATION TYPE: XR chest 1V portable DATE OF EXAM: 05/01/2018 COMPARISON: 04/30/2018 HISTORY: Tube placement TECHNIQUE: Single frontal view of the chest is obtained. FINDINGS: ET and NG tubes stable. Bilateral consolidation and pleural effusion noted. Postoperative change and cardiomegaly seen. Interstitial process stable. Arthropathy of the shoulders. IMPRESSION: Bilateral pleural-parenchymal disease. Correlate for pneumonia versus CHF.
[2018-05-01 07:21] LABS: Band Neutrophils % 5 %; Lymphocytes # (M) 1.38 k/uL (1.0-4.8); Monocytes # (M) 0.27 k/uL (0-1.0); Neutrophils % (M) 64 %; Nucleated Red Blood Cells 0 /100 WBC (0-0); Total Cells Counted 100
[2018-05-01 07:22] LABS: Crenated RBC Present; Ovalocytes Present
[2018-05-01 07:23] LABS: RBC Fragments Present
[2018-05-01 07:24] LABS: Dohle Bodies Present
[2018-05-01] MEDS: PROPOFOL 1,000 MG in EMPTY BAG 1 BAG IV SCH ×2 (07:45→13:54)
[2018-05-01] MEDS: PIPERACILLIN-TAZOBACTAM 3.375 GM in DEXTROSE/WATER 1 50ML.BAG IVPB SCH (07:57)
[2018-05-01] MEDS: metroNIDAZOLE-NS PMX 500 MG in SALINE 1 100ML.BAG IVPB SCH (07:57)
[2018-05-01] MEDS: CHLORHEXIDINE GLUCONATE 15 ML CUP MUCOUS MEM SCH (08:34)
[2018-05-01] MEDS: ENOXAPARIN 30 MG/0.3 ML SYRINGE SQ SCH (08:35)
[2018-05-01] MEDS: PANTOPRAZOLE 40 MG/10 ML VIAL IV SCH (08:35)
--- NOTE | 2018-05-01 09:00 | P.PN ---
Subjective Progress Note Date: 04/30/18 The patient underwent bowel resection and is currently intubated, on the vent. Operative note was reviewed with operative findings revealing toxic megacolon Objective - Vital Signs Vital signs: Vital Signs Temp 98.4 F 05/01/18 04:00 Pulse 82 05/01/18 07:43 Resp 28 H 05/01/18 07:00 BP 119/62 05/01/18 07:00 Pulse Ox 97 05/01/18 07:00 Intake & Output 04/30/18 05/01/18 05/01/18 18:59 06:59 18:59 Intake Total 3482.00 1174.000 70.844 Output Total 1217 930 400 Balance 2265.00 244.000 -329.156 Weight 88.4 kg Intake: IV 2582.0 369.0 56 0.9 at 50 150 50 0.9 per pressure 72 69 6 Mvi, Adult No.4 with Vit 360 K 10 ml Trace (Conc-1Ml/ Dose) 1 ml Sodium Acetate 30 meq Potassium Chloride 20 meq Magnesium Sulfate 5 meq Calcium Chloride 350 mg In Amino Acid 5%-D15w 1,000 ml @ 30 mls/hr IV .Q24H [facility] Rx #:[id number] Piperacillin-Tazobactam 3 50.0 50.0 .375 gm In Dextrose/Water 1 50ml.bag @ 12.5 mls/hr IVPB Q8HR [facility] Rx#: [id number] Sodium Chloride 0.9% 2, 2000 000 ml @ 999 mls/hr IV . Q2H1M [facility] Rx#:[id number] metroNIDAZOLE-NS PMX 500 100 100 mg In Saline 1 100ml.bag @ 100 mls/hr IVPB Q8HR [facility] Rx#:[id number] Intake, IV Titration 900.00 805.000 14.844 Amount Mvi, Adult No.4 with Vit 55 K 10 ml Trace (Conc-1Ml/ Dose) 1 ml Sodium Acetate 20 meq Potassium Chloride 15 meq Magnesium Sulfate 2 meq Calcium Chloride 350 mg In Amino Acid 5%-D15w 1,000 ml @ 55 mls/hr IV .[id number] [facility] Rx#:[id number] Norepinephrin 16 mg-0.9% 250.00 500.000 14.844 Ns Pmx 16 mg In 250 ml @ Titrate IV .Q0M [facility] Rx#: [id number] Propofol 1,000 mg In 100 200.000 Empty Bag 1 bag @ Titrate IV .Q0M [facility] Rx#: [id number] Sodium Chloride 0.9% 1, 550 50 000 ml @ 50 mls/hr IV . Q20H [facility] Rx#:[id number] Output: Gastric Drainage 350 250 Urine 802 765 50 Stool 65 165 100 Other: Voiding Method Indwelling Catheter Indwelling Catheter # Voids 1 ABP, PAP, CO, CI - Last Documented Arterial Blood Pressure 117/49 - Constitutional Constitutional Comment(s): Sedated on ventilator - Respiratory Respiratory: bilateral: diminished - Cardiovascular Rhythm: irregularly irregular Heart sounds: normal: S1, S2 - Gastrointestinal General gastrointestinal: Present: absent bowel sounds - Neurologic Neurologic Comment(s): Sedated, on ventilator - Labs CBC & Chem 7: 05/01/18 04:20 05/01/18 04:20 Labs: Abnormal Lab Results - Last 24 Hours (Table) 04/28/18 04/30/18 04/30/18 Range/Units 11:35 11:53 16:28 RBC (4.30-5.90) m/uL Hgb (13.0-17.5) gm/dL Hct (39.0-53.0) % MCV (80.0-100.0) fL MCHC (31.0-37.0) g/dL RDW (11.5-15.5) % Plt Count (150-450) k/uL ABG pH (7.35-7.45) ABG pCO2 (35-45) mmHg ABG pO2 (83-108) mmHg Sodium 146 H (137-145) mmol/L Chloride 116 H (98-107) mmol/L Carbon Dioxide (22-30) mmol/L BUN 69 H (9-20) mg/dL Creatinine 3.10 H (0.66-1.25) mg/dL Glucose 119 H (74-99) mg/dL POC Glucose (mg/dL) 133 H (75-99) mg/dL Calcium 7.2 L (8.4-10.2) mg/dL Phosphorus 7.4 H (2.5-4.5) mg/dL Magnesium 2.4 H (1.6-2.3) mg/dL Crossmatch See Detail 04/30/18 05/01/18 05/01/18 Range/Units 18:07 01:49 04:20 RBC 2.38 L (4.30-5.90) m/uL Hgb 6.8 L* (13.0-17.5) gm/dL Hct 24.0 L (39.0-53.0) % MCV 101.0 H D (80.0-100.0) fL MCHC 28.5 L (31.0-37.0) g/dL RDW 16.1 H (11.5-15.5) % Plt Count 86 L (150-450) k/uL ABG pH (7.35-7.45) ABG pCO2 (35-45) mmHg ABG pO2 (83-108) mmHg Sodium (137-145) mmol/L Chloride (98-107) mmol/L Carbon Dioxide (22-30) mmol/L BUN (9-20) mg/dL Creatinine (0.66-1.25) mg/dL Glucose (74-99) mg/dL POC Glucose (mg/dL) 122 H 143 H (75-99) mg/dL Calcium (8.4-10.2) mg/dL Phosphorus (2.5-4.5) mg/dL Magnesium (1.6-2.3) mg/dL Crossmatch 05/01/18 05/01/18 05/01/18 Range/Units 04:20 05:31 05:41 RBC (4.30-5.90) m/uL Hgb (13.0-17.5) gm/dL Hct (39.0-53.0) % MCV (80.0-100.0) fL MCHC (31.0-37.0) g/dL RDW (11.5-15.5) % Plt Count (150-450) k/uL ABG pH 7.23 L (7.35-7.45) ABG pCO2 53 H (35-45) mmHg ABG pO2 79 L (83-108) mmHg Sodium 146 H (137-145) mmol/L Chloride 115 H (98-107) mmol/L Carbon Dioxide 21 L (22-30) mmol/L BUN 68 H (9-20) mg/dL Creatinine 3.50 H (0.66-1.25) mg/dL Glucose 140 H (74-99) mg/dL POC Glucose (mg/dL) 143 H (75-99) mg/dL Calcium 7.4 L (8.4-10.2) mg/dL Phosphorus 7.3 H (2.5-4.5) mg/dL Magnesium (1.6-2.3) mg/dL Crossmatch Microbiology - Last 24 Hours (Table) 04/27/18 05:50 Blood Culture - Preliminary Blood No Growth after 96 hours 04/30/18 00:37 Gram Stain - Preliminary Sputum Sputum Culture - Preliminary Assessment and Plan (1) Toxic megacolon Narrative/Plan: The patient was found to have the same, and the time of surgery. This is most likely due to neutropenic colitis. He is status post resection. The patient had developed evidence of sepsis even prior to surgery, and post surgery is in acute respiratory failure. Defer to the surgical service for postoperative care. The patient is on broad-spectrum antibiotics. Current Visit: Yes Status: Acute Code(s): K59.31 - TOXIC MEGACOLON SNOMED Code(s): 03789381 (2) Pancytopenia due to antineoplastic chemotherapy Narrative/Plan: The patient was placed on filgrastim at the time of admission. With that his WBC has recovered into the normal range. This will hopefully reduce the risk of postoperative on medications. Continue filgrastim with monitoring of his WBC. This will be discontinued when counts are stable in an appropriate range. Platelets are stable in the safe range. Hemoglobin has declined, most likely due to marrow suppression from his recent chemotherapy, as well as sepsis. There was no evidence of any obvious bleeding. Operative report did not note any major postop bleeding. Due to his ongoing severe acute illness, counts can declined further. Continue to monitor with supportive transfusions as needed. Current Visit: Yes Status: Acute Code(s): D61.810 - ANTINEOPLASTIC CHEMOTHERAPY INDUCED PANCYTOPENIA; T45.1X5A - ADVERSE EFFECT OF ANTINEOPLASTIC AND IMMUNOSUP DRUGS, INIT SNOMED Code(s): 409841389943996 (3) Septic shock Narrative/Plan: The patient had developed sepsis due to toxic megacolon, and postsurgery developed septic shock and acute respiratory failure. He is currently being managed aggressively with ventilator support and pressors. He is also on broad- spectrum antibiotics. Defer to the admitting service, and critical care medicine for continued management. Current Visit: Yes Status: Acute Code(s): A41.9 - SEPSIS, UNSPECIFIED ORGANISM; R65.21 - SEVERE SEPSIS WITH SEPTIC SHOCK SNOMED Code(s): 51365615
--- NOTE | 2018-05-01 09:31 | P.PN ---
Subjective Patient is seen in follow-up for acute kidney injury and renal transplant management. Patient received a donor renal allograft in 1997 at [facility]. Prograf and CellCept are currently held due to septic shock. Patient underwent exploratory laparotomy with subtotal colectomy and ileostomy on April 28. He was noted to have a toxic megacolon. He is currently on 47 mics of Levophed. Urine output has been about 50 mL an hour for the last few hours. He is receiving TPN and maintained on normal saline at 50 mL an hour. Hemoglobin was 6.8 for which he is receiving a unit of blood transfusion at this time as well. FiO2 is down to 80%. Vital signs are stable - on Levophed. General: The patient appeared well nourished and normally developed. NG tube in place. HEENT: Head exam is unremarkable. Neck is without jugular venous distension. LUNGS: Breath sounds decreased. Scattered rhonchi. HEART: Rate and Rhythm are regular. First and second heart sounds normal. No murmurs, rubs or gallops. ABDOMEN: Soft. Bowel sounds decreased. EXTREMITITES: No clubbing, cyanosis, or edema. Objective - Vital Signs Vital signs: Vital Signs Temp 100.3 F H 05/01/18 09:11 Pulse 82 05/01/18 09:11 Resp 29 H 05/01/18 09:11 BP 115/58 05/01/18 09:11 Pulse Ox 99 05/01/18 09:01 Intake & Output 04/30/18 05/01/18 05/01/18 18:59 06:59 18:59 Intake Total 3482.00 1174.000 70.844 Output Total 1217 930 400 Balance 2265.00 244.000 -329.156 Weight 88.4 kg Intake: IV 2582.0 369.0 56 0.9 at 50 150 50 0.9 per pressure 72 69 6 Mvi, Adult No.4 with Vit 360 K 10 ml Trace (Conc-1Ml/ Dose) 1 ml Sodium Acetate 30 meq Potassium Chloride 20 meq Magnesium Sulfate 5 meq Calcium Chloride 350 mg In Amino Acid 5%-D15w 1,000 ml @ 30 mls/hr IV .Q24H [facility] Rx #:[id number] Piperacillin-Tazobactam 3 50.0 50.0 .375 gm In Dextrose/Water 1 50ml.bag @ 12.5 mls/hr IVPB Q8HR [facility] Rx#: [id number] Sodium Chloride 0.9% 2, 2000 000 ml @ 999 mls/hr IV . Q2H1M [facility] Rx#:[id number] metroNIDAZOLE-NS PMX 500 100 100 mg In Saline 1 100ml.bag @ 100 mls/hr IVPB Q8HR [facility] Rx#:[id number] Intake, IV Titration 900.00 805.000 14.844 Amount Mvi, Adult No.4 with Vit 55 K 10 ml Trace (Conc-1Ml/ Dose) 1 ml Sodium Acetate 20 meq Potassium Chloride 15 meq Magnesium Sulfate 2 meq Calcium Chloride 350 mg In Amino Acid 5%-D15w 1,000 ml @ 55 mls/hr IV .[id number] [facility] Rx#:[id number] Norepinephrin 16 mg-0.9% 250.00 500.000 14.844 Ns Pmx 16 mg In 250 ml @ Titrate IV .Q0M [facility] Rx#: [id number] Propofol 1,000 mg In 100 200.000 Empty Bag 1 bag @ Titrate IV .Q0M [facility] Rx#: [id number] Sodium Chloride 0.9% 1, 550 50 000 ml @ 50 mls/hr IV . Q20H [facility] Rx#:[id number] Blood Product 0 Rc Pheresis 2 As3 Unit 0 [id number] Output: Gastric Drainage 350 250 Urine 802 765 50 Stool 65 165 100 Other: Voiding Method Indwelling Catheter Indwelling Catheter # Voids 1 ABP, PAP, CO, CI - Last Documented Arterial Blood Pressure 133/60 - Labs CBC & Chem 7: 05/01/18 04:20 05/01/18 04:20 Labs: Abnormal Lab Results - Last 24 Hours (Table) 04/28/18 04/30/18 04/30/18 Range/Units 11:35 11:53 16:28 RBC (4.30-5.90) m/uL Hgb (13.0-17.5) gm/dL Hct (39.0-53.0) % MCV (80.0-100.0) fL MCHC (31.0-37.0) g/dL RDW (11.5-15.5) % Plt Count (150-450) k/uL ABG pH (7.35-7.45) ABG pCO2 (35-45) mmHg ABG pO2 (83-108) mmHg Sodium 146 H (137-145) mmol/L Chloride 116 H (98-107) mmol/L Carbon Dioxide (22-30) mmol/L BUN 69 H (9-20) mg/dL Creatinine 3.10 H (0.66-1.25) mg/dL Glucose 119 H (74-99) mg/dL POC Glucose (mg/dL) 133 H (75-99) mg/dL Calcium 7.2 L (8.4-10.2) mg/dL Phosphorus 7.4 H (2.5-4.5) mg/dL Magnesium 2.4 H (1.6-2.3) mg/dL Crossmatch See Detail 04/30/18 05/01/18 05/01/18 Range/Units 18:07 01:49 04:20 RBC 2.38 L (4.30-5.90) m/uL Hgb 6.8 L* (13.0-17.5) gm/dL Hct 24.0 L (39.0-53.0) % MCV 101.0 H D (80.0-100.0) fL MCHC 28.5 L (31.0-37.0) g/dL RDW 16.1 H (11.5-15.5) % Plt Count 86 L (150-450) k/uL ABG pH (7.35-7.45) ABG pCO2 (35-45) mmHg ABG pO2 (83-108) mmHg Sodium (137-145) mmol/L Chloride (98-107) mmol/L Carbon Dioxide (22-30) mmol/L BUN (9-20) mg/dL Creatinine (0.66-1.25) mg/dL Glucose (74-99) mg/dL POC Glucose (mg/dL) 122 H 143 H (75-99) mg/dL Calcium (8.4-10.2) mg/dL Phosphorus (2.5-4.5) mg/dL Magnesium (1.6-2.3) mg/dL Crossmatch 05/01/18 05/01/18 05/01/18 Range/Units 04:20 05:31 05:41 RBC (4.30-5.90) m/uL Hgb (13.0-17.5) gm/dL Hct (39.0-53.0) % MCV (80.0-100.0) fL MCHC (31.0-37.0) g/dL RDW (11.5-15.5) % Plt Count (150-450) k/uL ABG pH 7.23 L (7.35-7.45) ABG pCO2 53 H (35-45) mmHg ABG pO2 79 L (83-108) mmHg Sodium 146 H (137-145) mmol/L Chloride 115 H (98-107) mmol/L Carbon Dioxide 21 L (22-30) mmol/L BUN 68 H (9-20) mg/dL Creatinine 3.50 H (0.66-1.25) mg/dL Glucose 140 H (74-99) mg/dL POC Glucose (mg/dL) 143 H (75-99) mg/dL Calcium 7.4 L (8.4-10.2) mg/dL Phosphorus 7.3 H (2.5-4.5) mg/dL Magnesium (1.6-2.3) mg/dL Crossmatch Microbiology - Last 24 Hours (Table) 04/27/18 05:50 Blood Culture - Preliminary Blood No Growth after 96 hours 04/30/18 00:37 Gram Stain - Preliminary Sputum Sputum Culture - Preliminary Assessment and Plan Plan: Assessment: 1. Acute allograft dysfunction secondary to ischemic ATN secondary to hypotension and septic shock. Creatinine 3.5 today. 2. Status post donor renal allograft at [facility] in 1997. 3. Recently diagnosed squamous cell carcinoma started on chemotherapy about one week prior to admission. 4. Septic shock secondary to toxic megacolon maintained on 47 mics of Levophed at this time. 5. Toxic megacolon status post exploratory laparotomy with subtotal colectomy and ileostomy on April 28. 6. Hyperphosphatemia secondary to acute allograft dysfunction. 7. Respiratory acidosis and metabolic acidosis. 8. 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 9. Acute blood loss anemia currently receiving blood transfusion. Plan: Urine output is adequate at this time - if drops, I will repeat Lasix 60 mg IV again today. Avoid nephrotoxic agents and hypotensive episodes. Wean Levophed and FiO2 as able to tolerate. Continue to hold Prograf and CellCept for now. Continue to monitor renal function and urine output closely. Decrease phosphorus content in TPN. Monitor bicarb, may need to add acetate to TPN.
[2018-05-01 09:55] VITALS: TEMP 101.2
[2018-05-01 10:12] LABS: Glucose,Whole Blood 147 mg/dL (75-99)
[2018-05-01] MEDS ORDERED: ACETAMINOPHEN IV (For NPO) 1,000 MG in EMPTY BAG 1 BAG IVPB PRN (11:20)
--- NOTE | 2018-05-01 11:58 | P.PN ---
Subjective Progress Note Date: 05/01/18 Principal diagnosis: Colonic obstruction The patient has had some dilutional anemia overnight. He is also required increasing pressor support. His overall condition has worsened slightly. Objective - Vital Signs Vital signs: Vital Signs Temp 101.2 F H 05/01/18 09:47 Pulse 84 05/01/18 11:26 Resp 30 H 05/01/18 10:00 BP 100/60 05/01/18 10:00 Pulse Ox 98 05/01/18 10:00 Intake & Output 04/30/18 05/01/18 05/01/18 18:59 06:59 18:59 Intake Total 3482.00 1174.000 413.844 Output Total 1217 930 700 Balance 2265.00 244.000 -286.156 Weight 88.4 kg 88.4 kg Intake: IV 2582.0 369.0 374 0.9 at 50 150 200 0.9 per pressure 72 69 24 Mvi, Adult No.4 with Vit 360 K 10 ml Trace (Conc-1Ml/ Dose) 1 ml Sodium Acetate 30 meq Potassium Chloride 20 meq Magnesium Sulfate 5 meq Calcium Chloride 350 mg In Amino Acid 5%-D15w 1,000 ml @ 30 mls/hr IV .Q24H [facility] Rx #:[id number] Piperacillin-Tazobactam 3 50.0 50.0 50 .375 gm In Dextrose/Water 1 50ml.bag @ 12.5 mls/hr IVPB Q8HR [facility] Rx#: [id number] Sodium Chloride 0.9% 2, 2000 000 ml @ 999 mls/hr IV . Q2H1M [facility] Rx#:[id number] metroNIDAZOLE-NS PMX 500 100 100 100 mg In Saline 1 100ml.bag @ 100 mls/hr IVPB Q8HR [facility] Rx#:[id number] Intake, IV Titration 900.00 805.000 14.844 Amount Mvi, Adult No.4 with Vit 55 K 10 ml Trace (Conc-1Ml/ Dose) 1 ml Sodium Acetate 20 meq Potassium Chloride 15 meq Magnesium Sulfate 2 meq Calcium Chloride 350 mg In Amino Acid 5%-D15w 1,000 ml @ 55 mls/hr IV .[id number] [facility] Rx#:[id number] Norepinephrin 16 mg-0.9% 250.00 500.000 14.844 Ns Pmx 16 mg In 250 ml @ Titrate IV .Q0M [facility] Rx#: [id number] Propofol 1,000 mg In 100 200.000 Empty Bag 1 bag @ Titrate IV .Q0M [facility] Rx#: [id number] Sodium Chloride 0.9% 1, 550 50 000 ml @ 50 mls/hr IV . Q20H [facility] Rx#:[id number] Blood Product 25 Rc Pheresis 2 As3 Unit 25 [id number] Output: Gastric Drainage 350 350 Urine 802 765 250 Stool 65 165 100 Other: Voiding Method Indwelling Catheter Indwelling Catheter Indwelling Catheter # Voids 1 ABP, PAP, CO, CI - Last Documented Arterial Blood Pressure 117/61 - Constitutional Constitutional Comment(s): On ventilator - Gastrointestinal Gastrointestinal Comment(s): Abdomen soft. There is no significant distention. Ileostomy is pink with minimal output. - Labs CBC & Chem 7: 05/01/18 04:20 05/01/18 04:20 Labs: Abnormal Lab Results - Last 24 Hours (Table) 04/28/18 04/30/18 04/30/18 Range/Units 11:35 16:28 18:07 RBC (4.30-5.90) m/uL Hgb (13.0-17.5) gm/dL Hct (39.0-53.0) % MCV (80.0-100.0) fL MCHC (31.0-37.0) g/dL RDW (11.5-15.5) % Plt Count (150-450) k/uL ABG pH (7.35-7.45) ABG pCO2 (35-45) mmHg ABG pO2 (83-108) mmHg Sodium 146 H (137-145) mmol/L Chloride 116 H (98-107) mmol/L Carbon Dioxide (22-30) mmol/L BUN 69 H (9-20) mg/dL Creatinine 3.10 H (0.66-1.25) mg/dL Glucose 119 H (74-99) mg/dL POC Glucose (mg/dL) 122 H (75-99) mg/dL Calcium 7.2 L (8.4-10.2) mg/dL Phosphorus 7.4 H (2.5-4.5) mg/dL Magnesium 2.4 H (1.6-2.3) mg/dL Crossmatch See Detail 05/01/18 05/01/18 05/01/18 Range/Units 01:49 04:20 04:20 RBC 2.38 L (4.30-5.90) m/uL Hgb 6.8 L* (13.0-17.5) gm/dL Hct 24.0 L (39.0-53.0) % MCV 101.0 H D (80.0-100.0) fL MCHC 28.5 L (31.0-37.0) g/dL RDW 16.1 H (11.5-15.5) % Plt Count 86 L (150-450) k/uL ABG pH (7.35-7.45) ABG pCO2 (35-45) mmHg ABG pO2 (83-108) mmHg Sodium 146 H (137-145) mmol/L Chloride 115 H (98-107) mmol/L Carbon Dioxide 21 L (22-30) mmol/L BUN 68 H (9-20) mg/dL Creatinine 3.50 H (0.66-1.25) mg/dL Glucose 140 H (74-99) mg/dL POC Glucose (mg/dL) 143 H (75-99) mg/dL Calcium 7.4 L (8.4-10.2) mg/dL Phosphorus 7.3 H (2.5-4.5) mg/dL Magnesium (1.6-2.3) mg/dL Crossmatch 05/01/18 05/01/18 05/01/18 Range/Units 05:31 05:41 10:08 RBC (4.30-5.90) m/uL Hgb (13.0-17.5) gm/dL Hct (39.0-53.0) % MCV (80.0-100.0) fL MCHC (31.0-37.0) g/dL RDW (11.5-15.5) % Plt Count (150-450) k/uL ABG pH 7.23 L (7.35-7.45) ABG pCO2 53 H (35-45) mmHg ABG pO2 79 L (83-108) mmHg Sodium (137-145) mmol/L Chloride (98-107) mmol/L Carbon Dioxide (22-30) mmol/L BUN (9-20) mg/dL Creatinine (0.66-1.25) mg/dL Glucose (74-99) mg/dL POC Glucose (mg/dL) 143 H 147 H (75-99) mg/dL Calcium (8.4-10.2) mg/dL Phosphorus (2.5-4.5) mg/dL Magnesium (1.6-2.3) mg/dL Crossmatch Microbiology - Last 24 Hours (Table) 04/27/18 05:50 Blood Culture - Preliminary Blood No Growth after 96 hours 04/30/18 00:37 Gram Stain - Preliminary Sputum Sputum Culture - Preliminary Assessment and Plan Assessment: Status post subtotal colectomy for colonic obstruction. Patient has multiple medical problems. The patient has required increasing FiO2 and pressor support. I discussed with daughter that he is very high risk. I am unsure if he will survive this hospitalization. Apparently is made DO NOT RESUSCITATE. We will continue medical supportive care.
[2018-05-01 12:25] LABS: Glucose,Whole Blood 153 mg/dL (75-99)
[2018-05-01] MEDS ORDERED: MORPHINE SULFATE 2 MG/ML SYRINGE IVP ONE (13:52)
[2018-05-01] MEDS ORDERED: MORPHINE SULFATE 2 MG/ML SYRINGE IV PRN ×2 (13:52)
[2018-05-01] MEDS ORDERED: SCOPOLAMINE 1.5MG/72HR PATCH TRANSDERM PRN (13:52)
[2018-05-01] MEDS ORDERED: ATROPINE OPHTH SOLN 1% 5ML BTL SUBLINGUAL PRN (13:52)
[2018-05-01] MEDS ORDERED: MORPHINE SULFATE (100 MG/2 ML) 100 MG in SODIUM CHLORIDE 0.9% 100 ML IV SCH (14:30)
[2018-05-01] MEDS: SODIUM CHLORIDE 0.9% 1,000 ML IV SCH (14:46)
[2018-05-01] MEDS: FILGRASTIM-SNDZ 480 MCG/0.8 ML SYRINGE SQ SCH (14:47)
[2018-05-01] MEDS: MVI, ADULT NO.4 WITH VIT K 10 ML, TRACE (CONC-1ML/DOSE) 1 ML, SODIUM ACETATE 20 MEQ, PO... IV SCH ×7 (14:48)
[2018-05-01 17:26] VITALS: BP 119/64; PULSE 35; RESP 18
--- NOTE | 2018-05-03 14:19 | P.PN ---
Subjective Progress Note Date: 05/01/18 (Late entry note, cct 35 min) Principal diagnosis: Severe sepsis and septic shock, acute hypoxic respirator failure, toxic megacolon on, status post exploratory laparoscopy and subtotal colectomy with ileostomy postop day #3 for toxic megacolon, acute on chronic renal failure, squamous cell cancer stage IV of unknown primary, history of chronic renal failure status post renal transplant on immunosuppressive agents, chronic atrial fibrillation 05/01/2018, patient seen eval examined multiple times care plan discussed with the primary service as well as life consultant patient remains in severe sepsis and septic shock with high demands for vasopressors levo fed drip has been maxed out on 47 mics patient has been on propofol he has been on TPN is currently on assist control rate of 14 tidal volume of 450 with PEEP and FiO2 is 80%, urine output is minimal, patient has dusky appearance on the extremities, labs reviewed medications reviewed, family has wishes expressed to be of no code they 're considering possible withdrawal of care as well, urine output is only 50 mL in last 6 hours, hemoglobin came down to 6 during transfusion patient despite a fever the transfusion is currently on hold, chest x-ray revealed bilateral pleural effusion and basal atelectasis dense infiltrate more so on the right side compared to left side overall not much changed ET tube NG tube and central line stable Objective - Vital Signs Vital signs: Vital Signs Temp 101.2 F H 05/01/18 12:00 Pulse 35 L 05/01/18 17:00 Resp 18 05/01/18 17:00 BP 119/64 05/01/18 16:00 Pulse Ox 57 L 05/01/18 17:00 ABP, PAP, CO, CI - Last Documented Arterial Blood Pressure 49/32 - Exam - Constitutional General appearance: average body habitus, 73-year-old white male, sedated, on mechanical ventilation - EENT Eyes: PERRLA, poor dentition, normal appearance ENT: hard of hearing Ears: bilateral: normal - Neck Neck: normal ROM Carotids: bilateral: upstroke normal, bruit absent Thyroid: bilateral: normal size - Respiratory Respiratory: bilateral: Coarse lung sounds noted bilaterally, negative: dullness , rales, rhonchi, wheezing - Cardiovascular Heart sounds: normal: S1, S2 - Gastrointestinal Diffuse distention with tenderness and hypoactive bowel sounds. Mid abdominal incision is covered with a surgical dressing, clean dry and intact, approximated , there is a right lower quadrant ileostomy, with no gas or stool General gastrointestinal: absent bowel sounds, distended, tenderness - Integumentary Integumentary: decreased turgor - Neurologic Neurologic: CNII-XII intact - Musculoskeletal Musculoskeletal: gait normal, generalized weakness, strength equal bilaterally - Psychiatric Psychiatric: unable to assess, patient is sedated on mechanical ventilation. - Labs CBC & Chem 7: 05/01/18 04:20 05/01/18 04:20 Labs: Microbiology - Last 24 Hours (Table) 04/27/18 05:50 Blood Culture - Final Blood No Growth after 144 hours 04/30/18 00:37 Gram Stain - Final Sputum Sputum Culture - Final Klebsiella pneumoniae - Imaging and Cardiology Chest x-ray: report reviewed, image reviewed (Findings as noted above) Assessment and Plan Assessment: Toxic megacolon status post exploratory laparoscopy and subtotal colectomy with ileostomy postop day #3 Acute bowel obstruction with sepsis and septic shock Suspect secondary peritonitis related to bowel obstruction Bowel perforation less likely Acute hypoxic respirator failure related to acute lung injury related to overwhelming sepsis and septic shock Squamous cell cancer of unknown primary Hemetemesis and upper GI bleed Chronic atrial fibrillation on anticoagulation Chronic renal failure is stage 2-3 with history of renal transplant and being on immunosuppressive agent Plan: Aggressive fluid resuscitation Broad-spectrum antibiotics Bicarb drip Vasopressors Patient's family has been considering comfort measures will follow clinical course closely prognosis very poor with poor likelihood of recovery Further recommendations pending plan of care as per clinical response of the patient Critical care time spent 35 minutes Time with Patient: Greater than 30
== END 2018-05-01 17:31 | disposition expired | DRG 853 ==
LOC: EC 05:22 → 5ONC 06:49 → 6ICU 23:37
PROVIDERS: ADMIT Family Medicine; ATTEND Family Medicine
PROC: 0D1B0Z4 Bypass Ileum to Cutaneous, Open Approach (ICD-10-PCS; 2018-04-28)
PROC: 0DTF0ZZ Resection of Right Large Intestine, Open Approach (ICD-10-PCS; 2018-04-28)
PROC: 5A1945Z Respiratory Ventilation, 24-96 Consecutive Hours (ICD-10-PCS; principal; 2018-04-28 07:30)
PROC: 0BH18EZ Insertion of Endotracheal Airway into Trachea, Via Natural or Artificial Opening Endoscopic (ICD-10-PCS; principal; 2018-04-28 07:30)
PROC: 02HV33Z Insertion of Infusion Device into Superior Vena Cava, Percutaneous Approach (ICD-10-PCS; principal; 2018-04-28 07:30)
PROC: 4A133B1 Monitoring of Arterial Pressure, Peripheral, Percutaneous Approach (ICD-10-PCS; principal; 2018-04-28 07:30)
PROC: 03HY32Z Insertion of Monitoring Device into Upper Artery, Percutaneous Approach (ICD-10-PCS; principal; 2018-04-28 07:30)
PROC: 4A133J1 Monitoring of Arterial Pulse, Peripheral, Percutaneous Approach (ICD-10-PCS; principal; 2018-04-28 07:30)
DX: A41.9 Sepsis, unspecified organism (principal); R65.21 Severe sepsis with septic shock; D61.810 Antineoplastic chemotherapy induced pancytopenia; J96.01 Acute respiratory failure with hypoxia; N17.0 Acute kidney failure with tubular necrosis; D62 Acute posthemorrhagic anemia; E87.4 Mixed disorder of acid-base balance; I13.2 Hypertensive heart and chronic kidney disease with heart failure and with stage 5 chronic kidney disease, or end stage renal disease; J98.11 Atelectasis; K59.31 Toxic megacolon; T86.12 Kidney transplant failure; T86.19 Other complication of kidney transplant; C80.1 Malignant (primary) neoplasm, unspecified; E78.5 Hyperlipidemia, unspecified; E83.39 Other disorders of phosphorus metabolism; I25.10 Atherosclerotic heart disease of native coronary artery without angina pectoris; I25.2 Old myocardial infarction; I48.2 Chronic atrial fibrillation; I49.3 Ventricular premature depolarization; I50.9 Heart failure, unspecified; K56.41 Fecal impaction; N40.0 Benign prostatic hyperplasia without lower urinary tract symptoms; N18.3 Chronic kidney disease, stage 3 (moderate); T45.1X5A Adverse effect of antineoplastic and immunosuppressive drugs, initial encounter; N05.8 Unspecified nephritic syndrome with other morphologic changes; Z66 Do not resuscitate; Z79.01 Long term (current) use of anticoagulants; Z79.51 Long term (current) use of inhaled steroids; Z79.82 Long term (current) use of aspirin; Z79.899 Other long term (current) drug therapy; Z82.49 Family history of ischemic heart disease and other diseases of the circulatory system; Z85.828 Personal history of other malignant neoplasm of skin; Z86.73 Personal history of transient ischemic attack (TIA), and cerebral infarction without residual deficits; Z87.891 Personal history of nicotine dependence; Z90.49 Acquired absence of other specified parts of digestive tract; Z95.1 Presence of aortocoronary bypass graft; Z95.5 Presence of coronary angioplasty implant and graft; G47.33 Obstructive sleep apnea (adult) (pediatric)
CPT/HCPCS: 36415; 36430; 36600; 43753; 71045; 74018; 74021; 74022; 74176; 80048; 80053; 81001; 82150; 82330; 82533; 82805; 83605; 83690; 83735; 84100; 84478; 85025; 85610; 85730; 86850; 86880; 86900; 86901; 86920; 87040; 87070; 87077; 87086; 87186; 87205; 88307; 93005; 94002; 94003; 94640; 96361; 96374; 96375; 99284; 99285